=== PATIENT | female | born 1955 | race Caucasian/White ===

== ENCOUNTER 2024-07-12 03:01 | Inpatient (IN) | payer MEDICARE, BC, SELFPAY ==
[2024-07-11 19:59] VITALS: BP 138/97
[2024-07-11 20:18] LABS: % Basophils 0.8 % (0-2); % Eosinophils 0.5 % (0-6); % Immature Granulocytes 0.3 % (0-0.5); % Lymphocytes 18.2 % (20.5-51.1); % Neutrophils 65.2 % (42.2-75.2); Absolute Lymphocytes 0.7 10^3/uL (1.2-3.4); Absolute Monocytes 0.6 10^3/uL (0.1-0.6); Absolute Neutrophils 2.4 10^3/uL (1.4-6.5); Hematocrit 35.2 % (37.0-47.0); Hemoglobin 12.6 g/dL (12.0-16.0); Mean Corp Hgb Conc. 35.8 g/dL (33.0-37.0); Mean Corpuscular Hgb 32.6 pg (27.0-31.0); Nucleated Red Blood Cells % 0 %; Platelet Count 364 10^3/uL (130-400); Red Blood Cell Count 3.87 10^6/uL (4.20-5.40); Red Cell Dist. Width 13.6 % (11.5-14.5); White Blood Cell Count 3.7 10^3/uL (4.8-10.8)
[2024-07-11 20:31] LABS: ALT (SGPT) 44 U/L (0-35); AST (SGOT) 46 U/L (14-36); Albumin 4.1 g/dl (3.5-5.0); Alkaline Phosphatase 89 U/L (38-126); Blood Urea Nitrogen 29 mg/dl (7-17); Calcium 9.5 mg/dl (8.4-10.2); Carbon Dioxide 17 mmol/L (22-30); Chloride 95 mmol/L (98-107); Glucose 62 mg/dl (70-99); Lipase 1041 U/L (23-300); Potassium 4.5 mmol/L (3.5-5.1); Sodium 132 mmol/L (135-145); Total Bilirubin 0.5 mg/dl (0.2-1.3); eGFR 32.46
[2024-07-11 22:15] VITALS: BMI 18.3
--- NOTE | 2024-07-11 22:23 | ED.GENMED ---
History of Present Illness
General
Chief Complaint: Abdominal Pain
Source: patient and family
Exam Limitations: none
Time Seen by Provider: 07/11/24 21:58
Nursing documentation reviewed up to this point in time: agreed with
History of Present Illness
History of Present Illness:
This is a 69-year-old female who presents to the emergency department with continued nausea and vomiting. Patient was diagnosed with small bowel obstruction while in [facility] on July 03. Patient was there visiting to support her daughters
competition. 3 days into her trip, she started to develop nausea or vomiting. She went to their version of the emergency department and was admitted for 8 days. They diagnosed her with a small bowel obstruction. She was stable enough to be
discharged to fly home under the premise that she would come directly to the emergency department here when she landed. She came home today and came directly to the ER. She states that she has ongoing abdominal discomfort. She states that her
abdomen is distended. She has not been eating solid foods only liquids.
The patient has a past medical history significant for previous bowel obstructions. Her last one was in 2010. She does have metastatic ovarian cancer. She had a hysterectomy in 2004. She had a bowel resection in 2008 in 2009.
Past History
Past History
ED Past Medical History: Cancer (Ovarian cancer), HTN and Other (Small bowel obstruction November 2010 and again in December 2010); Negative Asthma or CAD
ED Past Surgical History: Bowel resection (November 2009, lysis of adhesions and small bowel resection December 2010), Gynecological (Total hysterectomy 2004) and Other (Subcutaneous Mediport); Negative Cardiac or Cholecystectomy
Social History
Tobacco: Non-smoker
Alcohol: None
Drug: None
Personal:
Living: with family
Employment: Employed
Family History
Family History: Hypertension
Review of Systems
Review of Systems
Allergies reviewed?: Yes
All Other Systems: ROS reviewed and negative except as documented in HPI and ROS
Constitutional: Reports fatigue and sleep disturbance
EENT: Reports no symptoms
Respiratory: Reports no symptoms
Cardiac: Reports no symptoms
ABD/GI: Reports abdominal pain, nausea, vomiting and constipated; Denies diarrhea
: Reports no symptoms
Musculoskeletal: Reports no symptoms
Skin: Reports no symptoms
Neurological: Reports no symptoms
Endocrine: Reports no symptoms
Hematologic/Lymphatic: Reports no symptoms
Psychiatric: Reports anxiety
Phy Exam
General Physical Exam
General Presentation: well appearing and mild distress
General Skin: warm and dry
General Habitus: cachetic and frail
General Mental: alert
General Hydration: appears well hydrated
ENT Exam
ENT Exam: EOMI, pharynx normal, neck supple and normocephalic
Eye Exam
Eye Exam: PERRL, cornea clear and conjunctiva normal
Cardiovascular Exam
Cardiovascular Exam: regular rate/rhythm, no edema, no murmur and normal peripheral pulses
Pulmonary Exam
Pulmonary Exam: lungs clear, no respiratory distress, no rales, no crackles, no rhonchi, no stridor, no wheezing and no cough
Gastrointestinal Exam
Gastrointestinal Exam: normal bowel sounds, non tender, soft, no organomegaly and no pulsatile mass
Palpation: generalized: Minimal tenderness
Neurological Exam
Neurological Exam: alert, oriented x3, no motor deficits and speech normal
Musculoskeletal Exam
Musculoskeletal Exam: full ROM and no edema
Skin Exam
Skin Exam: normal color, warm/dry, no rash and no petechia
Psychiatric Exam
Psychiatric Exam: normal mood/affect
Course
Orders/Labs/Results
Orders:
Orders
07/11/24 20:09
Complete Blood Count/With Diff Urgent
Comprehensive Metabolic Panel Urgent
Lipase Urgent
07/12/24 00:00
CT Abd/pelvis W Iv Cont Urgent
Reason For Exam: abdominal pain with elev lipase
07/12/24 01:16
NG Tube [GI tube insertion- Treatment] ONCE
Abnormal Lab Results
07/11/24
20:09
WBC 3.7 L 10^3/uL
(4.8-10.8)
RBC 3.87 L 10^6/uL
(4.20-5.40)
Hct 35.2 L %
(37.0-47.0)
MCH 32.6 H pg
(27.0-31.0)
Absolute Lymphs (auto) 0.7 L 10^3/uL
(1.2-3.4)
Lymphocytes % 18.2 L %
(20.5-51.1)
Monocytes % 15.0 H %
(1.7-9.3)
Sodium 132 L mmol/L
(135-145)
Chloride 95 L mmol/L
(98-107)
Carbon Dioxide 17 L mmol/L
(22-30)
BUN 29 H mg/dl
(7-17)
Creatinine 1.7 H mg/dL
(0.6-1.0)
Glucose 62 L mg/dl
(70-99)
AST 46 H U/L
(14-36)
ALT 44 H U/L
(0-35)
Lipase 1041 H* U/L
(23-300)
07/11/24 20:09
07/11/24 20:09
Vital Signs
Initial and Last Documented VS:
Initial Vital Signs
Temp Pulse Resp BP Pulse Ox
97.7 F 104 16 138/97 97
07/11/24 19:59 07/11/24 19:59 07/11/24 19:59 07/11/24 19:59 07/11/24 19:59
Last Documented Vital Signs
Temp Pulse Resp BP Pulse Ox
97.7 F 104 16 138/97 98
07/11/24 19:59 07/11/24 19:59 07/11/24 19:59 07/11/24 19:59 07/11/24 22:45
*Radiology
Radiology exam reviewed: radiology read reviewed
*Pulse Oximetry
Patient hypoxic: no
*Critical Care Note
Total Time (30-74mins, 75-104mins- exclusive of procedures): 32
comment:
Critical care statement: A total of 32 minutes of critical care time was provided for this patient. This time is separate from time utilized to perform the aforementioned documented procedures. Aggregate critical care time includes only time
during which I was engaged in work directly related to the patient's care, as described above, whether at the bedside or elsewhere in the Emergency Department.
Update Note
Update Note:
NAME: DARRYN VILLAVICENCIO
DATE OF EXAM: 07/12/2024
Patient No: [id number]
Physician: RICARDO
Date of : 1955
Past Medical History (entered by Technologist):
Reason For Exam (entered by Technologist):
Other Notes (entered by Technologist): pt reports she was diagnosed w/ a SBO in [facility] on July 03. pt was in the hospital in [place] for 8 days. since then, pt has had ongoing abdominal discomfort, distension, poor PO intake,
nausea/vomiting.
Prior sent
Additional Information (per [facility]iologist):
CT ABDOMEN/PELVIS WITH CONTRAST
IMPRESSION:
1. Dilated loops of small bowel measuring up to 5.2 cm, with multiple transition point at the level of the mid abdomen (series 201 image 50, 202, 17), compatible with high-grade closed-loop bowel obstruction, likely related to internal hernia.
Mild mesenteric edema, can be correlated with lactate. No evidence of free air. Recommend surgical consultation.
2. Normal gallbladder and appendix
Incidentals:
- No obstructive uropathy.
- No hepatic or pancreatic mass.
- No abdominal aortic aneurysm.
- No acute osseous abnormality.
- No acute abnormality within the visualized lungs.
- Mild anasarca
Case discussed with Dr. Marin of the ED at 1232 AM ET
NG tube orderd at Dr Conte's request.
ED Attending Note
-
Portions of this chart may have been created with voice recognition software.� Occasional wrong word or��sound alike� substitutions may have occurred due to the inherent limitations of voice recognition software.
Discharge Plan
Departure
Patient Disposition: Admit
Date of Disposition: 07/12/24
Time of Disposition: 01:20
Presentation/result/management discussed w/ accepting MD/DO: Hospitalist
Condition: Fair
Discharge Problem:
Closed-loop small bowel obstruction
Prescriptions:
No Action
Multiple Vitamins
1 tab PO DAILY
carvedilol 6.25 MG tablet
6.25 mg PO BID
nifedipine 30 MG tablet extended release
30 mg PO DAILY
prochlorperazine maleate 10 MG tablet
10 mg PO Q6HPRN PRN (Reason: nausea)
cholecalciferol (vitamin D3) [Vitamin D3] 400 UNIT capsule
400 unit PO DAILY
Calcium
600 mg PO BID
Carboplatin And Taxol
1 dose IV .EVERY 3 WEEKS
Investigational Drug Ipafricept
1 dose IV .EVERY 3 WEEKS
nifedipine 30 MG tablet extended release 24hr
30 mg PO DAILY Qty: 60 0RF
Rx Instructions:
take one tablet in the morning each day
lactulose [Enulose] 10 GM/15 ML solution
10 gm PO BID Qty: 300 0RF
Referrals:
Larissa Reynoso DO [Family Provider] -
Interventions
Interventions:
*Risk Screen - Suicide Last Done: 07/11/24 20:02
*General Assessment Last Done: 07/11/24 22:15
*Neglect/Abuse Screening Last Done: 07/11/24 22:15
*ED- Fall Risk Assessment Last Done: 07/11/24 22:15
*ED COVID-19 Vaccine History Last Done: 07/11/24 20:02
ZM-Juodee-Jgxgemopfh Assessment Last Done: 07/11/24 22:56
Discharge Date and Time
Print Language: TURKMEN
[2024-07-11 22:58] VITALS: BP 147/80
[2024-07-11 23:00] VITALS: BP 149/77
[2024-07-12] VITALS (19 sets, daily range): BP systolic 125–166; BP diastolic 76–103; BMI 17.5
--- NOTE | 2024-07-12 01:58 | HPS.HSE ---
Family Physician
-
Family Physician: Larissa Reynoso DO
Chief Complaint
-
Abdominal pain
History of Present Illness
Patient is 67-year-old female with just arrived from [facility] and had abdominal pain. While she was seen in [place] on vacation she was admitted and diagnosed with a small bowel obstruction. She was treated conservatively and left AMA to
[place] where [place] wants to continue her treatment.
Patient has significant past medical history of hypertension, hypothyroid and hyperlipidemia. She also has a past medical history significant for cancer status post bowel resection. She had bowel resection for bowel adhesions and obstruction in
the past. 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
She was hospitalized in [facility] for 8 days. She had an NG tube over that a day.. She continued to have high amounts of output. She deferred any surgical attempt until she called to come to the [facility]. She had mild BRADEN and some
hyponatremia to sodium of 128 which was treated with IV fluids. No other complications noted on that hospitalization.
In the emergency department here patient was afebrile, blood pressure was 130/97 with a pulse of 104 and she was satting 97% on room air.
CBC was unremarkable stop electrolytes BUN/creatinine were notable for a bicarb of 17 creatinine of 1.7 and a BUN of 29. Glucose was 62. She had a markedly elevated lipase level of 1041. LFTs otherwise abnormal.
CT scan of the abdomen pelvis showed dilated loops of small bowel measuring up to 5.2 cm with multiple transition point at the level of the mid abdomen compatible with high-grade closed-loop bowel obstruction, likely related to internal hernia.
Mild mesenteric edema. No gallbladder and no appendix. There were no hepatic or pancreatic mass.
Medical History
Past Medical History
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
Past Surgical History: Reports Bowel Resection (2009, 2010), Gynocological (Hysterectomy with oophorectomy) and Other (Splenectomy)
Social History
Tobacco: Non-smoker
Alcohol: None
Drug: None
Personal:
Living: With Family
Family History
Family History: Not pertinent
Allergies / Home Medications
Allergies reflects when Allergies were last updated in [employer].
Home Medications with original date entered in [employer]
Allergy/Medication List:
Allergies
Allergy/AdvReac Type Severity Reaction Status Date / Time
amoxicillin Allergy Rash Verified 11/01/18 12:44
Home Medications
Multiple Vitamins 1 tab PO DAILY 02/18/11
Calcium 600 mg PO BID 09/29/15
Carboplatin And Taxol 1 dose IV .EVERY 3 WEEKS last dose this past 09/2609/29/15
Investigational Drug Ipafricept 1 dose IV .EVERY 3 WEEKS 09/29/15
carvedilol 6.25 mg tablet 6.25 mg PO BID 09/29/15
cholecalciferol (vitamin D3) 10 mcg (400 unit) capsule (Vitamin D3) 400 unit PO DAILY 09/29/15
nifedipine 30 mg tablet,extended release 30 mg PO DAILY 09/29/15
prochlorperazine maleate 10 mg tablet 10 mg PO Q6HPRN PRN nausea 09/29/15
nifedipine 30 mg tablet,extended release 24 hr 30 mg PO DAILY ##60 11/23/17
lactulose 10 gram/15 mL oral solution (Enulose) 10 gm PO BID #300 mL 06/28/18
Review of Systems
-
History Source: Patient
Constitutional: Reports No Symptoms
EENT: Reports No Symptoms
Respiratory: Reports No Symptoms
Cardiac: Reports No Symptoms
Abdomen/GI: Reports Abdominal Pain
: Reports No Symptoms
Musculoskeletal: Reports No Symptoms
Skin: Reports No Symptoms
Neurological: Reports No Symptoms
Endocrine: Reports No Symptoms
Hematologic/Lymphatic: Reports No Symptoms
Psych: Reports No Symptoms
Physical Exam
Vital Signs
Vital Signs
Temp Pulse Resp BP Pulse Ox
97.7 F 104 16 138/97 98
07/11/24 19:59 07/11/24 19:59 07/11/24 19:59 07/11/24 19:59 07/11/24 22:45
Physical Exam
General: Poor Appetite
HEENT: NormoCephalic, Anicteric, Moist mucous membranes and Atraumatic
Respiratory: Clear
Cardiac: S1/S2 and Regular Rhythm
Breast: Deferred by me
GI: Soft, Non Tender, Non Distended and Other (NG tube with bilious output)
Rectal: Deferred by Provider
Genito-urinary: Deferred by me
Skin: Warm
Neuro: AO x 3 and Nonfocal/grossly intact
Hematologic/Lymphatic: No Lymphadenopathy
Psych: Calm
Laboratory Results
-
07/11/24 20:09
07/11/24 20:09
Laboratory Results
Total Bilirubin 0.5 mg/dl (0.2-1.3) 07/11/24 20:09
AST 46 U/L (14-36) H 07/11/24 20:09
ALT 44 U/L (0-35) H 07/11/24 20:09
Alkaline Phosphatase 89 U/L (38-126) 07/11/24 20:09
Lipase 1041 U/L (23-300) H* 07/11/24 20:09
Data Reviewed
-
CT Scan: Report Reviewed by me
Lab Data: Labs Reviewed by me
Old Records: Reviewed
Impression/Plan
-
IMPRESSION:
69-year-old with multiple intra-abdominal surgery presenting to the emergency department after being diagnosed with small bowel obstruction secondary to of the lesions in [place] with 8-day stay requiring NG tube decompression. She avoided surgery
to come [place] the [place].
She is currently has an NG tube placed in the ED with copious amount of bilious output. She is pain-free.
PLAN:
Small bowel obstruction�on the basis of adhesions, numerous prior abdominal surgery, history of previous SBO with adhesions status post surgical resection. 8 days of NG decompression in [place]. She is pending graduation on July 22.
-Admit to MedSurg
-Continue NG to low intermittent suction
-N.p.o.
-Pain control and antiemetics
-IV fluids with D5 LR for now
-Monitor serum sodium and creatinine.
-Surgery aware and will be seeing patient in the morning likely will require intervention
Hypertension
� IV metoprolol 5 every 6 with hold parameters, patient hypertensive and on carvedilol
� IV enalapril for lisinopril if needed
Hypothyroid - no levothyroxine in 8 days, replacement appropriate at around 70%. Will start with ~50% of her regular dose and titrate if stable
-Continue levothyroxine, giving IV formulation. She is on 112 MCG daily. Starting 50 mcg IV daily
DVT prophylaxis�heparin subcu for now
CODE STATUS�full code
[2024-07-12 02:45] LABS: Lactic Acid 0.8 mmol/L (0.7-2.0)
[2024-07-12] MEDS: D5/0.9% SODIUM CHLORIDE 1000 IV ×2 (05:05→22:00)
[2024-07-12] MEDS: LOPRESSOR 52.5 MG IV ×3 (05:26→23:09)
--- NOTE | 2024-07-12 05:46 | TRANSFER ---
Pt arrived from ED at 0430 w dx SBO. NGT to right nare set to LIWS, no flushes. NGT put out green/brown bilious drainage. VS WNL. Pt AAOx4, able to make all needs known. Discussed plan of care. Bed in lowest position, call noguera within reach.
[2024-07-12] MEDS: HEPARIN 5000 UNITS SC ×3 (07:34→23:12)
[2024-07-12 07:57] LABS: Venous Blood Gas B.E. -5.6 mmol/L (-4 to +4); Venous Blood Gas HCO3 20.7 mmol/L (22-27); Venous Blood Gas O2 Sat % 74.4 %; Venous Blood Gas pCO2 43 mmHg (35-48); Venous Blood Gas pH 7.29 (7.32-7.43); Venous Blood Gas pO2 45 mmHg (30-50)
[2024-07-12 08:00] LABS: Venous Blood Gas O2 Therapy ra
[2024-07-12 08:03] LABS: Hemoglobin 10.8 g/dL (12.0-16.0); Mean Corpuscular Hgb 32.7 pg (27.0-31.0); Mean Corpuscular Volume 90.9 fL (81.0-99.0); Mean Platelet Volume 10.1 fL (7.4-10.4); Platelet Count 368 10^3/uL (130-400); Red Cell Dist. Width 13.6 % (11.5-14.5); White Blood Cell Count 4.5 10^3/uL (4.8-10.8)
[2024-07-12 08:11] LABS: Lactic Acid 0.7 mmol/L (0.7-2.0)
[2024-07-12] MEDS: NSS (PRESERVATIVE FREE) 10 ML IV (08:45)
[2024-07-12] MEDS: PROTONIX IV 40 MG IV (08:46)
[2024-07-12 09:06] LABS: Blood Urea Nitrogen 30 mg/dl (7-17); Calcium 8.7 mg/dl (8.4-10.2); Carbon Dioxide 16 mmol/L (22-30); Chloride 97 mmol/L (98-107); Estimated Creatinine Clearance 28 ml/min; Glucose 98 mg/dl (70-99); Magnesium 1.9 mg/dl (1.6-2.3); Phosphorus 4.4 mg/dl (2.5-4.5); Potassium 4.3 mmol/L (3.5-5.1); Sodium 133 mmol/L (135-145); Triglycerides 133 mg/dl (10-149); eGFR 34.91
--- NOTE | 2024-07-12 09:28 | W.SUR.PREOP ---
Pre-Operative Surgical Note
-
I have examined this patient prior to the performance of the scheduled procedure.
The patient's condition is unchanged from the time of the current History and
Physical and the patient is able to undergo the scheduled procedure.
--- NOTE | 2024-07-12 09:30 | CON.GS ---
Addendum entered and electronically signed by Jayson Nettles MD 07/12/24 10:13:
I saw and examined the patient independently.
The resident's documentation was reviewed and I agree with the note, assessment and plan except where noted below.
Comment: This is a 69-year-old female with a history of ovarian cancer, status post hysterectomy and nephrectomy, splenectomy for metastatic disease, small bowel resection and lysis of adhesions for small bowel obstruction who presents with 10-day
history of abdominal pain, nausea vomiting that began while she was on a trip in [place]. She was admitted at a hospital there and managed nonoperatively. She left AMA to return to the night states and is here for further evaluation and management.
Given no significant improvement in her small bowel obstruction both clinically and radiographically will plan for operative exploration today. Also given how long she has been without food we will plan to place a PICC and start TPN later today.
Will plan for diagnostic laparoscopy, lysis of adhesions possible open.
Risks/Benefits/Alternatives, expected postoperative course and possible complications (bleeding, infection, injury to surrounding structures, acute/chronic pain) discussed at length. Patient wishes to proceed with surgery. All questions answered.
Consent obtained.
I spent 70 minutes in total for the care of this patient today including direct patient care and counseling, reviewing labs, imaging, coordination of care, as well as documentation.
Original Note:
Consultation
-
Date/Time Consultation Requested: 07/12 04:31
Date/Time Consultation Performed: 07/12 07:45
Performing Provider: Dr. Jayson Nettles
Reason for Consultation: SBO
Medical History
-
Chief Complaint: SBO
History of Present Illness:
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 She was in [place] when she started to have abdominal pain on 07/01. She was admitted to the hospital in [facility] with a small bowel obstruction. She was there for 8 days with NG tube placement and then left AMA for further treatment in the [place].
In the ED, patient is afebrile, heart rate 104, satting well on room air. Creatinine 1.7, bun 29, glucose 62, lipase 1041. LFTs otherwise unremarkable. CT scan of the abdomen pelvis showed dilated loops of small bowel measuring up to 5.2 cm with
multiple transition point at the level of the mid abdomen compatible with high-grade closed-loop bowel obstruction, likely related to internal hernia. Mild mesenteric edema. No gallbladder and no appendix. There were no hepatic or pancreatic mass.
Past Medical History
Past Medical History: Other (Ovarian cancer diagnosed 2004, hypertension, hypercholesterolemia, hypothyroidism, oral squamous cell cancer s/p resection)
Past Surgical History: Other (Bowel resection (2009 due to metastatic ovarian cancer, 2010 SBO due to adhesions), hysterectomy and oophorectomy, splenectomy (2020 due to metastatic ovarian cancer) )
Social History
Tobacco: Non-Smoker
Alcohol: None
Drug: None
Personal:
Living: With Family
Allergies / Home Medications
Allergy/AdvReac Type Severity Reaction Status Date / Time
amoxicillin Allergy Rash Verified 11/01/18 12:44
�Medication �Instructions �Recorded �Confirmed �Type
Multiple Vitamins 1 tab PO DAILY 02/18/11 07/12/24 History
Calcium 600 mg PO BID 09/29/15 07/12/24 History
Carboplatin And Taxol 1 dose IV .EVERY 3 WEEKS last dose 09/29/15 07/12/24 History
this past 09/26
Investigational Drug Ipafricept 1 dose IV .EVERY 3 WEEKS 09/29/15 07/12/24 History
carvedilol 6.25 mg tablet 3.125 mg PO BID 09/29/15 07/12/24 History
cholecalciferol (vitamin D3) 10 400 unit PO DAILY 09/29/15 07/12/24 History
mcg (400 unit) capsule (Vitamin D3)
nifedipine 30 mg tablet,extended 10 mg PO DAILY 09/29/15 09/29/15 History
release
prochlorperazine maleate 10 mg 10 mg PO Q6HPRN PRN nausea 09/29/15 07/12/24 History
tablet
nifedipine 30 mg tablet,extended 30 mg PO DAILY ##60 11/23/17 07/12/24 Rx
release 24 hr
lactulose 10 gram/15 mL oral 10 gm PO BID #300 mL 06/28/18 07/12/24 Rx
solution (Enulose)
atorvastatin 10 mg tablet 10 mg PO HS 07/12/24 07/12/24 History
levothyroxine 112 mcg tablet 112 mcg PO DAILY 07/12/24 07/12/24 History
lisinopril 10 mg tablet 10 mg PO DAILY 07/12/24 07/12/24 History
magnesium oxide 400 mg PO DAILY 07/12/24 07/12/24 History
Review of Systems
-
History Source: Patient
Constitutional: No Symptoms
EENT: No Symptoms
Respiratory: No Symptoms
Cardiac: No Symptoms
Abdomen/GI: No Symptoms and Other (No bowel movements, not passing gas)
: No Symptoms
Neurological: No Symptoms
A 10 point review of systems was completed, and was negative except as per HPI.
Physical Exam
Vital Signs
Temp Pulse Resp BP Pulse Ox
97.6 F 72 16 158/84 98
07/12/24 08:08 07/12/24 08:08 07/12/24 08:08 07/12/24 08:08 07/12/24 08:08
07/11/24 07/12/24 07/13/24
06:59 06:59 06:59
Actual Weight 52.163 kg
Body Mass Index (BMI) 17.5
Lab Results
07/12/24 07:41
07/12/24 07:41
WBC 4.5 10^3/uL (4.8-10.8) L 07/12/24 07:41
Hgb 10.8 g/dL (12.0-16.0) L 07/12/24 07:41
Hct 30.0 % (37.0-47.0) L 07/12/24 07:41
Plt Count 368 10^3/uL (130-400) 07/12/24 07:41
Abs Immat Gran (auto) 0.0 10^3/uL (0-0.05) 07/11/24 20:09
Neutrophils % 65.2 % (42.2-75.2) 07/11/24 20:09
Physical Exam
General: No Apparent Distress and Comfortable
Respiratory: Non Labored Respirations
Cardiac: Regular Rhythm
GI: Soft, Distended (tympanic ) and Incisions
Skin: Warm and Dry
Neuro: AO x 3
Psych: Calm
Assessment / Plan
-
61-year-old female presenting with small bowel obstruction
AFVSS
Cr downtrending, WBC low
No complaints of ab pain, N/V, but has not been passing gas or BM since hospitalization in [place]
Is not currently on any chemo therapy for Ovarian cancer, but was planning on discussing re-starting with heme/onc this friday.
Plan:
--To OR today for exploratory laparotomy - expected twisting of small bowel causing SBO with potential loss of blood flow to the area given CT findings
--NPO
--NG tube with sips of clears for comfort
--PPI
--Pre-op 2g cefazolin
--TPN as no PO intake for last several days
--Pain management
--IVF
--Sq heparin for DVT
[2024-07-12 12:07] LABS: Prealbumin (Transthyretin) 16.9 mg/dl (17.6-36.0)
--- NOTE | 2024-07-12 12:38 | W.IMMPOSTOP ---
Addendum entered and electronically signed by Jayson Nettles MD 07/15/24 14:41:
for CDI purposes: the bowel was noted to be ACUTELY ischemic
Original Note:
Surgical Immed Post Op Note
-
Primary Surgeon: Jayson Nettles MD
Assisting Surgeon: BETTINA Patton
Pre-op Diagnosis: Small bowel obstruction, history of metastatic ovarian disease
Post-op Diagnosis: Same
Procedure Performed:
1. Laparoscopic converted to open lysis of adhesions
2. Small bowel resection
3. Peritoneal nodule biopsy.
Anesthesia Type: General
Specimen / Cultures:
1. Small bowel
2. Peritoneal nodule
Estimated Blood Loss: 11 cc
Complications: None
Operative Findings: 2 adhesions to the anterior abdominal wall, questionable metastatic implants. More definitive looking metastatic implants noted in the left upper quadrant abdominal wall taken the specimen #2. Significantly strictured and
ischemic bowel noted around one of the adhesions, likely the transition point. Conversion to open for small bowel resection (specimen #1) and further lysis of adhesions. A [id number], functional end-to-end stapled anastomosis was created using 2
firings of an 80 BRUNO purple. The common enterotomy staple line was oversewn with 3-0 silk pops and the mesentery defect was closed. About 1.5 L of enteric contents was milked back retrograde to the stomach and evacuated through her NG.
POST OP PLAN:
Imaging: None
Labs: Routine AM
Diet: N.p.o., IV fluids. Plan to start TPN as soon as PICC line access obtained.
Analgesia: IV Tylenol, okay for Toradol, Dilaudid 0.5mg q2h PRN
Neuro/vascular checks: q4h
AC/AP: Hold Therapeutic AC, Ok for DVT PPx
Activity: Ad Cristy
Wound/Incisions/Drains: Routine
Abx: None
Dispo: RNF, anticipate return of bowel function. Anticipate a 4 to 5-day stay in the hospital.
[2024-07-12 13:15] LABS: Glucose - Point of Care 83 mg/dl (70-99)
[2024-07-12] MEDS: LOPRESSOR IV (13:55)
[2024-07-12] MEDS: NOVOLOG FLEXPEN-LOW RESISTANCE SC ×2 (13:55→17:56)
--- NOTE | 2024-07-12 14:17 | W.PN.HOSP.TC ---
Today's Communication/Plan
-
Continue current care
Assessment / Plan
Assessment / Plan
Gen-AAOx3, NAD
HEENT-NC, AT, anicteric, clear oral mm
Neck-supple
CV-reg, no M, +S1/S2
Lungs-clear B/L
Abd-soft, NT, ND
Ext-no edema
Musculoskeletal-no cyanosis, clubbing
Skin-warm and dry
Neuro-grossly non-focal
Psych-calm, cooperative
Recurrent small bowel obstruction -stable after laparoscopic/open lysis of adhesions, 07/12. This is her second bout of SBO.
N.p.o. per general surgery. Anticipate TPN given need for bowel recovery. She has been n.p.o. for at least 8 days as she was not fed during her hospitalization in [place] prior to hospitalization in our facility. Prealbumin 16.9.
Leukopenia -unclear etiology. Perhaps due to investigational drug treatment. Monitor for now.
Hyponatremia -likely chronic. Monitor for now.
Lipase elevation -no evidence of pancreatitis clinically. Pancreas on CT scan is atrophic without focal lesions.
CKD 3A -suspect renal function at baseline.
History of metastatic ovarian cancer -2004. [facility]. Due for follow-up in the future. Has chemotherapy port in place.
Oral cancer -2022
Essential hypertension -stable.
Hyperlipidemia -on atorvastatin.
Hypothyroidism -levothyroxine.
Full code
Anticipated Discharge: > 48 hours
Subjective/Interval History
-
Date of Service: July 12, 2024
Patient seen and examined in recovery room. No complaints.
Objective Data
-
Labs:
Laboratory Results
07/12/24
07:41
WBC 4.5 L
Hgb 10.8 L
Hct 30.0 L
Plt Count 368
Sodium 133 L
Potassium 4.3
Chloride 97 L
Carbon Dioxide 16 L
BUN 30 H
Creatinine 1.6 H
Glucose 98
Calcium 8.7
Vital Signs:
Vital Signs
Temp Pulse Resp BP Pulse Ox
97.2 F 75 14 125/79 100
07/12/24 13:55 07/12/24 13:45 07/12/24 13:45 07/12/24 13:45 07/12/24 13:55
I&O
07/11/24 07/12/24 07/13/24
06:59 06:59 06:59
Intake Total 52.5 / 52.5 100 / 100
Output Total 200 / 200 250 / 250
Balance -147.5 / -147.5 -150 / -150
Review of Systems
-
History Source: Patient
All other systems: Reviewed and negative
--- NOTE | 2024-07-12 14:32 | CM ---
CM following re: discharge planning.
Reviewed pt's chart, met with pt and pt's at bedside.
Pt is a 69 year old female, admitted with primary dx of Small bowel obstruction, history of metastatic ovarian disease. pt returned from OR and information obtained from pt's .
Per he and the [pt live in a 2SH, 2 steps to enter, have 2 supportive children. pt's described the [pt as independent in all areas [employer]. No DMF, VN or SNF history. Pt's stated that pt has been receiving treatment at [facility] for the past 20 years.
PCP: Larissa Reynoso
Pharmacy: [facility].
D/C plan: home with anticipated no needs. to transport at discharge.
CM will follow with discharge plan updates as hospitalization progresses
--- NOTE | 2024-07-12 14:46 | PTCARENOTE ---
pt returned from PACU drowsy but responds to verbal stimuli. VS WNL, on RA. 3 small lap sites across abd and 1 midline primiseal with drainage present and marked. Ice applied. Right NG @60 hooked up to LIS. IVF. SCDs, CB in reach,
[2024-07-12] MEDS: OFIRMEV 100 IV (17:00)
[2024-07-12] MEDS: LEVOTHROID 50 MCG IV (17:01)
[2024-07-12 17:55] LABS: Glucose - Point of Care 116 mg/dl (70-99)
[2024-07-12] MEDS: Parenteral Nutrition, Central 770 IV (21:03)
[2024-07-12] MEDS: DILAUDID 0.25 MG IV (23:11)
[2024-07-12 23:55] LABS: Glucose - Point of Care 295 mg/dl (70-99)
[2024-07-13] MEDS: NOVOLOG FLEXPEN-LOW RESISTANCE 3 UNITS SC ×2 (01:08→06:30)
[2024-07-13] MEDS: D5/0.9% SODIUM CHLORIDE IV (01:47)
[2024-07-13] MEDS: NSS 1000 IV (01:47)
[2024-07-13 03:00] VITALS: BP 140/87
[2024-07-13 04:45] VITALS: BMI 17.6
[2024-07-13] MEDS: LOPRESSOR 52.5 MG IV ×4 (05:37→21:57)
[2024-07-13 06:26] LABS: Glucose - Point of Care 280 mg/dl (70-99)
[2024-07-13 07:01] LABS: Blood Urea Nitrogen 27 mg/dl (7-17); Carbon Dioxide 23 mmol/L (22-30); Chloride 104 mmol/L (98-107); Estimated Creatinine Clearance 34 ml/min; Glucose 304 mg/dl (70-99); Lipase 308 U/L (23-300); Magnesium 2.1 mg/dl (1.6-2.3); Phosphorus 2.6 mg/dl (2.5-4.5); Potassium 4.1 mmol/L (3.5-5.1); Sodium 134 mmol/L (135-145); eGFR 44.79
[2024-07-13 07:19] VITALS: BP 162/96
[2024-07-13] MEDS: PROTONIX IV 40 MG IV (09:28)
[2024-07-13] MEDS: HEPARIN 5000 UNITS SC ×2 (09:28→17:23)
[2024-07-13] MEDS: NSS (PRESERVATIVE FREE) 10 ML IV (09:28)
--- NOTE | 2024-07-13 10:04 | W.PN.GS2 ---
Today's Communication / Plan
-
-- NPO, NGT (OK for sips given dry mouth)
-- TPN re-ordered, no need for additional IVF
Assessment / Plan
-
Patient is a 69 yo F p/w adhesive complete SBO
POD# s/p laparoscopic to open HUGO, SBR, and biopsy of peritoneal nodules
AVSS
Repeat CBC for tomorrow, CMP notable for hyponatremia, improved BRADEN, elevated glucose
Overall recovering well. Awaiting return of bowel function. Discussed that given the chronicity of her SBO this may take some time and would likely treat more conservatively. No significant changes from a general surgery perspective.
-- NPO, NGT (OK for sips given dry mouth)
-- TPN re-ordered, no need for additional IVF
-- Pain control: Tylenol, IV Dilaudid PRN
-- OOB/ambulate
-- DVT: SQH
-- GI: PPI
Subjective Data
-
Date of Service: July 13, 2024
No significant complaints. Pain overall well-controlled, she does report some soreness in her abdomen particularly with movement. No nausea or vomiting. No flatus or BM. Minimal ambulation. Valdes removed. Afebrile.
Objective Data
-
Intake and Output
07/12/24 07/13/24 07/14/24
06:59 06:59 06:59
Intake Total 52.5 / 52.5 100 / 100
Output Total 200 / 200 700 / 700
Balance -147.5 / -147.5 -600 / -600
Intake:
IV fluids (Total) 100 / 100
Normosol 100 / 100
IV piggybacks 52.5 / 52.5
Output:
Gastrointestinal tube output ( 200 / 200 100 / 100
Total)
[place] Sump 200 / 200 100 / 100
Urine, Valdes 600 / 600
Vital Signs
Temp Pulse Resp BP Pulse Ox
98.0 F 88 16 162/96 98
07/13/24 07:19 07/13/24 07:19 07/13/24 07:19 07/13/24 07:19 07/13/24 07:19
Lab Results
07/12/24 07:41
07/13/24 05:46
Calcium 8.0 mg/dl (8.4-10.2) L 07/13/24 05:46
Phosphorus 2.6 mg/dl (2.5-4.5) 07/13/24 05:46
Magnesium 2.1 mg/dl (1.6-2.3) 07/13/24 05:46
Total Bilirubin 0.5 mg/dl (0.2-1.3) 07/11/24 20:09
AST 46 U/L (14-36) H 07/11/24 20:09
ALT 44 U/L (0-35) H 07/11/24 20:09
Alkaline Phosphatase 89 U/L (38-126) 07/11/24 20:09
Total Protein 7.0 g/dl (6.3-8.2) 07/11/24 20:09
Albumin 4.1 g/dl (3.5-5.0) 07/11/24 20:09
Physical Exam
-
Gen: NAD
HEENT: minimal dark bilious
Abd: soft, tender to palpation diffusely, mild distension, non-peritoneal, mild strike through of midline dressing
Patient has a valdes catheter: No
Patient has a central line: No
--- NOTE | 2024-07-13 11:02 | PN.CDI ---
CDI
- -
CDI:
Physician Documentation Request
Admit Date: 07/12/24 03:01
Dear Doctor Charlene,
Please review the following and provide your response in the progress notes.
Clinical Indicators:
Height: 5'8
Weight: 115 lbs
BMI: 17.6
If possible, please provide an associated diagnosis related to the abnormal BMI, such as:
Underweight
Cachectic
Other (please specify)
Use of terms such as suspected, likely, concern for, or probable (associated with a specific diagnosis that is being evaluated, monitored, or treated as if it exists) are acceptable and can be coded in the inpatient setting, when documented at the
time of discharge.
Thank you,
Lina Kennedy RN
CDI Specialist
Please use your independent medical judgment in providing your response.
--- NOTE | 2024-07-13 11:04 | W.PN.HOSP.TC ---
Addendum entered and electronically signed by Tashi Chang DO 07/13/24 12:16:
Underweight - BMI 17.6.
Original Note:
Today's Communication/Plan
-
Lantus/NovoLog
Monitor glucoses
Hemoglobin A1c
Incentive spirometry
Assessment / Plan
Assessment / Plan
Gen-AAOx3, NAD
HEENT-NC, AT, anicteric, clear oral mm
Neck-supple
CV-reg, no M, +S1/S2
Lungs-clear B/L
Abd-soft, NT, ND
Ext-no edema
Musculoskeletal-no cyanosis, clubbing
Skin-warm and dry
Neuro-grossly non-focal
Psych-calm, cooperative
Recurrent small bowel obstruction -stable after laparoscopic/open lysis of adhesions, 07/12. This is her second bout of SBO.
N.p.o. per general surgery, await return of bowel function. Continue TPN per surgical service. She has been n.p.o. for at least 8 days as she was not fed during her hospitalization in [place] prior to hospitalization in our facility. Prealbumin
16.9.
Mcmillan catheter removed 07/13 morning. Patient able to void.
Leukopenia -unclear etiology. Perhaps due to investigational drug treatment. Monitor for now.
TPN induced hyperglycemia -start basal/bolus insulin [id number]. Monitor closely. Carbohydrate content of TPN reduced by surgical service.
Hyponatremia -likely chronic. Monitor for now. Sodium improving.
Lipase elevation -no evidence of pancreatitis clinically. Pancreas on CT scan is atrophic without focal lesions.
BRADEN on CKD 3A -suspect BRADEN related to volume depletion, now improving. Creatinine 1.7 admission, 1.3 today. Patient states her creatinine was 2.5 in [place] last week.
History of metastatic ovarian cancer -2004. [facility]. Due for follow-up in the future. Has chemotherapy port in place.
Oral cancer -2022
Essential hypertension -stable.
Hyperlipidemia -on atorvastatin.
Hypothyroidism -levothyroxine.
Full code
Anticipated Discharge: > 48 hours
Subjective/Interval History
-
Date of Service: July 13, 2024
Patient seen and examined. Pain under reasonable control. No complaints.
Objective Data
-
Labs:
Laboratory Results
07/13/24
05:46
Sodium 134 L
Potassium 4.1
Chloride 104
Carbon Dioxide 23
BUN 27 H
Creatinine 1.3 H
Glucose 304 H
Calcium 8.0 L
Vital Signs:
Vital Signs
Temp Pulse Resp BP Pulse Ox
98.0 F 88 16 162/96 98
07/13/24 07:19 07/13/24 07:19 07/13/24 07:19 07/13/24 07:19 07/13/24 07:19
I&O
07/12/24 07/13/24 07/14/24
06:59 06:59 06:59
Intake Total 52.5 / 52.5 100 / 100
Output Total 200 / 200 700 / 700
Balance -147.5 / -147.5 -600 / -600
Review of Systems
-
History Source: Patient
All other systems: Reviewed and negative
[2024-07-13 11:06] VITALS: BP 165/93
[2024-07-13] MEDS: LANTUS 0.1 UNITS SC (11:23)
[2024-07-13 11:24] LABS: Glucose - Point of Care 221 mg/dl (70-99)
[2024-07-13] MEDS: NOVOLOG FLEXPEN 5 UNITS SC ×2 (12:35→17:31)
[2024-07-13] MEDS: NOVOLOG FLEXPEN-LOW RESISTANCE 2 UNITS SC (12:35)
--- NOTE | 2024-07-13 14:03 | CM ---
Reviewed the chart notes and spoke with the patient at the bedside. NGT in place. TPN infusing. CM Consult for home TPN. Clinicals faxed to [facility]. CM continues to be available to patient/family and is monitoring medical plan for needs at
discharge.
Plan: Discharge plans will depend on the patient's progress.
[2024-07-13 15:03] LABS: Glycohemoglobin (HgbA1c) 4.8 % (4.0-5.6)
[2024-07-13 15:12] VITALS: BP 169/96
[2024-07-13] MEDS: LEVOTHROID 50 MCG IV (17:19)
[2024-07-13] MEDS: NOVOLOG FLEXPEN-LOW RESISTANCE SC (17:30)
[2024-07-13 17:31] LABS: Glucose - Point of Care 145 mg/dl (70-99)
[2024-07-13] MEDS: OFIRMEV 100 IV (17:48)
[2024-07-13] MEDS: Parenteral Nutrition, Central 780 IV (21:18)
[2024-07-13 23:12] VITALS: BP 159/93
[2024-07-13 23:56] LABS: Glucose - Point of Care 143 mg/dl (70-99)
[2024-07-14] MEDS: NOVOLOG FLEXPEN-LOW RESISTANCE SC ×5 (00:24→23:54)
[2024-07-14] MEDS: NOVOLOG FLEXPEN SC (00:34)
[2024-07-14] MEDS: HEPARIN 5000 UNITS SC ×4 (00:50→23:44)
[2024-07-14 03:00] LABS: Glucose - Point of Care 136 mg/dl (70-99)
--- NOTE | 2024-07-14 03:05 | W.PN.UPDATE ---
Update Note
Progress Note Update
Midnight accucheck 143,�Novolog 5 unit SC Q6H dose held. Rechecked� 3 AM�glucose result 136.� Standing Q6H Novolog 5 unit SC coverage on hold, restart as per Attending.
[2024-07-14] MEDS: LOPRESSOR 52.5 MG IV ×4 (04:11→23:42)
[2024-07-14] MEDS: OFIRMEV 100 IV (04:52)
[2024-07-14 05:36] VITALS: BMI 17.5
[2024-07-14 05:47] LABS: Glucose - Point of Care 127 mg/dl (70-99)
[2024-07-14 07:39] LABS: Hematocrit 25.9 % (37.0-47.0); Hemoglobin 9.3 g/dL (12.0-16.0); Mean Corp Hgb Conc. 35.9 g/dL (33.0-37.0); Mean Corpuscular Hgb 33.1 pg (27.0-31.0); Mean Corpuscular Volume 92.2 fL (81.0-99.0); Mean Platelet Volume 12.4 fL (7.4-10.4); Platelet Count 340 10^3/uL (130-400); Red Blood Cell Count 2.81 10^6/uL (4.20-5.40); Red Cell Dist. Width 14.2 % (11.5-14.5); White Blood Cell Count 7.5 10^3/uL (4.8-10.8)
[2024-07-14 07:40] VITALS: BP 168/95
[2024-07-14 07:53] LABS: Blood Urea Nitrogen 28 mg/dl (7-17); Calcium 8.6 mg/dl (8.4-10.2); Carbon Dioxide 24 mmol/L (22-30); Chloride 108 mmol/L (98-107); Estimated Creatinine Clearance 44 ml/min; Glucose 119 mg/dl (70-99); Magnesium 2.1 mg/dl (1.6-2.3); Phosphorus 2.3 mg/dl (2.5-4.5); Potassium 4.3 mmol/L (3.5-5.1); Sodium 140 mmol/L (135-145); eGFR > 60.00
[2024-07-14] MEDS: NSS (PRESERVATIVE FREE) 10 ML IV (08:11)
[2024-07-14] MEDS: PROTONIX IV 40 MG IV (08:11)
[2024-07-14] MEDS: LANTUS 0.1 UNITS SC (08:12)
[2024-07-14 09:13] LABS: % Basophils 0.1 % (0-2); % Eosinophils 0.1 % (0-6); % Immature Granulocytes 0.8 % (0-0.5); % Monocytes 6.9 % (1.7-9.3); % Neutrophils 84.1 % (42.2-75.2); Absolute Immature Granulocytes 0.1 10^3/uL (0-0.05); Absolute Lymphocytes 0.6 10^3/uL (1.2-3.4); Absolute Monocytes 0.5 10^3/uL (0.1-0.6); Absolute Neutrophils 6.3 10^3/uL (1.4-6.5); Nucleated Red Blood Cells % 0 %
--- NOTE | 2024-07-14 11:13 | W.PN.GS2 ---
Addendum entered and electronically signed by Lalo Barillas MD 07/14/24 11:35:
I saw and examined the patient.
The resident's note was reviewed and I agree with the note.
Comment: Stable. No complaints. No flatus yet. Aquacel OK, ab exam soft, mild distention, approp ttp, NGT with scant bilious drainage. Cont current mgmt. TPN renewed, phos increased.
Original Note:
Today's Communication / Plan
-
Cont TPN
Encourage OOB
Assessment / Plan
-
Patient is a 69 yo F p/w adhesive complete SBO
POD#2 s/p laparoscopic to open HUGO, SBR, and biopsy of peritoneal nodules
AVSS
WBC wnl, however prior to surgery leukopenic. BRADEN resolved.
Pathology pending
Overall recovering well. Awaiting return of bowel function. Discussed that given the chronicity of her SBO this may take some time and would likely treat more conservatively. No significant changes from a general surgery perspective. Pt appears
motivated to recover quickly.
-- NPO, NGT (OK for sips given dry mouth) - await for return of bowel function before advancing diet.
-- TPN re-ordered, no need for additional IVF
-- Pain control: Tylenol, IV Dilaudid PRN
-- OOB/ambulate
-- DVT: SQH
-- GI: PPI
Subjective Data
-
Date of Service: July 14, 2024
Pt is feeling tired, but has evident motivation to get better and plans to walk around today with nursing staff. No gas or BM yet, denies N/V. Wants to get better quickly.
Objective Data
-
Intake and Output
07/13/24 07/14/24 07/15/24
06:59 06:59 06:59
Intake Total 100 / 100 2069
Output Total 700 / 700 260 / 260
Balance -600 / -600 1809
Intake:
Oral fluids 0 / 0
IV fluids (Total) 100 / 100 300 / 300
Normosol 100 / 100
IV piggybacks 450 / 450
TPN/PPN 780 / 780
Amount instilled into GI Tube ( 540 / 540
Total)
[place] Sump 540 / 540
Output:
Gastrointestinal tube output ( 100 / 100 260 / 260
Total)
[place] Sump 100 / 100 260 / 260
Urine, [place] 600 / 600
Other:
Number of approximated MODERATE 1 1
amounts of urine
Vital Signs
Temp Pulse Resp BP Pulse Ox
98.6 F 90 16 176/105 97
07/14/24 07:40 07/14/24 10:52 07/14/24 07:40 07/14/24 10:52 07/14/24 07:40
Lab Results
07/14/24 06:09
07/14/24 06:09
Calcium 8.6 mg/dl (8.4-10.2) 07/14/24 06:09
Phosphorus 2.3 mg/dl (2.5-4.5) L 07/14/24 06:09
Magnesium 2.1 mg/dl (1.6-2.3) 07/14/24 06:09
Total Bilirubin 0.5 mg/dl (0.2-1.3) 07/11/24 20:09
AST 46 U/L (14-36) H 07/11/24 20:09
ALT 44 U/L (0-35) H 07/11/24 20:09
Alkaline Phosphatase 89 U/L (38-126) 07/11/24 20:09
Total Protein 7.0 g/dl (6.3-8.2) 07/11/24 20:09
Albumin 4.1 g/dl (3.5-5.0) 07/11/24 20:09
Physical Exam
-
NAD
NG tube placed draining dark bilious fluid.
Ab soft, distended, tender around incisions.
[2024-07-14 11:47] LABS: Glucose - Point of Care 121 mg/dl (70-99)
--- NOTE | 2024-07-14 12:28 | W.PN.HOSP.TC ---
Today's Communication/Plan
-
Discontinue standing dose NovoLog
Reduce dose of Lantus
Assessment / Plan
Assessment / Plan
Gen-AAOx3, NAD
HEENT-NC, AT, anicteric, clear oral mm
Neck-supple
CV-reg, no M, +S1/S2
Lungs-clear B/L
Abd-soft, NT, ND
Ext-no edema
Musculoskeletal-no cyanosis, clubbing
Skin-warm and dry
Neuro-grossly non-focal
Psych-calm, cooperative
Recurrent small bowel obstruction -stable after laparoscopic/open lysis of adhesions, 07/12. This is her second bout of SBO.
N.p.o. per general surgery, await return of bowel function. Continue TPN per surgical service. She has been n.p.o. for at least 8 days as she was not fed during her hospitalization in [place] prior to hospitalization in our facility. Prealbumin
16.9. She is underweight. BMI 17.5.
Mcmillan catheter removed 07/13 morning. Patient able to void.
Leukopenia -unclear etiology. Perhaps due to investigational drug treatment. WBC count recovered.
Normocytic anemia -likely chronic. Monitor for now.
TPN induced hyperglycemia -glucoses significantly better, 119 this morning. Discontinue standing dose NovoLog, reduce Lantus to 5 units daily.
Hyponatremia -resolved.
Hypophosphatemia -2.3 today. Should replete with TPN.
Lipase elevation -no evidence of pancreatitis clinically. Pancreas on CT scan is atrophic without focal lesions.
BRADEN on CKD 3A -suspect BRADEN related to volume depletion, now improving. BRADEN resolved. Creatinine improved, 1.0 today.
History of metastatic ovarian cancer -2004. [facility]. Due for follow-up in the future. Has chemotherapy port in place.
Oral cancer -2022
Essential hypertension -blood pressure uncontrolled due to n.p.o. status. She usually takes carvedilol 3.125 mg twice daily, lisinopril 10 mg daily, nifedipine 30 mg daily. Currently on IV metoprolol every 6 hours. Unclear how much pain is
contributing to her blood pressure elevation.
Hyperlipidemia -on atorvastatin.
Hypothyroidism -levothyroxine.
Full code
Anticipated Discharge: > 48 hours
Subjective/Interval History
-
Date of Service: July 14, 2024
Patient seen and examined. Currently no complaints.
Objective Data
-
Labs:
Laboratory Results
07/14/24
06:09
WBC 7.5
Hgb 9.3 L
Hct 25.9 L
Plt Count 340
Sodium 140
Potassium 4.3
Chloride 108 H
Carbon Dioxide 24
BUN 28 H
Creatinine 1.0
Glucose 119 H
Calcium 8.6
Vital Signs:
Vital Signs
Temp Pulse Resp BP Pulse Ox
98.6 F 90 16 176/105 97
07/14/24 07:40 07/14/24 10:52 07/14/24 07:40 07/14/24 10:52 07/14/24 07:40
I&O
07/13/24 07/14/24 07/15/24
06:59 06:59 06:59
Intake Total 100 / 100 2069
Output Total 700 / 700 260 / 260
Balance -600 / -600 1809 / 1809
Review of Systems
-
History Source: Patient
All other systems: Reviewed and negative
--- NOTE | 2024-07-14 13:05 | CM ---
Addendum entered by Elias Mei 07/14/24 14:10:
Per Surgeon, a plan is for pt not to have TPN at home and pt will be able to eat before she will be discharged.
CM cancelled request for home TPN infusion therapy, spoke to [facility] liaison.
Arun MAGDALENO is aware of cancellation.
D/C plan: home with anticipated no needs
CM will follow with discharge plan updates as hospitalization progresses
Original Note:
CM following re: discharge planning.
Reviewed pt's chart, met with pt.
Per MD, pt will need TPN infusion at home.
A referral to [facility] infusion therapy noted.
CM spoke to [facility] liaison and she confirmed she received a referral, TPN order form faxed to this CM for MD to complete and MD not for TPN infusion therapy for more than 90 days required for insurance purposes. CM TTed Surgeon regarding
completing TPN form and required documentation. [facility] liaison stated they will work on approval from Medicare when all necessary documentation is available. Arun MAGDALENO will manage TPN infusion at home. A referral to Ar[facility] MAGDALENO made.
D/C plan: home with [facility] TPN infusion therapy, Arun MAGDALENO and family support.
CM will follow with discharge plan updates as hospitalization progresses
[2024-07-14] MEDS: CALCIUM GLUCONATE 100 IV (15:18)
[2024-07-14 15:25] VITALS: BP 159/60
[2024-07-14] MEDS: LEVOTHROID 50 MCG IV (17:01)
[2024-07-14 18:05] LABS: Glucose - Point of Care 117 mg/dl (70-99)
[2024-07-14] MEDS: Parenteral Nutrition, Central 780 IV (21:29)
[2024-07-14 23:00] VITALS: BP 168/99
[2024-07-14] MEDS: LOPRESSOR IV (23:39)
[2024-07-14 23:50] LABS: Glucose - Point of Care 119 mg/dl (70-99)
[2024-07-15] MEDS: OFIRMEV 100 IV (02:57)
[2024-07-15 03:47] VITALS: BMI 17.2
[2024-07-15] MEDS: LOPRESSOR 52.5 MG IV ×4 (05:41→23:27)
[2024-07-15 05:42] LABS: Glucose - Point of Care 121 mg/dl (70-99)
[2024-07-15] MEDS: NOVOLOG FLEXPEN-LOW RESISTANCE SC ×4 (05:42→23:30)
[2024-07-15 07:20] LABS: % Basophils 0.2 % (0-2); % Eosinophils 1.8 % (0-6); % Immature Granulocytes 0.5 % (0-0.5); % Lymphocytes 9.8 % (20.5-51.1); % Monocytes 5.3 % (1.7-9.3); % Neutrophils 82.4 % (42.2-75.2); Absolute Eosinophils 0.2 10^3/uL (0-0.7); Absolute Immature Granulocytes 0.1 10^3/uL (0-0.05); Absolute Lymphocytes 0.9 10^3/uL (1.2-3.4); Absolute Monocytes 0.5 10^3/uL (0.1-0.6); Absolute Neutrophils 7.8 10^3/uL (1.4-6.5); Hematocrit 24.1 % (37.0-47.0); Hemoglobin 8.8 g/dL (12.0-16.0); Mean Corp Hgb Conc. 36.5 g/dL (33.0-37.0); Mean Corpuscular Hgb 33.3 pg (27.0-31.0); Mean Corpuscular Volume 91.3 fL (81.0-99.0); Mean Platelet Volume 12.4 fL (7.4-10.4); Nucleated Red Blood Cells % 0 %; Platelet Count 319 10^3/uL (130-400); Red Blood Cell Count 2.64 10^6/uL (4.20-5.40); Red Cell Dist. Width 14.3 % (11.5-14.5); White Blood Cell Count 9.5 10^3/uL (4.8-10.8)
[2024-07-15 07:30] VITALS: BP 164/96
--- NOTE | 2024-07-15 07:40 | W.PN.GS2 ---
Addendum entered and electronically signed by Moises Torres MD 07/15/24 08:57:
Patient seen and examined.
No likely also patient becoming tired out of hospital setting. No nausea or vomiting. No worsening abdominal pain. No flatus or BM. Ambulating. Voiding. Afebrile.
Gen: NAD
NGT: currently clamped for BR
Abd: soft, mild tenderness, ND, non-peritoneal, midline dressing with shadowing
Patient is a 69 yo F p/w adhesive complete SBO
POD#3 s/p laparoscopic to open HUGO, SBR, and biopsy of peritoneal nodules
AVSS
WBC wnl, however prior to surgery leukopenic. BRADEN resolved.
Pathology (-) for ovarian cancer
Overall recovering well. Awaiting return of bowel function. Discussed that given the chronicity of her SBO this may take some time and would likely treat more conservatively. No significant changes from a general surgery perspective.
-- NPO, NGT (OK for sips given dry mouth) - await for return of bowel function before advancing diet.
-- TPN re-ordered, no need for additional IVF
-- Pain control: Tylenol, IV Dilaudid PRN
-- OOB/ambulate
-- DVT: SQH
-- GI: PPI
Original Note:
Today's Communication / Plan
-
Re-order TPN, await diet until bowel function returned
Assessment / Plan
-
Patient is a 69 yo F p/w adhesive complete SBO
POD#3 s/p laparoscopic to open HUGO, SBR, and biopsy of peritoneal nodules
AVSS
WBC wnl, however prior to surgery leukopenic. BRADEN resolved.
Pathology (-) for ovarian cancer
Overall recovering well. Awaiting return of bowel function. Discussed that given the chronicity of her SBO this may take some time and would likely treat more conservatively. No significant changes from a general surgery perspective. Pt appears
motivated to recover quickly.
-- NPO, NGT (OK for sips given dry mouth) - await for return of bowel function before advancing diet.
-- TPN re-ordered, no need for additional IVF
-- Pain control: Tylenol, IV Dilaudid PRN
-- OOB/ambulate
-- DVT: SQH
-- GI: PPI
Subjective Data
-
Date of Service: July 15, 2024
No N/V, not passing gas or BM yet. Frustrated that it is taking so long and wants to recover quickly. Actively participating with PT.
Objective Data
-
Intake and Output
07/14/24 07/15/24 07/16/24
06:59 06:59 06:59
Intake Total 2069 / 2069 690 / 690
Output Total 260 / 260 100 / 100
Balance 1810 / 1810 590 / 590
Intake:
Oral fluids 0 / 0
IV fluids (Total) 300 / 300
IV piggybacks 450 / 450 204 / 204
TPN/PPN 780 / 780 396 / 396
Amount instilled into GI Tube ( 540 / 540 90 / 90
Total)
[place] Sump 540 / 540 90 / 90
Output:
Gastrointestinal tube output ( 260 / 260 100 / 100
Total)
[place] Sump 260 / 260 100 / 100
Other:
Number of approximated SMALL 3
amounts of urine
Number of approximated MODERATE 1 1
amounts of urine
Vital Signs
Temp Pulse Resp BP Pulse Ox
97.7 F 77 16 158/95 98
07/14/24 23:00 07/15/24 05:41 07/14/24 23:00 07/15/24 05:41 07/14/24 23:00
Lab Results
07/15/24 06:11
Calcium 8.6 mg/dl (8.4-10.2) 07/14/24 06:09
Phosphorus 2.3 mg/dl (2.5-4.5) L 07/14/24 06:09
Magnesium 2.1 mg/dl (1.6-2.3) 07/14/24 06:09
Total Bilirubin 0.5 mg/dl (0.2-1.3) 07/11/24 20:09
AST 46 U/L (14-36) H 07/11/24 20:09
ALT 44 U/L (0-35) H 07/11/24 20:09
Alkaline Phosphatase 89 U/L (38-126) 07/11/24 20:09
Total Protein 7.0 g/dl (6.3-8.2) 07/11/24 20:09
Albumin 4.1 g/dl (3.5-5.0) 07/11/24 20:09
Physical Exam
-
NAD
Ab slight distended, tympanic, but no significant tenderness
Incision sights healing well
Patient has a valdes catheter: No
Patient has a central line: Yes
[2024-07-15 07:41] LABS: Blood Urea Nitrogen 22 mg/dl (7-17); Calcium 8.4 mg/dl (8.4-10.2); Carbon Dioxide 27 mmol/L (22-30); Chloride 102 mmol/L (98-107); Estimated Creatinine Clearance 55 ml/min; Glucose 105 mg/dl (70-99); Magnesium 1.7 mg/dl (1.6-2.3); Phosphorus 3.6 mg/dl (2.5-4.5); Sodium 138 mmol/L (135-145); eGFR > 60.00
[2024-07-15] MEDS: NSS (PRESERVATIVE FREE) 10 ML IV (10:07)
[2024-07-15] MEDS: PROTONIX IV 40 MG IV (10:08)
[2024-07-15] MEDS: HEPARIN 5000 UNITS SC ×3 (10:09→23:27)
[2024-07-15] MEDS: LANTUS 0.05 UNITS SC (10:15)
[2024-07-15 12:35] LABS: Glucose - Point of Care 127 mg/dl (70-99)
--- NOTE | 2024-07-15 14:07 | W.PN.HOSP.TC ---
Today's Communication/Plan
-
Continue current care
Assessment / Plan
Assessment / Plan
Gen-AAOx3, NAD
HEENT-NC, AT, anicteric, clear oral mm, NG tube
Neck-supple
CV-reg, no M, +S1/S2
Lungs-clear B/L
Abd-soft, NT, ND
Ext-no edema
Musculoskeletal-no cyanosis, clubbing
Skin-warm and dry
Neuro-grossly non-focal
Psych-calm, cooperative
Recurrent small bowel obstruction -stable after laparoscopic/open lysis of adhesions, 07/12. This is her second bout of SBO.
N.p.o. per general surgery, await return of bowel function. No bowel movements so far, is not passing gas yet.
Continue TPN per surgical service. She has been n.p.o. for at least 8 days as she was not fed during her hospitalization in [place] prior to hospitalization in our facility. Prealbumin 16.9. She is underweight. BMI 17.5.
Mcmillan catheter removed 07/13 morning. Patient able to void.
NG tube remains in place, 100 cc output overnight.
Leukopenia -unclear etiology. Perhaps due to investigational drug treatment. WBC count recovered.
Normocytic anemia -likely chronic. Monitor for now. Hemoglobin is trending down slowly, possibly hemodilution from TPN administration. Doubt bleeding clinically.
TPN induced hyperglycemia -glucoses significantly better, 105 this morning. Continue Lantus 5 units daily.
Hyponatremia -resolved.
Hypophosphatemia - improved.
Lipase elevation -no evidence of pancreatitis clinically. Pancreas on CT scan is atrophic without focal lesions.
BRADEN on CKD 3A -suspect BRADEN related to volume depletion, now improving. BRADEN resolved.
History of metastatic ovarian cancer -2004. [facility]. Due for follow-up in the future. Has chemotherapy port in place.
Oral cancer -2022
Essential hypertension -blood pressure uncontrolled due to n.p.o. status. She usually takes carvedilol 3.125 mg twice daily, lisinopril 10 mg daily, nifedipine 30 mg daily. Currently on IV metoprolol every 6 hours. Unclear how much pain is
contributing to her blood pressure elevation.
Hyperlipidemia -on atorvastatin.
Hypothyroidism -levothyroxine.
Full code
Anticipated Discharge: > 48 hours
Subjective/Interval History
-
Date of Service: July 15, 2024
Patient seen and examined. Overall doing fine, no complaints.
Objective Data
-
Labs:
Laboratory Results
07/15/24
06:11
WBC 9.5
Hgb 8.8 L
Hct 24.1 L
Plt Count 319
Sodium 138
Potassium 4.0
Chloride 102
Carbon Dioxide 27
BUN 22 H
Creatinine 0.8
Glucose 105 H
Calcium 8.4
Vital Signs:
Vital Signs
Temp Pulse Resp BP Pulse Ox
98.1 F 79 16 164/96 96
07/15/24 07:30 07/15/24 10:21 07/15/24 07:30 07/15/24 10:21 07/15/24 07:30
I&O
07/14/24 07/15/24 07/16/24
06:59 06:59 06:59
Intake Total 2069 690 / 690 117 / 117
Output Total 260 / 260 100 / 100
Balance 1810 / 1810 590 / 590 117 / 117
Review of Systems
-
History Source: Patient
All other systems: Reviewed and negative
--- NOTE | 2024-07-15 14:28 | PN.CDI ---
CDI
- -
CDI:
Physician Documentation Request
Admit Date: 07/12/24 03:01
Dear Doctor Tho,
Please review the following and provide your response in the progress notes.
Clinical Indicators:
- 07/12 Post Op Report operative findings 'Significantly strictured and ischemic bowel noted around one of the adhesions'
- 07/12 H&P patient hospitalized in [facility] for past 8 days for SBO
- 'No other complications noted on that hospitalization'
Please clarify which of the following accurately represents the acuity of the ischemic bowel
Acute ischemic bowel
Chronic ischemic bowel
Other (please specify)
Use of terms such as suspected, likely, concern for, or probable (associated with a specific diagnosis that is being evaluated, monitored, or treated as if it exists) are acceptable and can be coded in the inpatient setting, when documented at the
time of discharge.
Thank you,
Lina Kennedy RN
CDI Specialist
Please use your independent medical judgment in providing your response.
[2024-07-15 15:49] VITALS: BP 153/98
[2024-07-15] MEDS: LEVOTHROID 50 MCG IV (17:10)
[2024-07-15 17:48] LABS: Glucose - Point of Care 110 mg/dl (70-99)
[2024-07-15] MEDS: Parenteral Nutrition, Central 760 IV (21:11)
[2024-07-15 23:12] VITALS: BP 140/85
[2024-07-15 23:31] LABS: Glucose - Point of Care 102 mg/dl (70-99)
[2024-07-16 05:41] LABS: Glucose - Point of Care 105 mg/dl (70-99)
[2024-07-16] MEDS: NOVOLOG FLEXPEN-LOW RESISTANCE SC ×3 (05:42→17:46)
[2024-07-16] MEDS: LOPRESSOR 52.5 MG IV (05:59)
[2024-07-16 06:00] VITALS: BMI 17.0
[2024-07-16 07:25] VITALS: BP 170/94
--- NOTE | 2024-07-16 07:45 | W.PN.GS2 ---
Addendum entered and electronically signed by Lalo Barillas MD 07/16/24 10:22:
I saw and examined the patient.
The resident's note was reviewed and I agree with the note.
Comment: About the same, ambulating, denies n/v with ngt to suction, no ROBF reported. Pain controlled. Belly soft, mild distention (improved) aquacel OK. Cont current mgmt, await ROBF. TPN renewed.
Original Note:
Today's Communication / Plan
-
Cont current management
Re-order TPN
Assessment / Plan
-
Patient is a 69 yo F p/w adhesive complete SBO
POD#4 s/p laparoscopic to open HUGO, SBR, and biopsy of peritoneal nodules
AVSS
Labs pending
Overall recovering well. Awaiting return of bowel function. Discussed that it still may take a few days for her bowel to recover considering how many days she was without bowel movement prior to this. No significant change in plan until able to
pass gas.
-- NPO, NGT (OK for sips given dry mouth) - await for return of bowel function before advancing diet.
-- TPN re-ordered, no need for additional IVF
-- Pain control: Tylenol, IV Dilaudid PRN
-- OOB/ambulate
-- DVT: SQH
-- GI: PPI
Subjective Data
-
Date of Service: July 16, 2024
No BM nor passing gas. No N/V. Pt had a dream that she was able to pass gas and was very happy about it, but when she woke up she realized she didn't. Very hopeful that today she will be able to. Stated that her back hurts more than her stomach on
the bed she is on.
Objective Data
-
Intake and Output
07/15/24 07/16/24 07/17/24
06:59 06:59 06:59
Intake Total 690 / 690 1178 / 1178
Output Total 100 / 100 130 / 130
Balance 590 / 590 1048 / 1048
Intake:
IV fluids (Total) 100 /
IV piggybacks / /
TPN/PPN 396 / 396 780 / 780
Amount instilled into GI Tube (
Total)
[place] Sump
Output:
Gastrointestinal tube output ( 100 / 100 130 / 130
Total)
[place] Sump 100 / 100 130 / 130
Other:
Number of approximated SMALL 3
amounts of urine
Number of approximated MODERATE 1 1
amounts of urine
Number of approximated LARGE 3
amounts of urine
Vital Signs
Temp Pulse Resp BP Pulse Ox
98.4 F 101 16 164/108 95
07/15/24 23:12 07/16/24 05:59 07/15/24 23:12 07/16/24 05:59 07/15/24 23:12
Calcium 8.4 mg/dl (8.4-10.2) 07/15/24 06:11
Phosphorus 3.6 mg/dl (2.5-4.5) 07/15/24 06:11
Magnesium 1.7 mg/dl (1.6-2.3) 07/15/24 06:11
Total Bilirubin 0.5 mg/dl (0.2-1.3) 07/11/24 20:09
AST 46 U/L (14-36) H 07/11/24 20:09
ALT 44 U/L (0-35) H 07/11/24 20:09
Alkaline Phosphatase 89 U/L (38-126) 07/11/24 20:09
Total Protein 7.0 g/dl (6.3-8.2) 07/11/24 20:09
Albumin 4.1 g/dl (3.5-5.0) 07/11/24 20:09
Physical Exam
-
NAD
Soft, slight distension, slight tenderness in RLQ and around incision sites.
Patient has a valdes catheter: No
Patient has a central line: Yes
[2024-07-16 08:37] LABS: Hemoglobin 9.4 g/dL (12.0-16.0); Mean Corp Hgb Conc. 36.2 g/dL (33.0-37.0); Mean Corpuscular Hgb 33.2 pg (27.0-31.0); Mean Corpuscular Volume 91.9 fL (81.0-99.0); Mean Platelet Volume 11.8 fL (7.4-10.4); Platelet Count 358 10^3/uL (130-400); Red Blood Cell Count 2.83 10^6/uL (4.20-5.40)
[2024-07-16] MEDS: PROTONIX IV 40 MG IV (09:51)
[2024-07-16] MEDS: LANTUS 0.05 UNITS SC (09:52)
[2024-07-16] MEDS: HEPARIN 5000 UNITS SC ×2 (09:52→18:11)
[2024-07-16] MEDS: NSS (PRESERVATIVE FREE) 10 ML IV (09:52)
[2024-07-16 10:46] LABS: Blood Urea Nitrogen 20 mg/dl (7-17); Calcium 8.2 mg/dl (8.4-10.2); Carbon Dioxide 25 mmol/L (22-30); Chloride 103 mmol/L (98-107); Estimated Creatinine Clearance 54 ml/min; Glucose 94 mg/dl (70-99); Potassium 4.1 mmol/L (3.5-5.1); Sodium 138 mmol/L (135-145); eGFR > 60.00
[2024-07-16 10:59] LABS: Glucose - Point of Care 105 mg/dl (70-99)
--- NOTE | 2024-07-16 10:59 | CM ---
Reviewed the chart notes. TPN continues. CM continues to be available to patient/family and is monitoring medical plan for needs at discharge.
Plan: Discharge plans will depend on the patient's progress.
[2024-07-16] MEDS: LOPRESSOR IV (12:23)
--- NOTE | 2024-07-16 12:30 | W.PN.HOSP.TC ---
Today's Communication/Plan
-
Resume carvedilol, lisinopril
Stop IV metoprolol
Stop Lantus
Assessment / Plan
Assessment / Plan
Gen-AAOx3, NAD
HEENT-NC, AT, anicteric, clear oral mm, NG tube
Neck-supple
CV-reg, no M, +S1/S2
Lungs-clear B/L
Abd-soft, NT, ND
Ext-no edema
Musculoskeletal-no cyanosis, clubbing
Skin-warm and dry
Neuro-grossly non-focal
Psych-calm, cooperative
Recurrent small bowel obstruction -stable after laparoscopic/open lysis of adhesions, 07/12. This is her second bout of SBO.
N.p.o. per general surgery, await return of bowel function. No bowel movements so far, is not passing gas yet.
Continue TPN per surgical service. She has been n.p.o. for at least 8 days as she was not fed during her hospitalization in [place] prior to hospitalization in our facility. Prealbumin 16.9. She is underweight. BMI 17.5.
Mcmillan catheter removed 07/13 morning. Patient able to void.
NG tube remains in place, 130 cc output overnight.
Leukopenia -resolved.
Normocytic anemia -likely chronic. Monitor for now. Hemoglobin stable, 9.4 today.
TPN induced hyperglycemia -glucoses significantly better. Can discontinue Lantus and monitor off insulin.
Hyponatremia -resolved.
Hypophosphatemia - improved.
Lipase elevation -no evidence of pancreatitis clinically. Pancreas on CT scan is atrophic without focal lesions.
BRADEN on CKD 3A -suspect BRADEN related to volume depletion, now improving. BRADEN resolved.
History of metastatic ovarian cancer -2004. [facility]. Due for follow-up in the future. Has chemotherapy port in place.
Oral cancer -2022
Essential hypertension - At home takes carvedilol 3.125 mg twice daily, lisinopril 10 mg daily. Briefly tried nifedipine at home but was discontinued due to hypotension.
Okay to resume carvedilol and lisinopril and clamping NG tube for meds according to surgery. Discussed with nursing. Stop IV metoprolol.
Hyperlipidemia -on atorvastatin.
Hypothyroidism -levothyroxine.
Full code
Anticipated Discharge: > 48 hours
Subjective/Interval History
-
Date of Service: July 16, 2024
Patient seen and examined. No new complaints.
Objective Data
-
Labs:
Laboratory Results
07/16/24
07:44
WBC 9.0
Hgb 9.4 L
Hct 26.0 L
Plt Count 358
Sodium 138
Potassium 4.1
Chloride 103
Carbon Dioxide 25
BUN 20 H
Creatinine 0.8
Glucose 94
Calcium 8.2 L
Vital Signs:
Vital Signs
Temp Pulse Resp BP Pulse Ox
98.2 F 82 15 170/94 95
07/16/24 07:25 07/16/24 07:25 07/16/24 07:25 07/16/24 07:25 07/16/24 07:25
I&O
07/15/24 07/16/24 07/17/24
06:59 06:59 06:59
Intake Total 690 / 690 1178 / 1178 120 / 120
Output Total 100 / 100 130 / 130
Balance 590 / 590 1048 / 1048 120 / 120
Review of Systems
-
History Source: Patient
All other systems: Reviewed and negative
[2024-07-16] MEDS: ZESTRIL 10 MG PO (12:46)
[2024-07-16 15:20] VITALS: BP 163/101
[2024-07-16 16:37] VITALS: BP 164/98
[2024-07-16 17:44] LABS: Glucose - Point of Care 109 mg/dl (70-99)
[2024-07-16] MEDS: LEVOTHROID 50 MCG IV (18:09)
[2024-07-16] MEDS: COREG 3.125 MG PO (20:31)
[2024-07-16] MEDS: Parenteral Nutrition, Central 1030 IV (20:35)
[2024-07-16 20:42] VITALS: BP 163/107
[2024-07-16 23:06] VITALS: BP 136/85
[2024-07-17 00:04] LABS: Glucose - Point of Care 168 mg/dl (70-99)
[2024-07-17] MEDS: NOVOLOG FLEXPEN-LOW RESISTANCE 1 UNITS SC (00:05)
[2024-07-17] MEDS: HEPARIN 5000 UNITS SC ×3 (00:05→18:01)
[2024-07-17 05:43] LABS: Glucose - Point of Care 131 mg/dl (70-99)
[2024-07-17 06:00] VITALS: BMI 16.9
[2024-07-17] MEDS: NOVOLOG FLEXPEN-LOW RESISTANCE SC ×3 (06:26→17:54)
[2024-07-17 07:00] VITALS: BP 142/83
[2024-07-17 08:21] LABS: % Basophils 0.3 % (0-2); % Eosinophils 3.1 % (0-6); % Immature Granulocytes 0.7 % (0-0.5); % Monocytes 13.5 % (1.7-9.3); % Neutrophils 71.4 % (42.2-75.2); Absolute Eosinophils 0.2 10^3/uL (0-0.7); Absolute Immature Granulocytes 0.1 10^3/uL (0-0.05); Absolute Lymphocytes 0.8 10^3/uL (1.2-3.4); Absolute Neutrophils 5.3 10^3/uL (1.4-6.5); Hematocrit 25.2 % (37.0-47.0); Hemoglobin 9.1 g/dL (12.0-16.0); Mean Corp Hgb Conc. 36.1 g/dL (33.0-37.0); Mean Corpuscular Hgb 33.1 pg (27.0-31.0); Mean Corpuscular Volume 91.6 fL (81.0-99.0); Mean Platelet Volume 12.3 fL (7.4-10.4); Nucleated Red Blood Cells % 0 %; Platelet Count 363 10^3/uL (130-400); Red Blood Cell Count 2.75 10^6/uL (4.20-5.40); Red Cell Dist. Width 14.2 % (11.5-14.5); White Blood Cell Count 7.5 10^3/uL (4.8-10.8)
[2024-07-17 08:55] LABS: Blood Urea Nitrogen 23 mg/dl (7-17); Calcium 8.4 mg/dl (8.4-10.2); Carbon Dioxide 25 mmol/L (22-30); Chloride 105 mmol/L (98-107); Estimated Creatinine Clearance 48 ml/min; Glucose 127 mg/dl (70-99); Magnesium 2.1 mg/dl (1.6-2.3); Potassium 4.3 mmol/L (3.5-5.1); Sodium 140 mmol/L (135-145); eGFR > 60.00
--- NOTE | 2024-07-17 09:56 | W.PN.HOSP.TC ---
Today's Communication/Plan
-
Continue current care
Assessment / Plan
Assessment / Plan
Gen-AAOx3, NAD
HEENT-NC, AT, anicteric, clear oral mm, NG tube
Neck-supple
CV-reg, no M, +S1/S2
Lungs-clear B/L
Abd-soft, NT, ND
Ext-no edema
Musculoskeletal-no cyanosis, clubbing
Skin-warm and dry
Neuro-grossly non-focal
Psych-calm, cooperative
Recurrent small bowel obstruction -stable after laparoscopic/open lysis of adhesions, 07/12. This is her second bout of SBO.
N.p.o. per general surgery, await return of bowel function. No bowel movements so far, is not passing gas yet.
Continue TPN per surgical service. She has been n.p.o. for at least 8 days as she was not fed during her hospitalization in [place] prior to hospitalization in our facility. Prealbumin 16.9. She is underweight. BMI 17.5.
Mcmillan catheter removed 07/13 morning. Patient able to void.
NG tube remains in place, 250 cc output overnight.
Leukopenia -resolved.
Normocytic anemia -likely chronic. Monitor for now. Hemoglobin stable.
TPN induced hyperglycemia -glucoses significantly better. Insulin discontinued. Glucose 127 this morning.
Hyponatremia -resolved.
Hypophosphatemia - improved.
Lipase elevation -no evidence of pancreatitis clinically. Pancreas on CT scan is atrophic without focal lesions.
BRADEN on CKD 3A -suspect BRADEN related to volume depletion, now improving. BRADEN resolved.
History of metastatic ovarian cancer -2004. [facility]. Due for follow-up in the future. Has chemotherapy port in place.
Oral cancer -2022
Essential hypertension - At home takes carvedilol 3.125 mg twice daily, lisinopril 10 mg daily. Briefly tried nifedipine at home but was discontinued due to hypotension.
Blood pressure improving on carvedilol and lisinopril.
Hyperlipidemia -on atorvastatin.
Hypothyroidism -levothyroxine.
Full code
Anticipated Discharge: > 48 hours
Subjective/Interval History
-
Date of Service: July 17, 2024
Patient seen and examined. No new complaints.
Objective Data
-
Labs:
Laboratory Results
07/17/24
06:49
WBC 7.5
Hgb 9.1 L
Hct 25.2 L
Plt Count 363
Sodium 140
Potassium 4.3
Chloride 105
Carbon Dioxide 25
BUN 23 H
Creatinine 0.9
Glucose 127 H
Calcium 8.4
Vital Signs:
Vital Signs
Temp Pulse Resp BP Pulse Ox
98.5 F 80 12 142/83 97
07/17/24 07:00 07/17/24 07:00 07/17/24 07:00 07/17/24 07:00 07/17/24 07:00
I&O
07/16/24 07/17/24 07/18/24
06:59 06:59 06:59
Intake Total 1178 / 1178 786 / 786
Output Total 130 / 130 250 / 250
Balance 1048 / 1048 536 / 536
Review of Systems
-
History Source: Patient
All other systems: Reviewed and negative
[2024-07-17] MEDS: ZESTRIL 10 MG PO (10:08)
[2024-07-17] MEDS: COREG 3.125 MG PO ×2 (10:09→21:03)
[2024-07-17] MEDS: NSS (PRESERVATIVE FREE) 10 ML IV (10:20)
[2024-07-17] MEDS: PROTONIX IV 40 MG IV (10:21)
[2024-07-17 11:51] LABS: Glucose - Point of Care 115 mg/dl (70-99)
--- NOTE | 2024-07-17 12:43 | W.PN.GS2 ---
Addendum entered and electronically signed by Lalo Barillas MD 07/17/24 14:24:
I saw and examined the patient.
The Cafeteria Supervisor's note was reviewed and I agree with the note.
Comment: No ROBF yet, otherwise no coplaints. mild ttp and mild distention to lower abd. Ambulating. TPN to cont
Original Note:
Today's Communication / Plan
-
TPN/NPO
Assessment / Plan
-
Patient is a 69 yo F p/w adhesive complete SBO
POD#5 s/p laparoscopic to open HUGO, SBR, and biopsy of peritoneal nodules
AVSS
Labs stable
Overall recovering well. Awaiting return of bowel function. Discussed that it still may take a few days for her bowel to recover considering how many days she was without bowel movement prior to this. No significant change in plan until able to
pass gas.
-- NPO, NGT (OK for sips given dry mouth) - await for return of bowel function before advancing diet.
-- TPN re-ordered, nutrition following
-- Pain control: Tylenol, IV Dilaudid PRN
-- OOB/ambulate
-- DVT ppx: SQH
-- GI ppx: PPI
Subjective Data
-
Date of Service: July 17, 2024
Patient seen and examined at bedside with Dr. Barillas. No passage of flatus yet. Denies n/v. Denies pain.
Objective Data
-
Intake and Output
07/16/24 07/17/24 07/18/24
06:59 06:59 06:59
Intake Total 1178 / 1178 786 / 786
Output Total 130 / 130 250 / 250
Balance 1048 / 1048 536 / 536
Intake:
Oral fluids 120 / 120
IV fluids (Total) 100 / 100
IV piggybacks /
TPN/PPN 780 / 780 516 / 516
Amount instilled into GI Tube ( 90 / 90 150 / 150
Total)
[place] Sump 90 / 90 150 / 150
Output:
Gastrointestinal tube output ( 130 / 130 250 / 250
Total)
[place] Sump 130 / 130 250 / 250
Other:
Number of approximated MODERATE 1 2
amounts of urine
Number of approximated LARGE 3
amounts of urine
Vital Signs
Temp Pulse Resp BP Pulse Ox
98.5 F 80 12 136/85 97
07/17/24 07:00 07/17/24 07:00 07/17/24 07:00 07/17/24 10:09 07/17/24 07:00
Lab Results
07/17/24 06:49
07/17/24 06:49
Calcium 8.4 mg/dl (8.4-10.2) 07/17/24 06:49
Phosphorus 3.6 mg/dl (2.5-4.5) 07/15/24 06:11
Magnesium 2.1 mg/dl (1.6-2.3) 07/17/24 06:49
Total Bilirubin 0.5 mg/dl (0.2-1.3) 07/11/24 20:09
AST 46 U/L (14-36) H 07/11/24 20:09
ALT 44 U/L (0-35) H 07/11/24 20:09
Alkaline Phosphatase 89 U/L (38-126) 07/11/24 20:09
Total Protein 7.0 g/dl (6.3-8.2) 07/11/24 20:09
Albumin 4.1 g/dl (3.5-5.0) 07/11/24 20:09
Physical Exam
-
NAD
Soft, ND, mild lower abd tenderness
Incisions well approximated without erythema
Patient has a valdes catheter: No
Patient has a central line: Yes (right chest wall port)
[2024-07-17 15:00] VITALS: BP 154/96
[2024-07-17 17:38] LABS: Glucose - Point of Care 137 mg/dl (70-99)
--- NOTE | 2024-07-17 17:49 | PTCARENOTE ---
1612: pt notified nurse she passed gas. a lgarger amount of air x1. notified SURVEY PROJECT MANAGER
[2024-07-17] MEDS: LEVOTHROID 50 MCG IV (18:02)
[2024-07-17] MEDS: Parenteral Nutrition, Central 1030 IV (20:50)
[2024-07-17 23:43] LABS: Glucose - Point of Care 175 mg/dl (70-99)
[2024-07-17 23:44] VITALS: BP 124/75
[2024-07-18] MEDS: NOVOLOG FLEXPEN-LOW RESISTANCE 1 UNITS SC (00:45)
[2024-07-18] MEDS: HEPARIN 5000 UNITS SC ×3 (00:46→16:50)
[2024-07-18 06:00] VITALS: BMI 17.1
[2024-07-18 06:13] LABS: Glucose - Point of Care 146 mg/dl (70-99)
[2024-07-18 06:13] LABS: Hematocrit 24.1 % (37.0-47.0); Hemoglobin 8.6 g/dL (12.0-16.0); Mean Corp Hgb Conc. 35.7 g/dL (33.0-37.0); Mean Corpuscular Hgb 33.2 pg (27.0-31.0); Mean Corpuscular Volume 93.1 fL (81.0-99.0); Platelet Count 378 10^3/uL (130-400); Red Blood Cell Count 2.59 10^6/uL (4.20-5.40); Red Cell Dist. Width 14.4 % (11.5-14.5); White Blood Cell Count 6.3 10^3/uL (4.8-10.8)
[2024-07-18] MEDS: NOVOLOG FLEXPEN-LOW RESISTANCE SC ×3 (06:18→17:36)
[2024-07-18 06:40] LABS: Blood Urea Nitrogen 24 mg/dl (7-17); Calcium 8.3 mg/dl (8.4-10.2); Carbon Dioxide 25 mmol/L (22-30); Chloride 106 mmol/L (98-107); Estimated Creatinine Clearance 48 ml/min; Glucose 136 mg/dl (70-99); Potassium 4.7 mmol/L (3.5-5.1); Sodium 139 mmol/L (135-145); eGFR > 60.00
[2024-07-18 07:30] VITALS: BP 139/83
[2024-07-18] MEDS: COREG 3.125 MG PO ×2 (09:50→20:16)
[2024-07-18] MEDS: NSS (PRESERVATIVE FREE) 10 ML IV (09:53)
[2024-07-18] MEDS: PROTONIX IV 40 MG IV (09:53)
[2024-07-18] MEDS: ZESTRIL 10 MG PO (09:55)
--- NOTE | 2024-07-18 10:19 | W.PN.GS2 ---
Addendum entered and electronically signed by Lalo Barillas MD 07/18/24 10:42:
I saw and examined the patient.
The Safety Analyst's note was reviewed and I agree with the note.
Comment: Passing flatus. Minimal ngt output. Exam approp. DC NGT and trial cld. Cont TPN for now
Original Note:
Today's Communication / Plan
-
ngt removed
clears with ensure
Assessment / Plan
-
Patient is a 69 yo F p/w adhesive complete SBO
POD#6 s/p laparoscopic to open HUGO, SBR, and biopsy of peritoneal nodules
AVSS
Labs stable
-- NGT removed at [facility] by Dr. Barillas given flatus
-- Clear liquid diet - advised to go slow. Ensure added.
-- TPN re-ordered, nutrition following. Anticipate continuing TPN until tolerating solid foods.
-- Pain control: Tylenol, IV Dilaudid PRN
-- OOB/ambulate
-- DVT ppx: SQH
-- GI ppx: PPI
Subjective Data
-
Date of Service: July 18, 2024
Patient states she had a flatus a few times since yesterday. Denies nausea or vomiting. Pain is controlled.
Objective Data
-
Intake and Output
07/17/24 07/18/24 07/19/24
06:59 06:59 06:59
Intake Total 786 / 786 606 / 606
Output Total 250 / 250 300 / 300
Balance 536 / 536 306 / 306
Intake:
Oral fluids 120 / 120
TPN/PPN 516 / 516 516 / 516
Amount instilled into GI Tube ( 150 / 150 90 / 90
Total)
[place] Sump 150 / 150 90 / 90
Output:
Gastrointestinal tube output ( 250 / 250 300 / 300
Total)
[place] Sump 250 / 250 300 / 300
Other:
Number of approximated MODERATE 2 1
amounts of urine
Vital Signs
Temp Pulse Resp BP Pulse Ox
98.0 F 84 16 139/83 98
07/18/24 07:30 07/18/24 07:30 07/18/24 07:30 07/18/24 07:30 07/18/24 07:30
Lab Results
07/18/24 04:36
07/18/24 04:36
Calcium 8.3 mg/dl (8.4-10.2) L 07/18/24 04:36
Phosphorus 3.6 mg/dl (2.5-4.5) 07/15/24 06:11
Magnesium 2.1 mg/dl (1.6-2.3) 07/17/24 06:49
Total Bilirubin 0.5 mg/dl (0.2-1.3) 07/11/24 20:09
AST 46 U/L (14-36) H 07/11/24 20:09
ALT 44 U/L (0-35) H 07/11/24 20:09
Alkaline Phosphatase 89 U/L (38-126) 07/11/24 20:09
Total Protein 7.0 g/dl (6.3-8.2) 07/11/24 20:09
Albumin 4.1 g/dl (3.5-5.0) 07/11/24 20:09
Physical Exam
-
NAD
Soft, ND, mild lower abd tenderness
Incisions well approximated without erythema
Patient has a valdes catheter: No
Patient has a central line: Yes
--- NOTE | 2024-07-18 10:30 | W.PN.HOSP.TC ---
Today's Communication/Plan
-
Continue current care
Assessment / Plan
Assessment / Plan
Gen-AAOx3, NAD
HEENT-NC, AT, anicteric, clear oral mm, NG tube
Neck-supple
CV-reg, no M, +S1/S2
Lungs-clear B/L
Abd-soft, NT, ND
Ext-no edema
Musculoskeletal-no cyanosis, clubbing
Skin-warm and dry
Neuro-grossly non-focal
Psych-calm, cooperative
Recurrent small bowel obstruction -stable after laparoscopic/open lysis of adhesions, 07/12. This is her second bout of SBO.
NG tube removed, clear liquid diet started.
Leukopenia -resolved.
Normocytic anemia -likely chronic. Monitor for now. Hemoglobin stable.
TPN induced hyperglycemia -glucoses significantly better. Insulin discontinued. Glucose 136 this morning.
Hyponatremia -resolved.
Hypophosphatemia - improved.
Lipase elevation -no evidence of pancreatitis clinically. Pancreas on CT scan is atrophic without focal lesions.
BRADEN on CKD 3A -suspect BRADEN related to volume depletion, now improving. BRADEN resolved.
History of metastatic ovarian cancer -2004. [facility]. Due for follow-up in the future. Has chemotherapy port in place.
Oral cancer -2022
Essential hypertension - At home takes carvedilol 3.125 mg twice daily, lisinopril 10 mg daily. Briefly tried nifedipine at home but was discontinued due to hypotension.
Blood pressure improving on carvedilol and lisinopril.
Hyperlipidemia -on atorvastatin.
Hypothyroidism -levothyroxine.
Full code
Anticipated Discharge: 24 - 48 hours
Subjective/Interval History
-
Date of Service: July 18, 2024
Patient seen and examined. Did pass gas, no bowel movements. No other complaints.
Objective Data
-
Labs:
Laboratory Results
07/18/24
04:36
WBC 6.3
Hgb 8.6 L
Hct 24.1 L
Plt Count 378
Sodium 139
Potassium 4.7
Chloride 106
Carbon Dioxide 25
BUN 24 H
Creatinine 0.9
Glucose 136 H
Calcium 8.3 L
Vital Signs:
Vital Signs
Temp Pulse Resp BP Pulse Ox
98.0 F 84 16 139/83 98
07/18/24 07:30 07/18/24 07:30 07/18/24 07:30 07/18/24 07:30 07/18/24 07:30
I&O
07/17/24 07/18/24 07/19/24
06:59 06:59 06:59
Intake Total 786 / 786 606 / 606
Output Total 250 / 250 300 / 300
Balance 536 / 536 306 / 306
Review of Systems
-
History Source: Patient
All other systems: Reviewed and negative
[2024-07-18 11:46] LABS: Glucose - Point of Care 125 mg/dl (70-99)
[2024-07-18 15:32] VITALS: BP 162/89
[2024-07-18 17:36] LABS: Glucose - Point of Care 98 mg/dl (70-99)
[2024-07-18] MEDS: LEVOTHROID 50 MCG IV (18:44)
[2024-07-18] MEDS: Parenteral Nutrition, Central 1030 IV (20:55)
[2024-07-18 23:16] VITALS: BP 137/82
[2024-07-18 23:37] LABS: Glucose - Point of Care 133 mg/dl (70-99)
[2024-07-19] MEDS: NOVOLOG FLEXPEN-LOW RESISTANCE SC ×4 (00:33→17:55)
[2024-07-19] MEDS: HEPARIN 5000 UNITS SC ×3 (00:33→15:47)
[2024-07-19 05:03] VITALS: BMI 17.3
[2024-07-19 05:43] LABS: Glucose - Point of Care 125 mg/dl (70-99)
[2024-07-19 07:13] VITALS: BP 118/66
--- NOTE | 2024-07-19 08:06 | W.PN.HOSP.TC ---
Today's Communication/Plan
-
see bold
Assessment / Plan
Assessment / Plan
Gen: NAD, AAOx3.
Eyes: EOMI, PERRLA, no scleral icterus.
Neck: supple.
CV: remains RRR, +S1/S2, no m/r/g.
Resp: remains CTAB, no rales, wheezes, or rhonchi.
Abd: +BS, soft, very minimal TTP, ND
Skin: No rashes.
Neuro: CN 2-12 intact, non-focal.
Psych: Normal mood and affect.
CT A/P 07/12/24:
1. Small bowel obstruction with transition near the midline superior pelvis as above. Small amount of associated free fluid within the pelvis. No signs of abscess formation. No pneumoperitoneum. No pneumatosis identified.
2. Post splenectomy and hysterectomy. Post small bowel resection. Post rectosigmoid resection.
Recurrent SBO:
-s/p laparoscopic to open lysis of adhesions on 07/12/24
-surgery managing
-NGT removed 07/18/24
-stop TPN
-advance to full liquids
Other problems:
Chronic anemia: Hb stable
TPN induced hyperglycemia: SSI/accuchecks, improved
Leukopenia, resolved
Hyponatremia, resolved
Hypophosphatemia, resolved
Lipase elevation, improved, no evidence of pancreatitis clinically. Pancreas on CT scan is atrophic without focal lesions.
BRADEN, resolved. Note, pt does not have CKD
h/o metastatic ovarian cancer in 2004
h/o oral cancer in 2022
Essential hypertension: cont Coreg/lisinopril
Hyperlipidemia: cont statin
Hypothyroidism: cont Levoxyl
FULL/Heparin
Anticipated Discharge: 24 - 48 hours
Subjective/Interval History
-
Date of Service: July 19, 2024
Denies abd pain. + BMs.
Objective Data
-
Labs:
Laboratory Results
07/19/24
06:00
Sodium Pending
Potassium Pending
Chloride Pending
Carbon Dioxide Pending
BUN Pending
Creatinine Pending
Glucose Pending
Calcium Pending
Total Bilirubin Pending
AST Pending
ALT Pending
Alkaline Phosphatase Pending
Vital Signs:
Vital Signs
Temp Pulse Resp BP Pulse Ox
98.1 F 80 18 137/82 95
07/18/24 23:16 07/18/24 23:16 07/18/24 23:16 07/18/24 23:16 07/18/24 23:16
I&O
07/18/24 07/19/24 07/20/24
06:59 06:59 06:59
Intake Total 606 / 606 2 / 2512
Output Total 300 / 300
Balance 306 / 306 2 / 2511
[2024-07-19] MEDS: COREG 3.125 MG PO ×2 (08:27→19:44)
[2024-07-19] MEDS: PROTONIX IV 40 MG IV (08:28)
[2024-07-19] MEDS: NSS (PRESERVATIVE FREE) 10 ML IV (08:28)
[2024-07-19] MEDS: ZESTRIL 10 MG PO (08:29)
--- NOTE | 2024-07-19 10:44 | W.PN.GS2 ---
Today's Communication / Plan
-
Will advance to fulls, stop TPN.
Assessment / Plan
-
Patient is a 69 yo F p/w adhesive complete SBO in the setting of metastatic ovarain CA.
POD#7 s/p laparoscopic to open HUGO, SBR, and biopsy of peritoneal nodules (no tumor on final path)
AVSS
Labs stable
-- Full liquid diet - advised to go slow. Ensure added.
-- TPN to stop
-- Will continue to monitor her midline wound, may need an I&D tomorrow if growing
-- Pain control: Tylenol, IV Dilaudid PRN
-- OOB/ambulate
-- DVT ppx: SQH
-- GI ppx: PPI
Time Spent
Total Time Spent with Patient (in minutes): 15
Subjective Data
-
Date of Service: July 19, 2024
Interval Events:
No acute events overnight. Slept well. Pain Controlled. Denies Nausea/Vomiting, +bowel function. Tolerating diet.
Objective Data
-
Intake and Output
07/18/24 07/19/24 07/20/24
06:59 06:59 06:59
Intake Total 606 / 606 2512 / 2512 540 / 540
Output Total 300 / 300
Balance 306 / 306 2512 / 2512 540 / 540
Intake:
Oral fluids 1480 / 1480 540 / 540
IV fluids (Total) 0 / 0
IV piggybacks 0 / 0
TPN/PPN 516 / 516 1032 / 1032
Amount instilled into GI Tube ( 90 / 90
Total)
[place] Sump 90 / 90
Output:
Gastrointestinal tube output ( 300 / 300
Total)
[place] Sump 300 / 300
Other:
Number of approximated MODERATE 1 2 1
amounts of urine
Number of approximated LARGE 1
amounts of urine
Vital Signs
Temp Pulse Resp BP Pulse Ox
98.5 F 74 16 118/66 95
07/19/24 07:13 07/19/24 07:13 07/19/24 07:13 07/19/24 07:13 07/19/24 07:13
Lab Results
07/18/24 04:36
Calcium 8.3 mg/dl (8.4-10.2) L 07/18/24 04:36
Phosphorus 3.6 mg/dl (2.5-4.5) 07/15/24 06:11
Magnesium 2.1 mg/dl (1.6-2.3) 07/17/24 06:49
Total Bilirubin 0.5 mg/dl (0.2-1.3) 07/11/24 20:09
AST 46 U/L (14-36) H 07/11/24 20:09
ALT 44 U/L (0-35) H 07/11/24 20:09
Alkaline Phosphatase 89 U/L (38-126) 07/11/24 20:09
Total Protein 7.0 g/dl (6.3-8.2) 07/11/24 20:09
Albumin 4.1 g/dl (3.5-5.0) 07/11/24 20:09
Physical Exam
-
GENERAL/NEURO: Awake, Alert, no distress
CHEST: Unlabored breathing on RA
ABDOMEN: Soft, Non-Tender, Non-Distended, dressing taken down today. Incision is clean dry and intact but there is some mild blanching erythema in the midportion of her incision
Patient has a valdes catheter: No
Patient has a central line: No
[2024-07-19 12:06] LABS: Glucose - Point of Care 121 mg/dl (70-99)
--- NOTE | 2024-07-19 12:20 | CM ---
CM following re: discharge planning.
Reviewed pt's chart, met with pt.
Pt is POD#7 s/p laparoscopic to open HUGO, SBR, and biopsy of peritoneal nodules (no tumor on final path), continue supportive care, TPN to stop.
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 Pt has been receiving treatment at [facility] for the past 20 years.
PT and OT evaluations pending.
D/C plan: home with anticipated no needs. to transport at discharge.
CM will follow with discharge plan updates as hospitalization progresses
[2024-07-19 13:12] LABS: ALT (SGPT) 113 U/L (0-35); AST (SGOT) 79 U/L (14-36); Albumin 2.9 g/dl (3.5-5.0); Alkaline Phosphatase 218 U/L (38-126); Blood Urea Nitrogen 26 mg/dl (7-17); Calcium 8.6 mg/dl (8.4-10.2); Carbon Dioxide 25 mmol/L (22-30); Chloride 103 mmol/L (98-107); Estimated Creatinine Clearance 44 ml/min; Glucose 96 mg/dl (70-99); Phosphorus 5.2 mg/dl (2.5-4.5); Potassium 4.7 mmol/L (3.5-5.1); Sodium 136 mmol/L (135-145); Total Bilirubin 0.4 mg/dl (0.2-1.3); Total Protein 5.7 g/dl (6.3-8.2); Triglycerides 112 mg/dl (10-149); eGFR > 60.00
[2024-07-19 15:10] VITALS: BP 140/81
[2024-07-19] MEDS: LEVOTHROID 50 MCG IV (17:01)
[2024-07-19 17:55] LABS: Glucose - Point of Care 105 mg/dl (70-99)
[2024-07-19 23:20] VITALS: BP 120/67
[2024-07-20] MEDS: HEPARIN 5000 UNITS SC ×3 (00:08→16:17)
[2024-07-20] MEDS: NOVOLOG FLEXPEN-LOW RESISTANCE SC (00:09)
[2024-07-20 00:11] LABS: Glucose - Point of Care 88 mg/dl (70-99)
[2024-07-20 05:36] LABS: % Basophils 0.4 % (0-2); % Eosinophils 1.3 % (0-6); % Immature Granulocytes 0.6 % (0-0.5); % Lymphocytes 6.7 % (20.5-51.1); % Monocytes 11.6 % (1.7-9.3); % Neutrophils 79.4 % (42.2-75.2); Absolute Eosinophils 0.2 10^3/uL (0-0.7); Absolute Immature Granulocytes 0.1 10^3/uL (0-0.05); Absolute Lymphocytes 0.8 10^3/uL (1.2-3.4); Absolute Monocytes 1.3 10^3/uL (0.1-0.6); Hematocrit 24.3 % (37.0-47.0); Hemoglobin 8.5 g/dL (12.0-16.0); Mean Corpuscular Hgb 33.1 pg (27.0-31.0); Mean Corpuscular Volume 94.6 fL (81.0-99.0); Nucleated Red Blood Cells % 0 %; Platelet Count 441 10^3/uL (130-400); Red Blood Cell Count 2.57 10^6/uL (4.20-5.40); Red Cell Dist. Width 14.2 % (11.5-14.5); White Blood Cell Count 11.3 10^3/uL (4.8-10.8)
[2024-07-20 06:00] VITALS: BMI 17.0
[2024-07-20 07:15] VITALS: BP 133/75
--- NOTE | 2024-07-20 07:52 | W.PN.GS2 ---
Today's Communication / Plan
-
-- LRD with Ensure
-- Local wound care of midline: daily packing with Iodoform and cover with dry gauze
-- Abx: Bactrim for 5 days for above
Assessment / Plan
-
Patient is a 69 yo F p/w adhesive complete SBO in the setting of metastatic ovarain CA.
POD#8 s/p laparoscopic to open HUGO, SBR, and biopsy of peritoneal nodules (no tumor on final path)
AVSS
Labs with mild leukocytosis related to gas pains overnight versus small superficial SSI
Recovering well overall. Plan to advance diet to low residue diet. Small superficial SSI drained at bedside. Plan for daily packing with gauze wick covered with dry gauze. Plan for 5 days of antibiotics (will treat with Bactrim for MRSA coverage
given lengthy hospital stay)
-- LRD with Ensure
-- Local wound care of midline: daily packing with Iodoform and cover with dry gauze
-- Abx: Bactrim for 5 days for above
-- Pain control: Tylenol, Toradol, IV Dilaudid PRN
-- OOB/ambulate
-- DVT ppx: SQH
-- GI ppx: PPI
Subjective Data
-
Date of Service: July 20, 2024
Overall feels improved. Reports some crampy gas pains yesterday evening which improved with repositioning. Continues to pass flatus and loose nonbloody stools. No nausea or vomiting. Ambulating. Voiding. No fevers.
Objective Data
-
Intake and Output
07/19/24 07/20/24 07/21/24
06:59 06:59 06:59
Intake Total 2511 / 2512 2101
Balance 2512 / 2512 2101
Intake:
Oral fluids 1480 / 1480 1500 / 1500
IV fluids (Total) 0 / 0
IV piggybacks 0 / 0
TPN/PPN 1032 / 1032 602 / 602
Other:
Number of approximated MODERATE 2 2
amounts of urine
Number of approximated LARGE 1
amounts of urine
Vital Signs
Temp Pulse Resp BP Pulse Ox
98.1 F 84 16 120/67 98
07/19/24 23:20 07/19/24 23:20 07/19/24 23:20 07/19/24 23:20 07/19/24 23:20
Lab Results
07/20/24 05:08
07/19/24 12:23
Calcium 8.6 mg/dl (8.4-10.2) 07/19/24 12:23
Phosphorus 5.2 mg/dl (2.5-4.5) H 07/19/24 12:23
Magnesium 2.0 mg/dl (1.6-2.3) 07/19/24 12:23
Total Bilirubin 0.4 mg/dl (0.2-1.3) 07/19/24 12:23
AST 79 U/L (14-36) H 07/19/24 12:23
ALT 113 U/L (0-35) H 07/19/24 12:23
Alkaline Phosphatase 218 U/L (38-126) H 07/19/24 12:23
Total Protein 5.7 g/dl (6.3-8.2) L 07/19/24 12:23
Albumin 2.9 g/dl (3.5-5.0) L 07/19/24 12:23
Physical Exam
-
Gen: NAD
Abd: soft, mild tenderness of mid-incision, blanching erythema, expression of purulence, ND, non-peritoneal
Evacuation of 25 cc of purulence from incision, probed with Q-tip opening skin for 0.5 cm, fascia intact, cavity evacuated, packed with Iodoform gauze, covered with dry gauze and tape
Patient has a valdes catheter: No
Patient has a central line: No
[2024-07-20] MEDS: ZESTRIL 10 MG PO (08:11)
[2024-07-20] MEDS: COREG 3.125 MG PO ×2 (08:11→21:20)
[2024-07-20] MEDS: NSS (PRESERVATIVE FREE) 10 ML IV (08:12)
[2024-07-20] MEDS: PROTONIX IV 40 MG IV (08:13)
[2024-07-20] MEDS: BACTRIM DS 800 MG/160 MG 1 TABLET PO ×2 (08:14→21:20)
--- NOTE | 2024-07-20 08:59 | W.PN.HOSP.TC ---
Today's Communication/Plan
-
oral Abx
Low residue diet
Assessment / Plan
Assessment / Plan
Gen: NAD, AAOx3.
Eyes: EOMI, PERRLA, no scleral icterus.
Neck: supple.
CV: remains RRR, +S1/S2, no m/r/g.
Resp: remains CTAB, no rales, wheezes, or rhonchi.
Abd: +BS, soft, mid line surgical site with mild discharge
Skin: No rashes.
Neuro: CN 2-12 intact, non-focal.
Psych: Normal mood and affect.
CT A/P 07/12/24:
1. Small bowel obstruction with transition near the midline superior pelvis as above. Small amount of associated free fluid within the pelvis. No signs of abscess formation. No pneumoperitoneum. No pneumatosis identified.
2. Post splenectomy and hysterectomy. Post small bowel resection. Post rectosigmoid resection.
Recurrent SBO:
-s/p laparoscopic to open lysis of adhesions on 07/12/24
-surgery managing
-NGT removed 07/18/24
tolerated full liquid, advance to low residue
# Local wound care of midline: daily packing with Iodoform and cover with dry gauze
d/w surgery, c/w wound care
Culture of wound, oral Bactrim
# hyponatremia, resolved
# Moderate protein calorie malnutrition
# Acute kidney injury, resolved
# Acute blood loss anemia with anemia of chronic disease
Hemoglobin stable around 8
#TPN induced hyperglycemia: SSI/accuchecks, improved
#Leukopenia, resolved
# Hypophosphatemia, resolved
#h/o metastatic ovarian cancer in 2004
h/o oral cancer in 2022
#Essential hypertension: cont Coreg/lisinopril
#Hyperlipidemia: cont statin
# Hypothyroidism: cont Levoxyl
FULL/Heparin
Total time spent to see the patient, examine the patient, review data and lab result, discuss treatment plan with patient, nursing staff around 55 minutes
Anticipated Discharge: 24 - 48 hours
Subjective/Interval History
-
Date of Service: July 20, 2024
Objective Data
-
Labs:
Laboratory Results
07/20/24
05:08
WBC 11.3 H
Hgb 8.5 L
Hct 24.3 L
Plt Count 441 H
Vital Signs:
Vital Signs
Temp Pulse Resp BP Pulse Ox
98.0 F 88 16 133/75 98
07/20/24 07:15 07/20/24 07:15 07/20/24 07:15 07/20/24 07:15 07/20/24 07:15
I&O
07/19/24 07/20/24 07/21/24
06:59 06:59 06:59
Intake Total 2511 / 2511
Balance 2511 / 2511
--- NOTE | 2024-07-20 10:54 | CM ---
Reviewed the chart notes and spoke with the patient at the bedside. IMM reviewed. Patient anticipates being discharged to home tomorrow. Patient's spouse to provide transportation. CM consult for VN received. Previous CM sent referral to
[facility], they accepted. CM continues to be available to patient/family and is monitoring medical plan for needs at discharge.
Plan: Discharge to home with [facility] VN services.
[facility]
[2024-07-20 15:12] VITALS: BP 113/66
[2024-07-20] MEDS: LEVOTHROID 50 MCG IV (16:18)
[2024-07-20 23:15] VITALS: BP 128/70
[2024-07-21] MEDS: HEPARIN 5000 UNITS SC ×2 (00:57→08:21)
[2024-07-21 06:00] VITALS: BMI 17.5
[2024-07-21 07:10] VITALS: BP 121/68
[2024-07-21] MEDS: COREG 3.125 MG PO (08:18)
[2024-07-21] MEDS: BACTRIM DS 800 MG/160 MG 1 TABLET PO (08:18)
[2024-07-21] MEDS: NSS (PRESERVATIVE FREE) 10 ML IV (08:21)
[2024-07-21] MEDS: PROTONIX IV 40 MG IV (08:21)
[2024-07-21] MEDS: ZESTRIL 10 MG PO (08:21)
--- NOTE | 2024-07-21 10:11 | CM ---
CM following re: discharge planning.
reviewed pt's chart, met with pt.
According to pt is medically stable to be discharged today. Pt is aware, expressed her agreement and pt stated her and daughter will transport home. IMM reviewed, placed on chart, pt has a copy.
Pt is aware that [facility] will provide after care VN services.
Please fax discharge instructions to [facility] at [phone]
D/C plan: home with [facility] and family support. and daughter to transport.
--- NOTE | 2024-07-21 10:14 | W.PN.HOSP.TC ---
Today's Communication/Plan
-
d/c
Assessment / Plan
Assessment / Plan
pt is a 69 year old female
Recurrent SBO--s/p laparoscopic to open lysis of adhesions on 07/12/24--apprec surgery--NGT removed--tolerating diet
Local wound care of midline--daily packing with Iodoform and cover with dry gauze--as per surgery--Culture of wound, oral Bactrim
hyponatremia, resolved
Moderate protein calorie malnutrition
Acute kidney injury, resolved
Acute blood loss anemia with anemia of chronic disease--Hemoglobin stable around 8
TPN induced hyperglycemia--SSI/accuchecks, improved
Leukopenia, resolved
Hypophosphatemia, resolved
h/o metastatic ovarian cancer in 2004/h/o oral cancer in 2022
Essential hypertension-- cont Coreg/lisinopril
Hyperlipidemia--cont statin
Hypothyroidism--cont Levoxyl
DVT proph
code status--FULL
Anticipated Discharge: Today
Subjective/Interval History
-
Date of Service: July 21, 2024
pt tells me she is cleared for d/c
Objective Data
-
Vital Signs:
max temp for 24 hours
07/20/24
15:12
Temp 98.1 F
Vital Signs
Temp Pulse Resp BP Pulse Ox
98.0 F 78 17 121/68 94
07/21/24 07:10 07/21/24 08:18 07/21/24 07:10 07/21/24 08:18 07/21/24 07:10
I&O
07/20/24 07/21/24 07/22/24
06:59 06:59 06:59
Intake Total 2101
Balance 2101
Review of Systems
-
All other systems: Reviewed and negative
Physical Exam
-
General: Appears Chronically Ill
HEENT: Normocephalic and Atraumatic
Respiratory: Clear to Auscultation; Negative Wheezes or Rhonchi
Cardiac: Regular Rhythm and S1/S2; Negative Murmur
GI: Soft, Nontender, Nondistended and Normal Bowel Sounds
Musculoskeletal: No Clubbing, No Cyanosis and No Edema
Neuro: Awake and Alert
Psych: Calm
--- NOTE | 2024-07-21 12:57 | W.PN.GS2 ---
Today's Communication / Plan
-
Cleared from a surgery perspective for discharge.
Assessment / Plan
-
Patient is a 69 yo F p/w adhesive complete SBO in the setting of metastatic ovarain CA.
POD#9 s/p laparoscopic to open HUGO, SBR, and biopsy of peritoneal nodules (no tumor on final path)
AVSS
Labs with mild leukocytosis related to gas pains overnight versus small superficial SSI
Recovering well overall. Plan to advance diet to low residue diet. Small superficial SSI drained at bedside. Plan for daily packing with gauze wick covered with dry gauze. Plan for 5 days of antibiotics (will treat with Bactrim for MRSA coverage
given lengthy hospital stay)
Okay to DC home per primary
-- LRD with Ensure
-- Local wound care of midline: daily packing with Iodoform and cover with dry gauze
-- Abx: Bactrim for 5 days for above
-- Pain control: Tylenol, Toradol, IV Dilaudid PRN
-- OOB/ambulate
-- DVT ppx: SQH
-- GI ppx: PPI
Time Spent
Total Time Spent with Patient (in minutes): 20
Subjective Data
-
Date of Service: July 21, 2024
Interval Events:
No acute events overnight. Slept well. Pain Controlled. Denies Nausea/Vomiting, +bowel function. Tolerating diet.
Objective Data
-
Intake and Output
07/20/24 07/21/24 07/22/24
06:59 06:59 06:59
Intake Total 2101 780 / 780
Balance 2101 780 / 780
Intake:
Oral fluids 1500 / 1500 1859 780 / 780
TPN/PPN 602 / 602
Other:
Number of approximated MODERATE 2 3 2
amounts of urine
Vital Signs
Temp Pulse Resp BP Pulse Ox
98.0 F 78 17 121/68 94
07/21/24 07:10 07/21/24 08:18 07/21/24 07:10 07/21/24 08:18 07/21/24 07:10
Lab Results
07/20/24 05:08
07/19/24 12:23
Calcium 8.6 mg/dl (8.4-10.2) 07/19/24 12:23
Phosphorus 5.2 mg/dl (2.5-4.5) H 07/19/24 12:23
Magnesium 2.0 mg/dl (1.6-2.3) 07/19/24 12:23
Total Bilirubin 0.4 mg/dl (0.2-1.3) 07/19/24 12:23
AST 79 U/L (14-36) H 07/19/24 12:23
ALT 113 U/L (0-35) H 07/19/24 12:23
Alkaline Phosphatase 218 U/L (38-126) H 07/19/24 12:23
Total Protein 5.7 g/dl (6.3-8.2) L 07/19/24 12:23
Albumin 2.9 g/dl (3.5-5.0) L 07/19/24 12:23
Physical Exam
-
GENERAL/NEURO: Awake, Alert, no distress
CHEST: Unlabored breathing on RA
ABDOMEN: Soft, Non-Tender, Non-Distended, incision clean dry, open in the midline for a superficial subcutaneous surgical site infection. Wound repacked
Patient has a valdes catheter: No
Patient has a central line: No
--- NOTE | 2024-07-21 13:43 | W.DCSUMMARY ---
Discharge Summary
Discharge Data
Date of Admission: 07/12/24
Date of Discharge: 07/21/24
-
Pending Results: No
Hospital Course
Primary care physician : Larissa Reynoso
Principal Discharge diagnosis : Recurrent small bowel obstruction status post laparoscopic with conversion to open for lysis of adhesions, infection of midline wound, acute blood loss anemia along with anemia of chronic disease, TPN induced
hyperglycemia
Chronic Discharge diagnosis : Moderate protein malnutrition, history of metastatic ovarian cancer along with history of oral cancer, essential hypertension, hyperlipidemia, hypothyroidism
Hospital Course : Patient was a 67-year-old female who arrived from [facility] with abdominal pain. While she was in [place] on vacation, she was admitted and diagnosed with small bowel obstruction. She left AGAINST MEDICAL ADVICE to come home
to the [facility] where she wants to continue treatment. She was hospitalized in [place] for 8 days and had a nasogastric tube at that time. She continued to have high amounts of output. She deferred any surgical attempt at that time. She had
mild acute kidney injury and hyponatremia with a sodium of 128. In the emergency department here the patient had bicarbonate of 17 and creatinine of 1.7. She had markedly elevated lipase to 1041. CAT scan of the abdomen pelvis showed dilated
loops of small bowel with multiple transition points to the level of the mid abdomen compatible with a high-grade closed-loop obstruction. Patient was admitted.
Problem #1: Recurrent small bowel obstruction. Patient was seen in consultation by surgery and taken to the operating room on July 12, 2024. She had a laparoscopic surgery which was converted to an open for lysis of adhesions and small bowel
resection. Bowel was noted to be acutely ischemic at that time. Patient had an NG tube and was placed on TPN for nutrition. Eventually the NG tube was removed and the diet was advanced. TPN was stopped. Patient is tolerating oral intake at this
time and has been cleared by surgery for discharge.
Problem #2: Infection of the midline wound. Patient was found to have a small infection of the surgical midline wound. It is recommended that she have daily packing with iodoform and cover with dry gauze. Oral Bactrim was prescribed for 5 more
days to cover MRSA while in the hospital.
Problem #3: Acute blood loss anemia along with anemia of chronic disease. Patient's hemoglobin on admission was 12.6 which dropped to a low of 8.8. This is in combination from surgery, IV fluids for dilution. She did not require blood
transfusions.
Problem #4: TPN induced hyperglycemia. Sugars were followed and treated appropriately. They improved off of TPN.
Problem #5: All other medical issues. These include Moderate protein malnutrition, history of metastatic ovarian cancer along with history of oral cancer, essential hypertension, hyperlipidemia, hypothyroidism. These medical issues were stable
during her hospitalization. Medications were continued as able.
Patient is stable for discharge home at this time. If there are any questions regarding this dictation or her hospital stay, please do not hesitate to call. Our office number is [phone].
Time for discharge 32 minutes.
Important imaging findings :
ABDOMEN/PELVIS CT SCAN IMPRESSION:
1. Small bowel obstruction with transition near the midline superior pelvis as above. Small amount of associated free fluid within the pelvis. No signs of abscess formation. No pneumoperitoneum. No pneumatosis identified.
2. Post splenectomy and hysterectomy. Post small bowel resection. Post rectosigmoid resection.
Procedure findings:
Primary Surgeon: Jayson Nettles MD
Assisting Surgeon: BETTINA Patton
Pre-op Diagnosis: Small bowel obstruction, history of metastatic ovarian disease
Post-op Diagnosis: Same
Procedure Performed:
1. Laparoscopic converted to open lysis of adhesions
2. Small bowel resection
3. Peritoneal nodule biopsy.
Discharge Plan
-
Patient Disposition: Home (Routine Discharge)
Discharge Diagnosis/Procedures: Small bowel obstruction status post laparoscopic converted to laparotomy for lysis of adhesions and small bowel resection
Condition: Good
Diet: Low Fiber and Low Residue
Activity: No strenuous activity
Additional Activity: Do not lift over 15lbs for the next 4-6 weeks
Driving Restrictions: As prior to admission
Bathing Restrictions: OK to Shower
Other Services: VN
Wound Care: Cover your incision with dry gauze dressing if drainage noted, otherwise ok to leave open to air
Activity Restrictions/Additional Instructions:
Instructions following abdominal surgery
Please call [phone] if you have any questions or concerns after your surgery.
Wound Care:
Your incisions are covered with skin glue which will come off on its own in 5-10 days. Part of your midline incision is
Open and draining. The packing here needs to be removed prior to the shower and then replaced afterwards.
It is ok to shower the day after your surgery. Do not scrub the incisions, let soap and water wash over them and pat dry.
� Bruising around your incisions is normal.
� Using ice packs will help minimize this swelling.
� No swimming or soaking incisions for 1 week.
� Your stitches will dissolve and do not need to be removed.
Urinary retention:
If you are unable to urinate 6-8 hours after your surgery, please call [phone] to discuss further management.
Activity:
No heavy lifting more than 15 pounds for the next 3 weeks, then you may gradually lift heavier objects as tolerated by discomfort. Otherwise activity as tolerated by your comfort level.
Pain Management:
Use Tylenol, ibuprofen and ice packs to treat your pain.
� You may take 650 milligrams of Tylenol (Max 3 grams per day) every 6 hours, and 600 mg of ibuprofen also every 6 hours. (you can alternate them every 3 hours)
� You may use an ice pack to your incision as needed.
� If you still have pain not controlled by these measures, take your prescription pain medication if prescribed.
Medications:
You may resume your home medications.
Bowel Medications:
Prescription pain medication can make you constipated. If you take this medication, also take colace 100 mg twice daily (this is over the counter). If this is not sufficient, you may take Miralax (polyethylene glycol) to help move your bowels.
Diet:
After your procedure, there are no dietary restrictions.
Driving restrictions:
No driving if you are taking prescription pain medication or if you think your normal reaction time and attentiveness has been slowed by your surgery.
Things to Look out for:
Worsening Abdominal pain, redness or drainage from incision
Call Doctor for:
Please call if you notice worsening redness or drainage from incision(s) lasting longer than 5 days after your surgery, any foul-smelling drainage from the incision, pain not controlled by pain medications, persistent nausea and vomiting, or for any
fevers greater than 101.3 F. The number for questions/concerns is [phone]
Follow-up:
A follow-up appointment will be scheduled with your surgeon in 3-4 weeks. Please call prior to your appointment if you have any questions or concerns. [phone]
Referrals:
Larissa Reynoso DO [Family Provider] - in less than 1 week
Jayson Nettles MD [Active] - in one to two weeks
Prescriptions:
New
sulfamethoxazole-trimethoprim 800-160 mg Tablet
1 tab PO BID 5 Days Qty: 10 0RF
Continued
Multiple Vitamins
1 tab PO DAILY
carvedilol 6.25 MG tablet
3.125 mg PO BID
nifedipine 30 MG tablet extended release
10 mg PO DAILY
prochlorperazine maleate 10 MG tablet
10 mg PO Q6HPRN PRN (Reason: nausea)
cholecalciferol (vitamin D3) [Vitamin D3] 400 UNIT capsule
400 unit PO DAILY
Calcium
600 mg PO BID
Carboplatin And Taxol
1 dose IV .EVERY 3 WEEKS
Investigational Drug Ipafricept
1 dose IV .EVERY 3 WEEKS
atorvastatin 10 mg Tablet
10 mg PO HS
lisinopril 10 mg Tablet
10 mg PO DAILY
levothyroxine 112 mcg Tablet
112 mcg PO DAILY
magnesium oxide 400 mg magnesium Tablet
400 mg PO DAILY
lactulose [Enulose] 10 GM/15 ML solution
10 gm PO BID Qty: 300 0RF
Discontinued
nifedipine 30 MG tablet extended release 24hr
30 mg PO DAILY Qty: 60 0RF
Rx Instructions:
take one tablet in the morning each day
Discharge Date and Time
Print Language: ISRAELI
[2024-07-21 15:17] VITALS: BP 121/71
[2024-07-21] MEDS: HEPARIN SC (17:03)
--- NOTE | 2024-07-26 14:23 | OR.RPT ---
Addendum entered and electronically signed by Jayson Nettles MD 07/26/24 14:45:
Date of operation should read 07/12/2024.
Original Note:
Operative Report
Operative Report
Patient Name: Daysi Pham
: 1955
Date of Operation: 07/26/2024
Preoperative Diagnosis: SBO, history of metastatic ovarian disease
Postoperative Diagnosis: Same
Procedure(s):
1. Diagnostic Laparoscopy, converted to open lysis of adhesions
2. Small bowel resection
3. Peritoneal nodule biopsy
Surgeon(s):
Dr. Nettles
Corrosion Prevention Metal Sprayer(s):
BETTINA Patton
Anesthesia: General
Estimated Blood Loss: 11 cc
Urine Output: None
Drains/Lines/Implants: None
Specimens:
1. Small Bowel
2. Peritoneal nodule
HPI/Surgical Indications:
This is a 69 year old female with a history of metastatic ovarian cancer and exploratory laparotomy as well as subsequent minimally invasive surgeries who presents with abdominal pain, found to have a small bowel obstruction while traveling in
[place]. She left there and presented to our hospital with ongoing abdominal pain and bowel obstruction confirmed on CT. Risks/Benefits/Alternatives were discussed at length, and the patient agreed to proceed with surgery.
Operative Findings: 2 adhesions to the anterior abdominal wall, questionable metastatic implants. More definitive looking metastatic implants noted in the left upper quadrant abdominal wall taken the specimen #2. Significantly strictured and
ischemic bowel noted around one of the adhesions, likely the transition point. Conversion to open for small bowel resection (specimen #1) and further lysis of adhesions. A [id number]-ffym, functional end-to-end stapled anastomosis was created using 2
firings of an 80 BRUNO purple. The common enterotomy staple line was oversewn with 3-0 silk pops and the mesentery defect was closed. About 1.5 L of enteric contents was milked back retrograde to the stomach and evacuated through her NG.
Procedure Description:
The patient was brought to the Operating Room and placed in the supine position with the arms out. IV antibiotics were infused and Venodyne stockings placed. Following uneventful induction of general endotracheal anesthesia, an orogastric tube
were placed. The abdomen was prepped and draped in the usual sterile fashion. The abdomen was entered using a Ines technique with a 12 mm trochar just below the umbilicus. Pneumoperitoneum to 15 mmHg pressure was obtained without difficulty and
we confirmed that no injury had occurred during our entry. We then placed two 5 mm trocars in the right upper and right lower quadrants. There was multiple adhesions in the upper midline which were lysed using sharp and blunt dissection with
occasional judicious use of cautery. This took around 30 minutes. We also noted some implants in the abdominal wall in the left upper quadrant specimen was taken for pathology. The bowel was markedly distended particularly in the pelvis and
efforts to mobilize this portion of the bowel were unsuccessful so we elected to convert to an open procedure which he did through a small periumbilical midline incision. A medium Oc wound retractor was placed to protect the subcutaneous
tissues and the bowel was extracorporealized and a further 60 minutes to completely mobilize. The main area of the bowel that had been twisted around one of the abdominal wall adhesions that had been freed laparoscopically was identified and noted
to be acutely ischemic. Given its appearance though viable it appeared as if this would stricture if left in place so we elected to do a small bowel resection which we did and a pnsx-lb-ceop, functional end-to-end stapled anastomosis using 2 fires
of an 80 BRUNO purple stapler using a Mahendra technique. The common staple line was oversewn using Lemberted 3-0 silk suture. The mesenteric defect was closed using silk suture. About 1.5 L of enteric contents was milked retrograde back to the
stomach and evacuated through her NG tube which was confirmed to be in a good position by palpation. The bowel was confirmed to be in the appropriate orientation. The abdomen was rinsed out with warm irrigation and suctioned until clear. The
midline Oc wound retractor was removed and the fascia was then closed using wo-0 PDS sutures tied at either end and run to the middle. The midline incision was closed with interrupted 3-0 Vicryl sutures.
Overall, the patient tolerated the procedure well and was taken to the Recovery Room postoperatively in stable condition.
I was the attending physician and performed the procedure with assistance from the JUKE BOX SERVICER above. I was present for all portions of the case.
Jayson Nettles MD
== END 2024-07-21 17:20 | disposition home health service (06) | DRG 329 ==
LOC: 2 SOUTH 03:01
PROVIDERS: Hospitalist; Registered Nurse; Student in an Organized Health Care Education/Training Program; ADMITTING PHYSICIAN Internal Medicine; ATTENDING PHYSICIAN Internal Medicine; EMERGENCY PHYSICIAN Student in an Organized Health Care Education/Training Program; FAMILY PHYSICIAN Family Medicine; OTHER PHYSICIAN Surgery
PROC: 0DNU0ZZ Release Omentum, Open Approach (ICD-10-PCS; 2024-07-12)
PROC: 0DB80ZZ Excision of Small Intestine, Open Approach (ICD-10-PCS; 2024-07-12)
PROC: 0W9G0ZX Drainage of Peritoneal Cavity, Open Approach, Diagnostic (ICD-10-PCS; 2024-07-12)
DX: K56.50 Intestinal adhesions [bands], unspecified as to partial versus complete obstruction (principal); K55.059 Acute (reversible) ischemia of intestine, part and extent unspecified; D62 Acute posthemorrhagic anemia; N17.9 Acute kidney failure, unspecified; Z68.1 Body mass index [BMI] 19.9 or less, adult; E87.1 Hypo-osmolality and hyponatremia; E44.0 Moderate protein-calorie malnutrition; K55.9 Vascular disorder of intestine, unspecified; D63.1 Anemia in chronic kidney disease; I12.9 Hypertensive chronic kidney disease with stage 1 through stage 4 chronic kidney disease, or unspecified chronic kidney disease; E88.A Wasting disease (syndrome) due to underlying condition; N18.31 Chronic kidney disease, stage 3a; Z85.43 Personal history of malignant neoplasm of ovary; Z85.819 Personal history of malignant neoplasm of unspecified site of lip, oral cavity, and pharynx; E78.00 Pure hypercholesterolemia, unspecified; E03.9 Hypothyroidism, unspecified; Z79.890 Hormone replacement therapy; Z79.899 Other long term (current) drug therapy; Z90.49 Acquired absence of other specified parts of digestive tract; Z90.81 Acquired absence of spleen; Z88.0 Allergy status to penicillin; Z90.5 Acquired absence of kidney; R54 Age-related physical debility; Z90.710 Acquired absence of both cervix and uterus
CPT/HCPCS: 88305; 88307; 74177; 80048; 80053; 82805; 82962; 83036; 83605; 83690; 83735; 84100; 84134; 84478; 85025; 85027; 99291; C1776; Q9967

== ENCOUNTER 2024-08-14 14:39 | Inpatient (IN) | payer MEDICARE, BC, SELFPAY ==
[2024-08-14 09:24] VITALS: BP 100/59
[2024-08-14 10:12] VITALS: BMI 17.5
--- NOTE | 2024-08-14 10:28 | ED.GENMED ---
History of Present Illness
General
Chief Complaint: Abdominal Pain
Time Seen by Provider: 08/14/24 09:35
History of Present Illness
History of Present Illness:
69-year-old female with prior history of head and neck cancer and metastatic ovarian cancer with multiple abdominal surgeries presenting for abdominal discomfort, vomiting, constipation. Patient reports that she has not had a bowel movement for the
past 3 days and since yesterday afternoon, has not been passing any gas. She has been vomiting, vomited prior to arrival. Patient with recent hospital admission from 07/12 to 07/15 for acute bowel obstruction requiring resection of the bowel. Denies
significant pain. Notes that she has had a difficult time eating since her recent surgery. Preceding symptoms, did introduce tomatoes, which she feels may have brought on her symptoms. Denies additional acute medical complaints
Past History
Past History
ED Past Medical History: Cancer (Ovarian cancer), HTN and Other (Small bowel obstruction November 2010 and again in December 2010); Negative Asthma or CAD
ED Past Surgical History: Bowel resection (November 2009, lysis of adhesions and small bowel resection December 2010), Gynecological (Total hysterectomy 2004) and Other (Subcutaneous Mediport); Negative Cardiac or Cholecystectomy
Social History
Tobacco: Non-smoker
Alcohol: None
Drug: None
Personal:
Living: with family
Employment: Employed
Family History
Family History: Hypertension
Phy Exam
Physical Exam
Physical Exam:
General: Well-appearing, no clinical signs of dehydration, nontoxic and in no acute distress
HEENT: protecting airway
Neck: appears supple
CV: Normal heart rate, regular rhythm
Resp: No accessory muscle use, no increased work of breathing, lungs clear to auscultation bilaterally
Abd: Soft and non-distended, minimal tenderness to palpation. Positive bowel sounds. Midline incision is well-healing. Small area of opening which is packed. No erythema or active drainage
Extremities: No deformities, no swelling, no erythema, pulses and sensation intact
Neuro: alert, no focal neurologic deficit
: deferred
Rectal: deferred
Psych: Normal affect
Skin: Intact
Course
Orders/Labs/Results
Orders:
Orders
08/14/24 09:53
Urinalysis Reflex To Culture Urgent
Iohexol [Omnipaque] See Protocol PO NOW STA
08/14/24 09:55
CT Abd/Pel (IV only)-DH only Urgent
Comment: unable to tolerate oral contrast
Reason For Exam: constipation, hx bowel obstructions
08/14/24 10:24
Complete Blood Count/With Diff Urgent
Comprehensive Metabolic Panel Urgent
Lipase Urgent
08/14/24 10:29
0.9% Sodium Chloride 1000 ml [Nss] 1,000 ml IV BOLUS
Abnormal Lab Results
08/14/24
10:24
RBC 2.86 L 10^6/uL
(4.20-5.40)
Hgb 9.2 L g/dL
(12.0-16.0)
Hct 26.8 L %
(37.0-47.0)
MCH 32.2 H pg
(27.0-31.0)
Absolute Lymphs (auto) 0.7 L 10^3/uL
(1.2-3.4)
Absolute Monos (auto) 1.0 H 10^3/uL
(0.1-0.6)
Neutrophils % 77.1 H %
(42.2-75.2)
Lymphocytes % 9.0 L %
(20.5-51.1)
Monocytes % 13.2 H %
(1.7-9.3)
Sodium 132 L mmol/L
(135-145)
Potassium 5.3 H mmol/L
(3.5-5.1)
Chloride 97 L mmol/L
(98-107)
BUN 44 H mg/dl
(7-17)
Creatinine 1.5 H mg/dL
(0.6-1.0)
Glucose 124 H mg/dl
(70-99)
Lipase 1300 H* U/L
(23-300)
08/14/24 10:24
08/14/24 10:24
Vital Signs
Initial and Last Documented VS:
Initial Vital Signs
Temp Pulse Resp BP Pulse Ox
98.2 F 100 16 100/59 99
08/14/24 09:24 08/14/24 09:24 08/14/24 09:24 08/14/24 09:24 08/14/24 09:24
Last Documented Vital Signs
Temp Pulse Resp BP Pulse Ox
98.2 F 100 16 100/59 99
08/14/24 09:24 08/14/24 09:24 08/14/24 09:24 08/14/24 09:24 08/14/24 09:24
MDM/Problems Addressed
MDM/Problems Addressed:
69-year-old female with prior history of multiple abdominal surgeries and recent bowel obstruction requiring bowel resection presenting for constipation, abdominal discomfort, vomiting. Vital signs are normal.
On exam patient resting comfortably, no acute distress. On review of EMR, patient recently with high grade bowel obstruction, requiring surgical resection. In the setting of vomiting and constipation with patient's history, concern for an
additional acute bowel obstruction. Will plan for laboratory analysis, CT imaging. Will try oral contrast, however patient was vomiting prior to arrival, unlikely to tolerate. Will start IV fluids.
14:10 -labs show mild hyperkalemia, suspected from dehydration. IV fluids administered. Lipase is also elevated, however has had this elevation in the past. CT is consistent with moderate small bowel dilatation concerning for obstruction versus
ileus without clearly identified transition point. Surgery made aware. Plan for admission
*Critical Care Note
Total Time (30-74mins, 75-104mins- exclusive of procedures): Not Applicable
ED Attending Note
-
Portions of this chart may have been created with voice recognition software.� Occasional wrong word or��sound alike� substitutions may have occurred due to the inherent limitations of voice recognition software.
Discharge Plan
Departure
Prescriptions:
No Action
carvedilol 6.25 MG tablet
6.25 mg PO BID
atorvastatin 10 mg Tablet
10 mg PO HS
lisinopril 10 mg Tablet
10 mg PO DAILY
Patient Comments:
patient says that she is taking this only occasionally because her BP has been very low.
levothyroxine 112 mcg Tablet
112 mcg PO DAILY
polyethylene glycol 3350 [Miralax] 17 gram Powder In Packet
17 g PO DAILYPRN PRN (Reason: constipation)
Referrals:
Larissa Reynoso DO [Family Provider, Family Practice]
Interventions
Interventions:
*Risk Screen - Suicide Last Done: 08/14/24 09:24
*General Assessment Last Done: 08/14/24 10:12
*Neglect/Abuse Screening Last Done: 08/14/24 09:27
*ED- Fall Risk Assessment Last Done: 08/14/24 10:12
*ED COVID-19 Vaccine History Last Done: 08/14/24 10:12
MK-Ylfqgf-Dgkpbvgfpp Assessment Last Done: 08/14/24 10:12
Discharge Date and Time
Print Language: [place]
[2024-08-14] MEDS: NSS 1000 IV ×2 (10:32→16:49)
[2024-08-14 10:37] LABS: % Basophils 0.3 % (0-2); % Eosinophils 0.3 % (0-6); % Immature Granulocytes 0.1 % (0-0.5); % Monocytes 13.2 % (1.7-9.3); % Neutrophils 77.1 % (42.2-75.2); Absolute Lymphocytes 0.7 10^3/uL (1.2-3.4); Absolute Neutrophils 5.7 10^3/uL (1.4-6.5); Hematocrit 26.8 % (37.0-47.0); Hemoglobin 9.2 g/dL (12.0-16.0); Mean Corp Hgb Conc. 34.3 g/dL (33.0-37.0); Mean Corpuscular Hgb 32.2 pg (27.0-31.0); Mean Corpuscular Volume 93.7 fL (81.0-99.0); Mean Platelet Volume 9.6 fL (7.4-10.4); Nucleated Red Blood Cells % 0 %; Platelet Count 361 10^3/uL (130-400); Red Blood Cell Count 2.86 10^6/uL (4.20-5.40); Red Cell Dist. Width 13.8 % (11.5-14.5); White Blood Cell Count 7.4 10^3/uL (4.8-10.8)
[2024-08-14 11:00] LABS: ALT (SGPT) 15 U/L (0-35); AST (SGOT) 19 U/L (14-36); Alkaline Phosphatase 86 U/L (38-126); Blood Urea Nitrogen 44 mg/dl (7-17); Calcium 9.2 mg/dl (8.4-10.2); Carbon Dioxide 27 mmol/L (22-30); Chloride 97 mmol/L (98-107); Estimated Creatinine Clearance 30 ml/min; Glucose 124 mg/dl (70-99); Lipase 1300 U/L (23-300); Potassium 5.3 mmol/L (3.5-5.1); Sodium 132 mmol/L (135-145); Total Bilirubin 0.8 mg/dl (0.2-1.3); Total Protein 7.2 g/dl (6.3-8.2); eGFR 37.72
[2024-08-14 12:44] VITALS: BP 122/67
[2024-08-14 13:00] VITALS: BP 118/66
--- NOTE | 2024-08-14 14:36 | CON.GS ---
Addendum entered and electronically signed by Jayson Nettles MD 08/15/24 09:24:
I saw and examined the patient independently.
The Medication Care Manager's note was reviewed and I agree with the note, assessment and plan except where noted below.
Comment: This is a 69-year-old female with multiple abdominal surgeries as below was taken recently to the OR for lap converted to open lysis of adhesions with resection of necrotic bowel on 07/12/2024. She was doing well postoperatively and was
seen in clinic recently for follow-up and other than a superficial surgical site infection which was drained in the office was doing well. She states roughly 2 days ago she started having new onset abdominal pain and nausea as well as bilious
emesis. She does report some high-fiber meals recently but the volume of which does not totally explain this new obstruction. CT abdomen pelvis without oral contrast demonstrates mild small bowel dilation concerning for an early SBO versus ileus,
her anastomosis looks patent as there is fluid going through it. Transition point appears to be in the pelvis.
NG tube placed successfully at bedside, by the surgical team. Will get an x-ray to confirm placement present.
N.p.o., IV fluids, replete electrolytes as needed
Pain control, nausea control.
General Surgery will continue to follow
I spent 65 minutes in total for the care of this patient today including direct patient care and counseling, reviewing labs, imaging, coordination of care, as well as documentation.
Original Note:
Consultation
-
Date/Time Consultation Requested: 08/14/24 1408
Date/Time Consultation Performed: 08/14/24 1430
Requesting Provider: Arelis
Performing Provider: José Nettles
Medical History
-
Chief Complaint: abd cramping
History of Present Illness:
Ms Pham is a 69 yo female with a h/o oral squamous cell ca s/p resection (follows at [facility]), ovarian cancer with sandra/bso (2004) with chemo with SBR in 2009 d/t mets and SBR in 2010 and last month d/t adhesions who presents with n/v since yesterday
with abdominal cramping. She was most recently admitted from 07/12- 07/21/2024 for an SBO after a prolonged hospitalization for the same in [place] in June. She was taken to the OR for lap converted to open lysis of adhesions with resection of
necrotic bowel on 07/12/24. Peritoneal implant was sent for biopsy at that time which was benign. She did develop a superficial infection along the middle portion of her incision which was treated with Bactrim and local wound care/packing with
resolution. She had good bowel recovery post operatively and diet was eventually able to be advanced and well tolerated although she notes that d/t her oropharyngeal issues she has only been able to tolerate soft foods. She has had been utilizing
smoothies to increase her protein intake. She was tolerating this well at home and had gained back 1 lb of the 12 she lost during her most recent illness up until yesterday when she developed cramping abdominal pain with nausea and vomiting as well
as abdominal distention. Her last BM was 2 days ago and she has been unable to pass flatus x1 day. She does note that 2 days ago just prior to onset of symptoms, she had a rather high fiber meal with beans and some sliced tomatoes. On exam, there is
noted distention but no significant localized tenderness. Incision is healing well with small pinpoint area near the distal to mid portion of the wound without purulence or tunnelling present. She denies active nausea since vomiting early this
morning.
Past Medical History
Past Medical History: Cancer (oral squamous cell s/p resection and ovarian s/p surgery and chemo), HTN, Hypercholesterolemia, Hypothyroidism and Other (SBO)
Past Surgical History: Bowel Resection (SBR in 2009 due to metastatic ovarian cancer, SBR in 2010 and 07/12/2024 for SBO due to adhesions), Gynecological (SANDRA/BSO 2004) and Other (Splenectomy)
Social History
Tobacco: Non-Smoker
Alcohol: None
Family History
Family History: Reviewed & Not Pertinent
Allergies / Home Medications
Allergy/AdvReac Type Severity Reaction Status Date / Time
amoxicillin Allergy Rash Verified 11/01/18 12:44
�Medication �Instructions �Recorded �Confirmed �Type
carvedilol 6.25 mg tablet 6.25 mg PO BID Blood Pressure 09/29/15 08/14/24 History
atorvastatin 10 mg tablet 10 mg PO HS High Cholesterol 07/12/24 08/14/24 History
levothyroxine 112 mcg tablet 112 mcg PO DAILY Thyroid 07/12/24 08/14/24 History
lisinopril 10 mg tablet 10 mg PO DAILY Blood Pressure 07/12/24 08/14/24 History
polyethylene glycol 3350 17 gram 17 g PO DAILYPRN PRN constipation 08/14/24 08/14/24 History
oral powder packet (Miralax)
Review of Systems
-
History Source: Patient and Family
All other systems: Negative unless noted
A 10 point review of systems was completed, and was negative except as per HPI.
Physical Exam
Vital Signs
Temp Pulse Resp BP Pulse Ox
98.2 F 100 16 100/59 99
08/14/24 09:24 08/14/24 09:24 08/14/24 09:24 08/14/24 09:24 08/14/24 09:24
08/13/24 08/14/24 08/15/24
06:59 06:59 06:59
Actual Weight 52.1 kg
Body Mass Index (BMI) 17.5
Lab Results
08/14/24 10:24
08/14/24 10:24
WBC 7.4 10^3/uL (4.8-10.8) 08/14/24 10:24
Hgb 9.2 g/dL (12.0-16.0) L 08/14/24 10:24
Hct 26.8 % (37.0-47.0) L 08/14/24 10:24
Plt Count 361 10^3/uL (130-400) 08/14/24 10:24
Abs Immat Gran (auto) 0.0 10^3/uL (0-0.05) 08/14/24 10:24
Neutrophils % 77.1 % (42.2-75.2) H 08/14/24 10:24
Physical Exam
General: Well Developed and No Apparent Distress; Negative Well Nourished
HEENT: Moist Mucous Membranes
Respiratory: Non Labored Respirations
GI: Soft, Non Tender and Distended (+tympany)
Skin: Other (Midline incision healing well, small pinpoint open area to mid portion of wound; packing removed without purulence noted.)
Neuro: Awake, Alert and AO x 3
Psych: Calm
Data Reviewed
-
CT Scan: Image Personally Visualized and interpreted, Report Reviewed by me, Discussed with Physician, Discussed with Nurse, Discussed with Patient and Discussed with Family
Labs: Labs Reviewed by me, Discussed with Physician, Discussed with Nurse, Discussed with Patient and Discussed with Family
Old Records: Reviewed
Assessment / Plan
-
69 yo female with a h/o oral squamous cell ca s/p resection (follows at [facility]), ovarian cancer with sandra/bso (2004) with chemo with SBR in 2009 d/t mets and SBR in 2010 and last month d/t adhesions who presents with n/v since yesterday with abdominal
cramping. She was most recently admitted from 07/12- 07/21/2024 for an SBO after a prolonged hospitalization for the same in [place] in June. She was taken to the OR for lap converted to open lysis of adhesions with resection of necrotic bowel on
07/12/24 (Dr Nettles). Peritoneal implant was sent for biopsy at that time which was benign. Incision healing well. Was tolerating PO intake without GI symptoms until 1-2 days ago when she developed n/v/cramping with distention after a high fiber
meal.
CT imaging reviewed with ?ileus vs SBO. Suspect related to dietary indiscretion vs adhesive. Prior anastomosis are noted to be patent. Afebrile, mild tachycardia, VSS. Mild BRADEN likely d/t dehydration/hypovolemia with elevated BUN Cr ratio, and
hyperkalemia with hyponatremia. Not passing flatus. Nausea currently resolved after episode of vomiting this am. +distention/tympany.
--Keep NPO with ice chips/meds
--Hold off on NGT for now unless vomiting recurs
--IVF as per primary team
--Analgesics/antiemetics prn
--OK for VTE ppx from surgical standpoint
No plans for emergent surgery at this time, however if surgery is required she would like anesthesia records obtained from her procedure at [facility] in November as intubation was much more comfortable with the particular agents she was given then vs
her last surgery here in June.
--- NOTE | 2024-08-14 14:39 | HPS.HSE ---
Family Physician
-
Family Physician: Larissa Reynoso DO
Chief Complaint
-
vomiting
History of Present Illness
69-year-old female past medical history of recurrent small bowel obstruction, protein calorie malnutrition, chronic anemia, metastatic ovarian cancer, oral cancer, hypertension, hyperlipidemia, hypothyroidism, presenting with abdominal discomfort,
vomiting constipation. She noticed bloating 2 days ago. She has not had a bowel movement for 2 days or passing gas. She has been vomiting. Denies significant pain. Denies fevers or chills.
She was recently admitted from 07/12 to 08/03 for acute bowel obstruction requiring bowel resection. This was complicated by midline wound infection treated with antibiotics. She has been eating regularly since her surgery and having regular bowel
movements prior to the past 3 days.
Drinks alcohol occasionally. Denies smoking.
Medical History
Past Medical History
Past Medical History: Reports Other (recurrent small bowel obstruction, protein calorie malnutrition, chronic anemia, metastatic ovarian cancer, oral cancer, hypertension, hyperlipidemia, hypothyroidism)
Past Surgical History: Reports Other (Bowel resection (November 2009, lysis of adhesions and small bowel resection December 2010), Gynecological (Total hysterectomy 2004) and Other (Subcutaneous Mediport))
Social History
Tobacco: Non-smoker
Alcohol: Occasional
Drug: None
Family History
Family History: Not pertinent
Allergies / Home Medications
Allergies reflects when Allergies were last updated in [employer].
Home Medications with original date entered in [facility]
Allergy/Medication List:
Allergies
Allergy/AdvReac Type Severity Reaction Status Date / Time
amoxicillin Allergy Rash Verified 11/01/18 12:44
Home Medications
carvedilol 6.25 mg tablet 6.25 mg PO BID Blood Pressure 09/29/15
atorvastatin 10 mg tablet 10 mg PO HS High Cholesterol 07/12/24
levothyroxine 112 mcg tablet 112 mcg PO DAILY Thyroid 07/12/24
lisinopril 10 mg tablet 10 mg PO DAILY Blood Pressure 07/12/24
polyethylene glycol 3350 17 gram oral powder packet (Miralax) 17 g PO DAILYPRN PRN constipation 08/14/24
Review of Systems
-
History Source: Patient
A 12 point ROS was completed and negative except as noted: Yes
Constitutional: Reports No Symptoms
EENT: Reports No Symptoms
Respiratory: Reports No Symptoms
Cardiac: Reports No Symptoms
Abdomen/GI: Reports See HPI
: Reports No Symptoms
Musculoskeletal: Reports No Symptoms
Skin: Reports No Symptoms
Neurological: Reports No Symptoms
Endocrine: Reports No Symptoms
Hematologic/Lymphatic: Reports No Symptoms
Psych: Reports No Symptoms
Physical Exam
Vital Signs
Vital Signs
Temp Pulse Resp BP Pulse Ox
98.2 F 100 16 100/59 99
08/14/24 09:24 08/14/24 09:24 08/14/24 09:24 08/14/24 09:24 08/14/24 09:24
Physical Exam
General: Well Developed, Well Nourished and No Apparent Distress
HEENT: NormoCephalic, Moist mucous membranes and Atraumatic
Respiratory: Clear
Cardiac: S1/S2 and Regular Rhythm; No Murmur or Rub
GI: Soft, Non Distended, Normal Bowel Sounds and Tender; No Organomegaly
Rectal: Deferred by Provider
Musculoskeletal: No Clubbing, No Cyanosis and No Edema
Skin: No Rash
Neuro: Nonfocal/grossly intact
Laboratory Results
-
08/14/24 10:24
08/14/24 10:24
Laboratory Results
Total Bilirubin 0.8 mg/dl (0.2-1.3) 08/14/24 10:24
AST 19 U/L (14-36) 08/14/24 10:24
ALT 15 U/L (0-35) 08/14/24 10:24
Alkaline Phosphatase 86 U/L (38-126) 08/14/24 10:24
Lipase 1300 U/L (23-300) H* 08/14/24 10:24
Data Reviewed
-
Lab Data: Labs Reviewed by me
Old Records: Reviewed
Impression/Plan
-
IMPRESSION:
PLAN:
# Recurrent small bowel obstruction versus ileus
# History of small bowel obstruction status post bowel resection in June
-Lipase 1300
- CT abdomen pelvis shows moderate small bowel dilatation concerning for developing obstruction versus ileus
- N.p.o.
- IV fluid
- Zofran, Dilaudid as needed
- General Surgery consulted
# Recent midline wound infection from prior small bowel resection
- Treated with antibiotics, local wound care and improving
# Acute kidney injury
# Hypokalemia
-Creatinine 1.5
- Monitor with IV fluids
- Hold lisinopril
Chronic anemia
- Hemoglobin stable 9.2
Metastatic ovarian cancer
History of oral cancer
Essential hypertension
- Hold lisinopril
- Hold Coreg
Hyperlipidemia
- Hold statin
Hypothyroidism
- Hold levothyroxine
Constipation
- Hold MiraLAX
Full code
DVT prophylaxis�heparin
N.p.o.
[2024-08-14 15:23] VITALS: BP 124/81
[2024-08-14 15:47] VITALS: BP 144/75; BMI 17.2
--- NOTE | 2024-08-14 16:18 | CM ---
CM met with pt and spouse bedside
They reside in a 2SH with 2STE, full flight to 2nd floor
Pt is indep with her ADLs with use of a WW PRN
Pt is [facility] with [facility] for [facility] for incisional care
Pt admitted to [facility] from 07/12-07/21 for small bowel resection
Denies financial insecurities
PCP- Larissa Reynoso
Rx- EVON Coker
Discharge Disposition- anticipate home with [facility]
[2024-08-14] MEDS: HEPARIN 5000 UNITS SC (19:53)
[2024-08-14 23:00] VITALS: BP 128/73
[2024-08-15] MEDS: NSS 1000 IV ×3 (02:28→20:38)
[2024-08-15 05:42] LABS: Urine Albumin 2+ (Neg - Trace); Urine Bilirubin Negative (Negative); Urine Character Clear (Clear); Urine Color Yellow; Urine Glucose Negative (Negative); Urine Ketone Negative (Negative); Urine Leukocyte Negative (Negative); Urine Nitrite Negative (Negative); Urine Occult Blood Negative (Negative); Urine Specific Gravity 1.015 (<1.030); Urine Urobilinogen Negative (Neg - 1+)
[2024-08-15] MEDS: ZOFRAN 4 MG IV (06:30)
[2024-08-15 06:43] LABS: Urine Amorphous Seen; Urine Squamous Cell >30 /LPF (Few)
[2024-08-15 06:44] LABS: Urine Bacteria Many (Negative)
[2024-08-15 07:00] VITALS: BP 144/80
[2024-08-15 07:56] LABS: % Basophils 0.4 % (0-2); % Eosinophils 0.2 % (0-6); % Immature Granulocytes 0.4 % (0-0.5); % Lymphocytes 10.7 % (20.5-51.1); % Monocytes 14.7 % (1.7-9.3); % Neutrophils 73.6 % (42.2-75.2); Absolute Lymphocytes 0.6 10^3/uL (1.2-3.4); Absolute Monocytes 0.8 10^3/uL (0.1-0.6); Absolute Neutrophils 3.8 10^3/uL (1.4-6.5); Hematocrit 24.1 % (37.0-47.0); Hemoglobin 8.4 g/dL (12.0-16.0); Mean Corp Hgb Conc. 34.9 g/dL (33.0-37.0); Mean Corpuscular Hgb 32.8 pg (27.0-31.0); Mean Corpuscular Volume 94.1 fL (81.0-99.0); Mean Platelet Volume 10.1 fL (7.4-10.4); Nucleated Red Blood Cells % 0 %; Platelet Count 352 10^3/uL (130-400); Red Blood Cell Count 2.56 10^6/uL (4.20-5.40); Red Cell Dist. Width 14.1 % (11.5-14.5); White Blood Cell Count 5.2 10^3/uL (4.8-10.8)
[2024-08-15] MEDS: HEPARIN 5000 UNITS SC ×2 (08:02→19:47)
[2024-08-15 08:27] LABS: ALT (SGPT) 11 U/L (0-35); AST (SGOT) 16 U/L (14-36); Albumin 3.2 g/dl (3.5-5.0); Alkaline Phosphatase 78 U/L (38-126); Blood Urea Nitrogen 38 mg/dl (7-17); Calcium 8.4 mg/dl (8.4-10.2); Carbon Dioxide 22 mmol/L (22-30); Chloride 103 mmol/L (98-107); Estimated Creatinine Clearance 36 ml/min; Glucose 97 mg/dl (70-99); Potassium 4.5 mmol/L (3.5-5.1); Sodium 135 mmol/L (135-145); Total Bilirubin 0.6 mg/dl (0.2-1.3); Total Protein 5.9 g/dl (6.3-8.2); eGFR 49.31
[2024-08-15 09:34] LABS: Lipase 683 U/L (23-300)
[2024-08-15] MEDS: NSS (PRESERVATIVE FREE) 10 ML IV (12:30)
[2024-08-15] MEDS: PROTONIX IV 40 MG IV (12:30)
--- NOTE | 2024-08-15 14:17 | W.PN.HOSP.TC ---
Addendum entered and electronically signed by Justin Bloom MD 08/15/24 15:44:
Seen and examined by me independently in collaboration with the medical physics professor.
Lab data and imaging data reviewed.
Addendum as below :
Patient's presents with small bowel obstruction and with ongoing GI symptoms she had NG tube placed yesterday and feeling improved.
Abdomen soft and hypoactive bowel sounds.
Continue with conservative management for small bowel obstruction. General surgery following.
Elevated lipase may be secondary to a bowel obstruction rather than pancreatitis. No evidence of pancreatitis on CT chest either.
Original Note:
Today's Communication/Plan
-
Continue n.p.o.
Optimal pain and nausea management.
NG tube with suction.
Start levothyroxine.
Assessment / Plan
Assessment / Plan
[id number]-[id number]-old female with PMHx significant for oral squamous cell carcinoma s/p resection, recurrent small bowel resections (2004, 2009, 2010), with most recent hospital admission at from 07/12 to 07/21/2024-for necrotic small bowel
resection secondary to adhesions presents to the hospital for constipation cramping abdominal pain nausea and vomiting with no flatus for 2 days-diagnosed to have recurrent small bowel obstruction.
Plan-
Cramping abdominal pain, nausea and emesis-
Recurrent small bowel obstruction versus ileus with a confluence of acute pancreatitis.
NG tube placement in the a.m. today, mild symptomatic relief with NG tube placement.
Patient made n.p.o. with ice chips.
Optimal symptom management for nausea, abdominal pain.
IV hydration at rate of 100 cc.
General surgery on board, following the patient-appreciate inputs.
Acute pancreatitis-
2/3 criteria met-cramping left upper quadrant abdominal pain, elevated lipase.
CT of the abdomen shows no active inflammation.
Continue n.p.o., IV fluids, optimal pain management.
Recent mid line wound infection-
S/p antibiotic course, local wound care following up.
Improving-granulation tissue noted.
BRADEN-
Serum creatinine improving with IV hydration
1.6 >>> 1.2 on 08/15.
Trend serum creatinine.
Hold lisinopril, avoid nephrotoxic agents
Hyperkalemia-
Serum potassium at 5.3 on admission, 4.5 today.
Resolved with hydration.
Normocytic anemia-
Likely secondary to chronic disease, hemoglobin at 8.4
Dropped from 9.2-8.4 likely dilutional.
Continue to trend hemoglobin.
Essential hypertension-
Lisinopril on hold given BRADEN.
Resume Coreg.
Hyperlipidemia-
Hold statin for now.
Hypothyroidism-
IV levothyroxine at 61 mcg.
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
Oral carcinoma
History of ovarian cancer s/p MARK
Recurrent SBO
DVT prophylaxis-
Heparin. (Platelet count-352)
CODE STATUS-
Full code.
Anticipated Discharge: > 48 hours
Subjective/Interval History
-
Date of Service: August 15, 2024
Overnight patient had episodes of nausea cramping left upper quadrant abdominal pain, multiple episodes of emesis-3 episodes of emesis so far. She reports to be evaluated by surgery around 8 AM, and a [place] pump was placed around 8.30am.
Objective Data
-
Labs:
Laboratory Results
08/15/24
07:21
WBC 5.2
Hgb 8.4 L
Hct 24.1 L
Plt Count 352
Sodium 135
Potassium 4.5
Chloride 103
Carbon Dioxide 22
BUN 38 H
Creatinine 1.2 H
Glucose 97
Calcium 8.4
Total Bilirubin 0.6
AST 16
ALT 11
Alkaline Phosphatase 78
Vital Signs:
Vital Signs
Temp Pulse Resp BP Pulse Ox
97.8 F 85 18 144/80 97
08/15/24 07:00 08/15/24 07:00 08/15/24 07:00 08/15/24 07:00 08/15/24 07:00
I&O
08/14/24 08/15/24 08/16/24
06:59 06:59 06:59
Intake Total 1200 / 1200
Balance 1200 / 1200
Review of Systems
-
History Source: Patient
Constitutional: Reports No Appetite, Fatigue and Weakness
Respiratory: Reports No Symptoms
Cardiac: Reports No Symptoms
Abdomen/GI: Reports Abdominal Pain (improving, crampy , LUQ, and LLQ), Nausea and Vomiting (resolved with NG tube placement)
Genitourinary: Reports No Symptoms
Musculoskeletal: Reports No Symptoms
Skin: Reports No Symptoms
Neuro: Reports No Symptoms
Endocrine: Reports No Symptoms
Hematologic / Lymphatic: Reports No Symptoms
Allergy / Immunology: Reports No Symptoms
Physical Exam
-
General: No Apparent Distress and Comfortable (on room air)
HEENT: Moist Mucous Membranes, Anicteric and [place] Conjunctivae
Respiratory: Clear to Auscultation; Negative Wheezes, Rales, Rhonchi or Crackles
Cardiac: Regular Rhythm, S1/S2 and Other (NG tube output - 350mls by 9.30am, dark brown in color); Negative Murmur, Rub or Gallop
GI: Soft, Tender (tenderness in the LUQ,) and Distended (mildly distended in the RLQ & LLQ); Negative Normal Bowel Sounds
Musculoskeletal: No Clubbing, No Cyanosis and No Edema
Neuro: AO x 3, No Motor Deficits and DTR's Intact & Symmetrica
Psych: Calm
Data Reviewed
-
Diagnostic Radiology: Image personally visualized and interpreted, Report Reviewed by me and Discussed with Physician
CT Scan: Image personally visualized and interpreted, Report Reviewed by me and Discussed with Physician
Labs: Labs Reviewed by me, Discussed with Physician and Discussed with Nurse
[2024-08-15 15:00] VITALS: BP 151/80
[2024-08-15 23:55] VITALS: BP 151/84
[2024-08-16] MEDS: NSS 1000 IV ×2 (06:05→16:47)
[2024-08-16 07:00] VITALS: BP 143/90
[2024-08-16] MEDS: PROTONIX IV 40 MG IV (07:40)
[2024-08-16] MEDS: NSS (PRESERVATIVE FREE) 10 ML IV (07:40)
[2024-08-16] MEDS: HEPARIN 5000 UNITS SC ×2 (07:41→19:47)
[2024-08-16 08:10] LABS: Hematocrit 23.6 % (37.0-47.0); Hemoglobin 7.9 g/dL (12.0-16.0); Mean Corp Hgb Conc. 33.5 g/dL (33.0-37.0); Mean Corpuscular Hgb 32.5 pg (27.0-31.0); Mean Corpuscular Volume 97.1 fL (81.0-99.0); Mean Platelet Volume 10.7 fL (7.4-10.4); Platelet Count 346 10^3/uL (130-400); Red Blood Cell Count 2.43 10^6/uL (4.20-5.40); Red Cell Dist. Width 14.2 % (11.5-14.5); White Blood Cell Count 5.3 10^3/uL (4.8-10.8)
--- NOTE | 2024-08-16 08:18 | W.PN.GS2 ---
Today's Communication / Plan
-
SBFT
Assessment / Plan
-
69-year-old female with multiple abdominal surgeries as below was taken recently to the OR for lap converted to open lysis of adhesions with resection of necrotic bowel on 07/12/2024 presenting with obstructive symptoms.
CT abdomen pelvis without oral contrast on admission demonstrates mild small bowel dilation concerning for an early SBO versus ileus, her anastomosis looks patent as there is fluid going through it. Transition point appears to be in the pelvis.
AFVSS
No leukocytosis
Chronic anemia persists
BMP pending
Symptomatic relief with NGT placement, still with distention and not yet passing flatus
--Plan SBFT today
--NPO/NGT
--Analgesics/antiemetics prn
--Continue IVF
--Follow labs/exams
--PPI for GI ppx
--Hep SQ for VTE ppx
Subjective Data
-
Date of Service: August 16, 2024
Patient seen and examined at bedside with Dr. Nettles. Not yet passing flatus. No BM's. Denies n/v. Hearing some gurgling in her abdomen. Pain better today.
Objective Data
-
Intake and Output
08/15/24 08/16/24 08/17/24
06:59 06:59 06:59
Intake Total 1200 / 1200 2420 / 2420
Output Total 900 / 900
Balance 1200 / 1200 1520 / 1520
Intake:
IV fluids (Total) 1200 / 1200 2300 / 2300
Amount instilled into GI Tube ( 120 / 120
Total)
[place] Sump 120 / 120
Output:
Gastrointestinal tube output ( 900 / 900
Total)
[place] Sump 900 / 900
Other:
Number of approximated MODERATE 1 1
amounts of urine
Number of immeasurable emeses? 1
Vital Signs
Temp Pulse Resp BP Pulse Ox
97.8 F 83 18 143/90 96
08/16/24 07:00 08/16/24 07:00 08/16/24 07:00 08/16/24 07:00 08/16/24 07:00
Lab Results
08/16/24 07:37
Calcium 8.4 mg/dl (8.4-10.2) 08/15/24 07:21
Total Bilirubin 0.6 mg/dl (0.2-1.3) 08/15/24 07:21
AST 16 U/L (14-36) 08/15/24 07:21
ALT 11 U/L (0-35) 08/15/24 07:21
Alkaline Phosphatase 78 U/L (38-126) 08/15/24 07:21
Total Protein 5.9 g/dl (6.3-8.2) L 08/15/24 07:21
Albumin 3.2 g/dl (3.5-5.0) L 08/15/24 07:21
Physical Exam
-
NAD
ABD soft, distended, NT
NGT with biliary outputs
Patient has a valdes catheter: No
Patient has a central line: Yes (right chest wall port)
[2024-08-16 09:01] LABS: Blood Urea Nitrogen 25 mg/dl (7-17); Calcium 8.6 mg/dl (8.4-10.2); Carbon Dioxide 20 mmol/L (22-30); Chloride 107 mmol/L (98-107); Estimated Creatinine Clearance 44 ml/min; Glucose 71 mg/dl (70-99); Magnesium 1.7 mg/dl (1.6-2.3); Phosphorus 3.2 mg/dl (2.5-4.5); Potassium 4.2 mmol/L (3.5-5.1); Sodium 137 mmol/L (135-145); eGFR > 60.00
--- NOTE | 2024-08-16 11:55 | CM ---
Patient out of room for testing. CM will continue to follow for discharge planning needs.
Plan; home with no needs vs home with VN; was current with VN prior to admission
--- NOTE | 2024-08-16 12:41 | W.PN.HOSP.TC ---
Addendum entered and electronically signed by Nilesh Butts MD 08/16/24 20:33:
Attending Addendum-
I saw and evaluated the patient. I reviewed the resident�s note and agree with findings and plan as documented in the resident�s note. Sub: seen post SBFT. Patient feels naseaous and has abd pain. Had bilios vomiting episode. No BM no flatus. Full
12 point ROS reviewed and negative except as documented Exam: Vitals reviewed in chart GEN-mild distress heent NG tube in place abd high pitch BS TTP distended LE no edema
Plan:
# Recurrent small bowel obstruction versus ileus with acute pancreatitis
s/p recent bowel obs and resection on 07/12
cont NG tube
cont n.p.o. with ice chips.
IV hydration at rate of 100 cc.
General surgery on board-appreciate input
SBFT-08/16- Dilated proximal to mid small bowel, suspicious for mid to distal small bowel obstruction
#Acute pancreatitis-
CT of the abdomen shows no active inflammation.
Continue n.p.o., IV fluids, optimal pain management.
lipase trending down
#Recent mid line wound infection-
S/p antibiotic course, local wound care following up.
Improving-granulation tissue noted.
# BRADEN-
resolved
avoid nephrotoxic agents
cont iVF
# Severe PCM
- nutrition consult
#Hyperkalemia-
Resolved with hydration.
#Normocytic anemia-
trending down
tx for HB < 7
likely dilutional.
Continue to trend hemoglobin.
#Essential hypertension-
Lisinopril on hold given BRADEN.
cont Coreg
#Hyperlipidemia-
Hold statin for now.
#Hypothyroidism-
IV levothyroxine as NPO
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
oral SCC carcinoma
met ovarian cancer s/p MARK
Recurrent SBO
DVT prophylaxis-
Heparin
CODE STATUS-
Full code.
ACP
Patient consented to discuss, was alone, time spent explanation of advance directives, changes in health status, patient�s health care wishes if the patient becomes unable to make health decisions, goals of care, code status, and prognosis, 'if i
have a chance then go for it. do it all'- 16 minutes
Time spent coordinating care, review of plan of care with resident, personally reviewed previous records in EMR, med rec, labs, radiology, d/w nursing, family total time documented is exclusive of any additional time listed that was spent in advance
care planning discussion -� 52 minutes
Original Note:
Today's Communication/Plan
-
Small bowel follow-through
Continue n.p.o.
Continue NG tube suction
Assessment / Plan
Assessment / Plan
Enjozwlwpp-40-cuhk-old female with PMHx significant for oral squamous cell carcinoma s/p resection, recurrent small bowel resections (2004, 2009, 2010), with most recent hospital admission at from 07/12 to 07/21/2024-for necrotic small bowel
resection secondary to adhesions presents to the hospital for constipation cramping abdominal pain nausea and vomiting with no flatus for 2 days-diagnosed to have recurrent small bowel obstruction.
Plan
#Small bowel obstruction
NG tube placement
Patient made n.p.o. with ice chips.
Adequate pain control
Antiemetics as needed
IVF at rate of 100 cc.
General surgery on board
Small bowel follow-through today�Dilated proximal to mid small bowel, suspicious for mid to distal small bowel obstruction, delayed imaging to be obtained.
#Acute pancreatitis
2/3 criteria met-cramping left upper quadrant abdominal pain, elevated lipase.
CT of the abdomen shows no active inflammation.
Lipase 1300 >>>683
Continue n.p.o., IV fluids, optimal pain management.
#BRADEN
Serum creatinine improving with IV hydration
1.6 >>> 1.1
Trend serum creatinine.
Hold lisinopril, avoid nephrotoxic agents
#Hyperkalemia
Resolved with hydration.
Monitor BMP
#Normocytic anemia
Likely secondary to chronic disease, hemoglobin at 8.4 >>7.9
Continue to trend hemoglobin.
#Essential hypertension
Lisinopril on hold given BRADEN.
Resume Coreg.
#Hyperlipidemia-
Hold statin for now.
Hypothyroidism-
IV levothyroxine at 61 mcg.
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
Oral carcinoma
History of ovarian cancer s/p MARK
Recurrent SBO
DVT prophylaxis-
Heparin.
CODE STATUS-
Full code.
Anticipated Discharge: 24 - 48 hours
Subjective/Interval History
-
Date of Service: August 16, 2024
Patient reports having nausea, abdominal pain.
Objective Data
-
Labs:
Laboratory Results
08/16/24
07:37
WBC 5.3
Hgb 7.9 L
Hct 23.6 L
Plt Count 346
Sodium 137
Potassium 4.2
Chloride 107
Carbon Dioxide 20 L
BUN 25 H
Creatinine 1.0
Glucose 71
Calcium 8.6
Vital Signs:
Vital Signs
Temp Pulse Resp BP Pulse Ox
97.8 F 83 18 143/90 96
08/16/24 07:00 08/16/24 07:00 08/16/24 07:00 08/16/24 07:00 08/16/24 07:00
I&O
08/15/24 08/16/24 08/17/24
06:59 06:59 06:59
Intake Total 1200 / 1200 2420 / 2420
Output Total 900 / 900
Balance 1200 / 1200 1520 / 1520
Review of Systems
-
All other systems: Reviewed and negative (Except as mentioned above)
Physical Exam
-
General: No Apparent Distress
HEENT: Normocephalic and Atraumatic
Respiratory: Clear to Auscultation
Cardiac: Regular Rhythm and S1/S2
GI: Soft, Distended and Other (NG tube in place to wall suction)
Skin: Warm and Dry
Neuro: Awake, Alert, Oriented, AO x 3 and Nonfocal/Grossly Intact
Psych: Calm
[2024-08-16] MEDS: ZOFRAN 4 MG IV (13:18)
[2024-08-16 14:48] VITALS: BMI 17.2
[2024-08-16 15:00] VITALS: BP 161/90
--- NOTE | 2024-08-16 20:53 | PTCARENOTE ---
Updated CXR performed, confirmed with covering provider Chrissie MAYERS is in stomach, ok to use per covering provider.
[2024-08-16] MEDS: COREG TUBE (20:54)
[2024-08-16 23:12] VITALS: BP 146/92
[2024-08-17] MEDS: NSS 1000 IV ×3 (03:13→23:23)
[2024-08-17 07:57] VITALS: BP 161/89
[2024-08-17 08:04] LABS: % Basophils 0.5 % (0-2); % Eosinophils 0.7 % (0-6); % Immature Granulocytes 0.3 % (0-0.5); % Lymphocytes 18.7 % (20.5-51.1); % Monocytes 15.1 % (1.7-9.3); % Neutrophils 64.7 % (42.2-75.2); Absolute Lymphocytes 1.1 10^3/uL (1.2-3.4); Absolute Monocytes 0.9 10^3/uL (0.1-0.6); Absolute Neutrophils 3.7 10^3/uL (1.4-6.5); Hematocrit 22.5 % (37.0-47.0); Hemoglobin 7.7 g/dL (12.0-16.0); Mean Corp Hgb Conc. 34.2 g/dL (33.0-37.0); Mean Corpuscular Hgb 32.4 pg (27.0-31.0); Mean Corpuscular Volume 94.5 fL (81.0-99.0); Mean Platelet Volume 11.3 fL (7.4-10.4); Nucleated Red Blood Cells % 0 %; Platelet Count 331 10^3/uL (130-400); Red Blood Cell Count 2.38 10^6/uL (4.20-5.40); White Blood Cell Count 5.8 10^3/uL (4.8-10.8)
[2024-08-17 08:34] LABS: CA 125 79.1 U/mL (0-35)
[2024-08-17] MEDS: NSS (PRESERVATIVE FREE) 10 ML IV (08:55)
[2024-08-17] MEDS: PROTONIX IV 40 MG IV (08:55)
[2024-08-17] MEDS: COREG 6.25 MG TUBE ×2 (08:55→19:37)
[2024-08-17] MEDS: ZESTRIL TUBE (08:55)
[2024-08-17] MEDS: HEPARIN 5000 UNITS SC ×2 (08:55→19:37)
[2024-08-17 09:18] LABS: ALT (SGPT) < 10 U/L (0-35); AST (SGOT) 16 U/L (14-36); Albumin 3.3 g/dl (3.5-5.0); Alkaline Phosphatase 74 U/L (38-126); Blood Urea Nitrogen 22 mg/dl (7-17); Calcium 8.8 mg/dl (8.4-10.2); Carbon Dioxide 19 mmol/L (22-30); Chloride 110 mmol/L (98-107); Estimated Creatinine Clearance 40 ml/min; Glucose 78 mg/dl (70-99); Potassium 3.9 mmol/L (3.5-5.1); Sodium 142 mmol/L (135-145); Total Bilirubin 0.5 mg/dl (0.2-1.3); Total Protein 5.9 g/dl (6.3-8.2); eGFR 54.73
--- NOTE | 2024-08-17 10:51 | W.PN.GS2 ---
Today's Communication / Plan
-
--NPO/NGT
--Repeat X-ray in AM
Assessment / Plan
-
Patient is a 69 yo F with multiple abdominal surgeries as below was taken recently to the OR for lap converted to open lysis of adhesions with resection of necrotic bowel on 07/12/2024 p/w obstructive symptoms.
CT abdomen pelvis without oral contrast (08/14): mild small bowel dilation concerning for an early SBO versus ileus, her anastomosis looks patent as there is fluid going through it. Transition point appears to be in the pelvis.
SBFT (08/16): continued SB dilation, no air fluid levels, no contrast into colon
X-ray Abd (08/17): continued SB dilation, no air fluid levels, no contrast into colon, no air into descending colon or rectum
AFVSS
No leukocytosis
Chronic anemia persists
BMP with slight bump in Cr
Elevated Ca125
Issues with SBO a little over 1 month out following laparoscopic converted to open HUGO. SBFT x-ray confirmed persistent obstruction. No passage of flatus or BM. Discussed options of continued medical management versus surgical management. Pros
and cons were reviewed. Continue with conservative measures for now - will review case with Dr. Nettles.
--NPO/NGT
--Analgesics/antiemetics prn
--Continue IVF
--Follow labs/exams
--PPI for GI ppx
--Hep SQ for VTE ppx
Subjective Data
-
Date of Service: August 17, 2024
Issues with nausea and vomiting yesterday following SBFT prompting NGT back to suction. Denies any flatus or BM. Abdominal discomfort/distention stable. Reports possibly being dehydrated as well as chest pending to reintroduce solid foods
including some fiber prior to the onset of her symptoms.
Objective Data
-
Intake and Output
08/16/24 08/17/24 08/18/24
06:59 06:59 06:59
Intake Total 2420 / 2420 630 / 630
Output Total 900 / 900 950 / 1950 1000 / 1000
Balance 1520 / 1520 -320 / -1320 -1000 / -1000
Intake:
Oral fluids 0 / 0
Amount of oral supplement(s) 0 / 0
consumed
IV fluids (Total) 2300 / 2300 600 / 600
IV piggybacks 0 / 0
Amount instilled into GI Tube ( 120 / 120 30 / 30
Total)
[place] Sump 120 / 120 30 / 30
Output:
Gastrointestinal tube output ( 900 / 900 950 / 1950 1000 / 1000
Total)
[place] Sump 900 / 900 950 / 1950 1000 / 1000
Other:
Number of approximated MODERATE 1 4
amounts of urine
Vital Signs
Temp Pulse Resp BP Pulse Ox
97.6 F 71 18 161/89 98
08/17/24 07:57 08/17/24 07:57 08/17/24 07:57 08/17/24 07:57 08/17/24 07:57
Lab Results
08/17/24 06:46
08/17/24 06:46
Calcium 8.8 mg/dl (8.4-10.2) 08/17/24 06:46
Phosphorus 3.2 mg/dl (2.5-4.5) 08/16/24 07:37
Magnesium 1.7 mg/dl (1.6-2.3) 08/16/24 07:37
Total Bilirubin 0.5 mg/dl (0.2-1.3) 08/17/24 06:46
AST 16 U/L (14-36) 08/17/24 06:46
ALT < 10 U/L (0-35) 08/17/24 06:46
Alkaline Phosphatase 74 U/L (38-126) 08/17/24 06:46
Total Protein 5.9 g/dl (6.3-8.2) L 08/17/24 06:46
Albumin 3.3 g/dl (3.5-5.0) L 08/17/24 06:46
Physical Exam
-
Gen: NAD
HEENT: NGT with bilious outputs
Abd: soft, mild tenderness, distended, tymapnitic, non-peritoneal, prior incision well healed
Patient has a valdes catheter: No
Patient has a central line: No
[2024-08-17 14:58] VITALS: BP 164/84
[2024-08-17] MEDS: APRESOLINE 5 MG IV (15:16)
[2024-08-17 17:15] VITALS: BP 165/89
[2024-08-17] MEDS: LEVOTHROID 84 MCG IV (17:18)
--- NOTE | 2024-08-17 18:49 | W.PN.HOSP.TC ---
Addendum entered and electronically signed by Nilesh Butts MD 08/17/24 20:41:
Attending Addendum-
I saw and evaluated the patient. I reviewed the resident�s note and agree with findings and plan as documented in the resident�s note. Sub: Patient feels improved with NG tube. No BM no flatus. Wants to try clears. 'why cant i drink and just have it
sucked out by the NG' No fevers chills NV. Still with abd discomfort. Full 12 point ROS reviewed and negative except as documented Exam: Vitals reviewed in chart GEN-NAD heent NG tube in place draining bile non bloody, abd TTP distended high pitch
BS LE no edema
Plan:
# Recurrent small bowel obstruction with acute pancreatitis
-s/p recent bowel obs and resection on 07/12
-cont NG tube
-cont n.p.o. with ice chips.
-IV hydration-
-General surgery on board-appreciate input
-SBFT-08/16- Dilated proximal to mid small bowel, suspicious for mid to distal small bowel obstruction
-repeat x ray 08/17 personally reviewed-multiple distended loops of bowel with a/f levels - consistent with SBO
-conservative management for now if fails will require surgery
#Acute pancreatitis
-CT of the abdomen shows no active inflammation.
-Continue n.p.o., IV fluids, optimal pain management.
-lipase trending down
#Recent mid line wound infection-
-S/p antibiotic course, local wound care
-Improving-granulation tissue noted
# BRADEN-
resolved
avoid nephrotoxic agents
cont iVF
# Severe PCM
- nutrition consult
#Hyperkalemia-
Resolved with hydration.
#Normocytic anemia-
trending down
tx for HB < 7
likely dilutional.
Continue to trend hemoglobin.
#Essential hypertension-
-Lisinopril on hold- ok to restart
-cont Coreg via tube
#Hyperlipidemia-
-Hold statin for now.
#Hypothyroidism-
-IV levothyroxine as NPO
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
oral SCC carcinoma
met ovarian cancer s/p MARK- elevated ca 125 - will need f/u as OP d/w patient
Recurrent SBO
DVT prophylaxis-
Heparin
CODE STATUS-
Full code.
Time spent coordinating care, review of plan of care with resident, personally reviewed records in EMR, med rec, consults, notes, labs, radiology, d/w nursing � 52 mins
Original Note:
Today's Communication/Plan
-
Continue NGT/NPO.
Assessment / Plan
Assessment / Plan
Yhhxcindvj-44-mlal-old female with PMHx significant for oral squamous cell carcinoma s/p resection, recurrent small bowel resections (2004, 2009, 2010), with most recent hospital admission at from 07/12 to 07/21/2024-for necrotic small bowel
resection secondary to adhesions presents to the hospital for constipation cramping abdominal pain nausea and vomiting with no flatus for 2 days-diagnosed to have recurrent small bowel obstruction.
Plan
#Small bowel obstruction
NG tube placement
Adequate pain control
Antiemetics as needed
Small bowel follow-through �Dilated proximal to mid small bowel, suspicious for mid to distal small bowel obstruction, no contrast into colon
X-ray Abd - continued SB dilation, no air fluid levels, no contrast into colon, no air into descending colon or rectum
General surgery on board
Continue with conservative measures for now
NPO/NGT
Analgesics/antiemetics prn
Continue IVF
PPI for GI ppx
#Acute pancreatitis
2/3 criteria met-cramping left upper quadrant abdominal pain, elevated lipase.
CT of the abdomen shows no active inflammation.
Lipase 1300 >>>683
Continue n.p.o., IV fluids, optimal pain management.
#Protein calorie malnutrition
Nutrition consult
#BRADEN
Serum creatinine improving with IV hydration
1.6 >>> 1.1
Trend serum creatinine.
Hold lisinopril, avoid nephrotoxic agents
#Hyperkalemia
Resolved with hydration.
Monitor BMP
#Normocytic anemia
Likely secondary to chronic disease, hemoglobin at 8.4 >>7.9 >>7.7
Continue to trend hemoglobin.
#Essential hypertension
Lisinopril on hold given BRADEN.
Resume Coreg.
#Hyperlipidemia-
Hold statin for now.
Hypothyroidism-
IV levothyroxine at 61 mcg.
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
Oral carcinoma
History of ovarian cancer s/p MARK
Recurrent SBO
DVT prophylaxis-
Heparin.
CODE STATUS-
Full code.
Anticipated Discharge: 24 - 48 hours
Subjective/Interval History
-
Date of Service: August 17, 2024
Patient had episodes of vomiting yesterday. No flatus/bowel movement.
Objective Data
-
Labs:
Laboratory Results
08/17/24
06:46
WBC 5.8
Hgb 7.7 L
Hct 22.5 L
Plt Count 331
Sodium 142
Potassium 3.9
Chloride 110 H
Carbon Dioxide 19 L
BUN 22 H
Creatinine 1.1 H
Glucose 78
Calcium 8.8
Total Bilirubin 0.5
AST 16
ALT < 10
Alkaline Phosphatase 74
Vital Signs:
Vital Signs
Temp Pulse Resp BP Pulse Ox
97.2 F 68 18 165/89 100
08/17/24 14:58 08/17/24 14:58 08/17/24 14:58 08/17/24 17:15 08/17/24 14:58
I&O
08/16/24 08/17/24 08/18/24
06:59 06:59 06:59
Intake Total 2420 / 2420 630 / 630 1430 / 1430
Output Total 900 / 900 950 / 1950 1600 / 1600
Balance 1520 / 1520 -320 / -1320 -170 / -170
Physical Exam
-
HEENT: Normocephalic and Atraumatic
Respiratory: Clear to Auscultation
Cardiac: Regular Rhythm and S1/S2
GI: Tender, Distended and Other (NG tube with bilious output)
Skin: Warm and Dry
Neuro: Awake, Alert, Oriented and AO x 3
Psych: Calm
[2024-08-17 23:26] VITALS: BP 155/85
[2024-08-18 07:21] LABS: % Basophils 0.6 % (0-2); % Eosinophils 1.4 % (0-6); % Immature Granulocytes 0.2 % (0-0.5); % Lymphocytes 21.4 % (20.5-51.1); % Monocytes 11.6 % (1.7-9.3); % Neutrophils 64.8 % (42.2-75.2); Absolute Eosinophils 0.1 10^3/uL (0-0.7); Absolute Lymphocytes 1.1 10^3/uL (1.2-3.4); Absolute Monocytes 0.6 10^3/uL (0.1-0.6); Absolute Neutrophils 3.2 10^3/uL (1.4-6.5); Hemoglobin 8.1 g/dL (12.0-16.0); Mean Corp Hgb Conc. 33.8 g/dL (33.0-37.0); Mean Corpuscular Hgb 31.9 pg (27.0-31.0); Mean Corpuscular Volume 94.5 fL (81.0-99.0); Mean Platelet Volume 10.9 fL (7.4-10.4); Nucleated Red Blood Cells % 0 %; Platelet Count 363 10^3/uL (130-400); Red Blood Cell Count 2.54 10^6/uL (4.20-5.40)
[2024-08-18 07:30] VITALS: BP 172/93
--- NOTE | 2024-08-18 07:40 | W.PN.HOSP.TC ---
Addendum entered and electronically signed by Nilesh Butts MD 08/18/24 19:59:
Attending Addendum-
I saw and evaluated the patient. I reviewed the resident�s note and agree with findings and plan as documented in the resident�s note. Sub: Patient feels weak. No BM no flatus. No fevers chills NV. Still with abd discomfort. Full 12 point ROS
reviewed and negative except as documented Exam: Vitals reviewed in chart GEN-NAD heent NG tube in place draining bile non bloody, abd TTP distended high pitch BS LE no edema
Plan:
# Recurrent small bowel obstruction with acute pancreatitis
-s/p recent bowel obs and resection on 07/12
-cont NG tube
-cont n.p.o. with ice chips.
-IV hydration-
-General surgery on board-appreciate input
-SBFT-08/16- Dilated proximal to mid small bowel, suspicious for mid to distal small bowel obstruction
-repeat x ray 08/17 personally reviewed-multiple distended loops of bowel with a/f levels - consistent with SBO
- repeat abd xr 08/18- appears improved but still obstipated
- start TPN
- cont conservative management for now, high risk for surgery
#Acute pancreatitis
-resolved
-Continue n.p.o., IV fluids, optimal pain management
-lipase trended down
# ? Colonic Mass
- c/s colorectal surgery for eval
#Recent mid line wound infection-
-S/p antibiotic course, local wound care
-Improving-granulation tissue noted
# BRADEN-
resolved
avoid nephrotoxic agents
cont iVF
# Severe PCM
- nutrition consult
- start TPN
#Normocytic anemia-
stable
tx for HB < 7
Continue to trend
#Essential hypertension-
- cont Lisinopril and Coreg via tube
#Hyperlipidemia-
-Hold statin for now.
#Hypothyroidism-
-IV levothyroxine as NPO
-TSH WNL
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
oral SCC carcinoma
met ovarian cancer s/p MARK- elevated ca 125 - will need f/u as OP d/w patient
Recurrent SBO
DVT prophylaxis-
Heparin
CODE STATUS-
Full code.
Time spent coordinating care, review of plan of care with resident, personally reviewed records in EMR, med rec, consults, notes, labs, radiology, d/w nursing and surgery � 51 mins
Original Note:
Today's Communication/Plan
-
Start TPN
Assessment / Plan
Assessment / Plan
Urujhswrgy-21-qowm-old female with PMHx significant for oral squamous cell carcinoma s/p resection, recurrent small bowel resections (2004, 2009, 2010), with most recent hospital admission at from 07/12 to 07/21/2024-for necrotic small bowel
resection secondary to adhesions presents to the hospital for constipation cramping abdominal pain nausea and vomiting with no flatus for 2 days-diagnosed to have recurrent small bowel obstruction.
Plan
#Small bowel obstruction
NG tube placement
Adequate pain control
Antiemetics as needed
Small bowel follow-through �Dilated proximal to mid small bowel, suspicious for mid to distal small bowel obstruction, no contrast into colon
X-ray Abd - continued SB dilation, no air fluid levels, no contrast into colon, no air into descending colon or rectum
General surgery on board
Will start TPN
NPO/NGT
Analgesics/antiemetics prn
Continue IVF
PPI for GI ppx
#Acute pancreatitis
2/3 criteria met-cramping left upper quadrant abdominal pain, elevated lipase.
CT of the abdomen shows no active inflammation.
Lipase 1300 >>>683
Continue n.p.o., IV fluids, optimal pain management.
#Protein calorie malnutrition
Nutrition consult
Will start TPN
#BRADEN
Serum creatinine improving with IV hydration
1.6 >>> 1.0
Trend serum creatinine.
#Hyperkalemia
Resolved with hydration.
Monitor BMP
#Normocytic anemia
Likely secondary to chronic disease, hemoglobin at 8.4 >>7.9 >>7.7 >>8.1
Continue to trend hemoglobin.
#Essential hypertension
Lisinopril restarted
Continue Coreg.
#Hyperlipidemia-
Hold statin for now.
Hypothyroidism-
IV levothyroxine at 84 mcg.
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
Oral carcinoma
History of ovarian cancer s/p MARK
Recurrent SBO
DVT prophylaxis-
Heparin.
CODE STATUS-
Full code.
Anticipated Discharge: 24 - 48 hours
Subjective/Interval History
-
Date of Service: August 18, 2024
Patient still did not have a bowel movement, flatus.
Objective Data
-
Labs:
Laboratory Results
08/18/24
06:41
WBC 5.0
Hgb 8.1 L
Hct 24.0 L
Plt Count 363
Sodium Pending
Potassium Pending
Chloride Pending
Carbon Dioxide Pending
BUN Pending
Creatinine Pending
Glucose Pending
Calcium Pending
Total Bilirubin Pending
AST Pending
ALT Pending
Alkaline Phosphatase Pending
Vital Signs:
Vital Signs
Temp Pulse Resp BP Pulse Ox
97.8 F 63 16 155/85 99
08/17/24 23:26 08/17/24 23:26 08/17/24 23:26 08/17/24 23:26 08/17/24 23:26
I&O
08/17/24 08/18/24 08/19/24
06:59 06:59 06:59
Intake Total 630 / 630 1430 / 1430
Output Total 950 / 1950 2350 / 2350
Balance -320 / -1320 -920 / -920
Physical Exam
-
General: No Apparent Distress
HEENT: Normocephalic, Atraumatic and Other (NG tube with suction)
Respiratory: Clear to Auscultation
Cardiac: Regular Rhythm and S1/S2
GI: Soft, Tender and Distended
Skin: Warm and Dry
Neuro: Awake, Alert, Oriented and AO x 3
Psych: Calm
[2024-08-18 08:02] LABS: ALT (SGPT) 10 U/L (0-35); AST (SGOT) 18 U/L (14-36); Albumin 3.5 g/dl (3.5-5.0); Alkaline Phosphatase 76 U/L (38-126); Blood Urea Nitrogen 22 mg/dl (7-17); Calcium 8.8 mg/dl (8.4-10.2); Carbon Dioxide 20 mmol/L (22-30); Chloride 109 mmol/L (98-107); Estimated Creatinine Clearance 40 ml/min; Glucose 63 mg/dl (70-99); Potassium 3.6 mmol/L (3.5-5.1); Sodium 142 mmol/L (135-145); Total Bilirubin 0.7 mg/dl (0.2-1.3); Total Protein 6.3 g/dl (6.3-8.2); eGFR 54.73
[2024-08-18] MEDS: ZESTRIL 10 MG TUBE (08:32)
[2024-08-18] MEDS: NSS (PRESERVATIVE FREE) 10 ML IV (08:32)
[2024-08-18] MEDS: PROTONIX IV 40 MG IV (08:32)
[2024-08-18] MEDS: COREG 6.25 MG TUBE ×2 (08:32→20:34)
[2024-08-18] MEDS: HEPARIN 5000 UNITS SC ×2 (08:32→20:34)
--- NOTE | 2024-08-18 08:39 | W.PN.GS2 ---
Addendum entered and electronically signed by Lalo Barillas MD 08/18/24 11:46:
XR reviewed, no improvement. Initiate TPN. SSI ordered for glucose control
Original Note:
Today's Communication / Plan
-
F/U XR
Consider TPN
Assessment / Plan
-
Patient is a 69 yo F with multiple abdominal surgeries as below was taken recently to the OR for lap converted to open lysis of adhesions with resection of necrotic bowel on 07/12/2024 p/w obstructive symptoms admitted [address] abdomen pelvis without oral contrast (08/14): mild small bowel dilation concerning for an early SBO versus ileus, her anastomosis looks patent as there is fluid going through it. Transition point appears to be in the pelvis.
SBFT (08/16): continued SB dilation, no air fluid levels, no contrast into colon
X-ray Abd (08/17): continued SB dilation, no air fluid levels, no contrast into colon, no air into descending colon or rectum
AFVSS
No leukocytosis
Chronic anemia persists
Cr stable
Elevated Ca125
Issues with SBO a little over 1 month out following laparoscopic converted to open HUGO. SBFT x-ray confirmed persistent obstruction. No passage of flatus or BM. Discussed options of continued medical management versus surgical management. Pros
and cons were reviewed. Continue with conservative measures for now
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
--F/U XR today
--Review case with Dr. Nettles
--Analgesics/antiemetics prn
--Continue IVF
--Follow labs/exams
--PPI for GI ppx
--Hep SQ for VTE ppx
Subjective Data
-
Date of Service: August 18, 2024
AFVSS, reports improvement in painful abd cramping, denies flatus/BM, denies nausea with NGT to suction; she reports after neck radiation she has compromised swallow function that deteriorates if she does not take PO, she is taking sips and chips
now but feels it may not be enough
Objective Data
-
Intake and Output
08/17/24 08/18/24 08/19/24
06:59 06:59 06:59
Intake Total 630 / 630 1430 / 1430
Output Total 950 / 1950 2350 / 2350
Balance -320 / -1320 -920 / -920
Intake:
Oral fluids 0 / 0 240 / 240
Amount of oral supplement(s) 0 / 0
consumed
IV fluids (Total) 600 / 600 1100 / 1100
IV piggybacks 0 / 0
Amount instilled into GI Tube ( 30 / 30 90 / 90
Total)
[place] Sump 30 / 30 90 / 90
Output:
Gastrointestinal tube output ( 950 / 1950 2350 / 2350
Total)
[place] Sump 950 / 1950 2350 / 2350
Other:
Number of approximated MODERATE 4 2
amounts of urine
Vital Signs
Temp Pulse Resp BP Pulse Ox
97.7 F 72 16 172/93 98
08/18/24 07:30 08/18/24 07:30 08/18/24 07:30 08/18/24 07:30 08/18/24 07:30
Lab Results
08/18/24 06:41
08/18/24 06:41
Calcium 8.8 mg/dl (8.4-10.2) 08/18/24 06:41
Phosphorus 3.2 mg/dl (2.5-4.5) 08/16/24 07:37
Magnesium 1.7 mg/dl (1.6-2.3) 08/16/24 07:37
Total Bilirubin 0.7 mg/dl (0.2-1.3) 08/18/24 06:41
AST 18 U/L (14-36) 08/18/24 06:41
ALT 10 U/L (0-35) 08/18/24 06:41
Alkaline Phosphatase 76 U/L (38-126) 08/18/24 06:41
Total Protein 6.3 g/dl (6.3-8.2) 08/18/24 06:41
Albumin 3.5 g/dl (3.5-5.0) 08/18/24 06:41
Physical Exam
-
Gen: NAD
Abd: soft, nt, softly distended, NGT with thin story fluid
Patient has a valdes catheter: No
Patient has a central line: No
[2024-08-18 12:41] LABS: ALT (SGPT) 11 U/L (0-35); AST (SGOT) 17 U/L (14-36); Albumin 3.5 g/dl (3.5-5.0); Alkaline Phosphatase 73 U/L (38-126); Blood Urea Nitrogen 21 mg/dl (7-17); Calcium 8.6 mg/dl (8.4-10.2); Carbon Dioxide 20 mmol/L (22-30); Chloride 110 mmol/L (98-107); Estimated Creatinine Clearance 44 ml/min; Glucose 68 mg/dl (70-99); Magnesium 1.7 mg/dl (1.6-2.3); Phosphorus 3.4 mg/dl (2.5-4.5); Potassium 3.5 mmol/L (3.5-5.1); Sodium 143 mmol/L (135-145); Total Bilirubin 0.7 mg/dl (0.2-1.3); Total Protein 6.3 g/dl (6.3-8.2); Triglycerides 102 mg/dl (10-149); eGFR > 60.00
[2024-08-18] MEDS: NSS 1000 IV ×2 (13:03→22:26)
--- NOTE | 2024-08-18 14:16 | CM ---
CM reviewed chart, patient seen bedside. Plan to initiate TPN. Patient confirms she lives with her spouse and daughter. CM will follow for all discharge planning needs.
Plan; initiating TPN, return home with /daughter, watch for needs upon d.c
[2024-08-18 16:00] VITALS: BP 174/87
[2024-08-18] MEDS: LEVOTHROID 84 MCG IV (17:53)
[2024-08-18 20:32] VITALS: BP 162/78
[2024-08-18 21:36] VITALS: BMI 16.5
[2024-08-18] MEDS: Parenteral Nutrition, Central 940 IV (21:40)
[2024-08-18] MEDS: NSS IV (22:25)
[2024-08-18 23:30] VITALS: BP 151/81
[2024-08-19 00:19] LABS: Glucose - Point of Care 121 mg/dl (70-99)
[2024-08-19 06:25] LABS: Glucose - Point of Care 160 mg/dl (70-99)
[2024-08-19 06:57] VITALS: BMI 16.6
[2024-08-19 07:00] VITALS: BP 173/89
[2024-08-19 07:38] LABS: Hematocrit 23.1 % (37.0-47.0); Mean Corp Hgb Conc. 34.6 g/dL (33.0-37.0); Mean Corpuscular Hgb 32.5 pg (27.0-31.0); Mean Corpuscular Volume 93.9 fL (81.0-99.0); Mean Platelet Volume 11.5 fL (7.4-10.4); Platelet Count 357 10^3/uL (130-400); Red Blood Cell Count 2.46 10^6/uL (4.20-5.40); Red Cell Dist. Width 13.8 % (11.5-14.5); White Blood Cell Count 4.7 10^3/uL (4.8-10.8)
[2024-08-19] MEDS: ZESTRIL 10 MG TUBE (08:12)
[2024-08-19] MEDS: COREG 6.25 MG TUBE (08:12)
[2024-08-19] MEDS: PROTONIX IV 40 MG IV (08:13)
[2024-08-19] MEDS: NSS (PRESERVATIVE FREE) 10 ML IV (08:13)
[2024-08-19] MEDS: HEPARIN 5000 UNITS SC ×2 (08:13→21:02)
[2024-08-19] MEDS: NSS 1000 IV (08:14)
[2024-08-19 08:22] LABS: ALT (SGPT) < 10 U/L (0-35); AST (SGOT) 16 U/L (14-36); Albumin 3.2 g/dl (3.5-5.0); Alkaline Phosphatase 64 U/L (38-126); Blood Urea Nitrogen 22 mg/dl (7-17); Calcium 8.9 mg/dl (8.4-10.2); Carbon Dioxide 27 mmol/L (22-30); Chloride 107 mmol/L (98-107); Estimated Creatinine Clearance 47 ml/min; Glucose 145 mg/dl (70-99); Magnesium 1.7 mg/dl (1.6-2.3); Phosphorus 3.2 mg/dl (2.5-4.5); Potassium 3.3 mmol/L (3.5-5.1); Sodium 141 mmol/L (135-145); Total Bilirubin 0.4 mg/dl (0.2-1.3); eGFR > 60.00
--- NOTE | 2024-08-19 10:26 | W.PN.GS2 ---
Addendum entered and electronically signed by Jamal Conte MD 08/19/24 11:25:
Patient seen and examined in follow-up with resident.
Patient comfortable with NG tube decompression
Denies abdominal pain
Tolerating NG tube well, no nausea or vomiting
No flatus but did have a formed bowel movement this a.m.
AFVSS
NAD AAO x 3 resting comfortably in hospital bed
ABD: Soft but remains distended and tympanitic. No percussion tenderness. No tenderness on palpation. Recent laparotomy surgical scar well-healed. No significant open wounds.
Assessment/plan: 69-year-old female with early postoperative small bowel obstruction status post lap converted to open lysis of adhesions/SBR 07/12/24.
NG tube outputs remain elevated and bilious but slightly improved from initially after small bowel follow-through study
Formed bowel movement today but not much flatus and still remains distended on exam
Continue NG tube decompression
Continue TPN
Follow-up abdominal x-ray imaging tomorrow to monitor for potential progression of oral contrast
Hypokalemia -replace
Original Note:
Today's Communication / Plan
-
Continue to keep n.p.o., TPN
Abdominal x-ray tomorrow
Monitor NGT output
Assessment / Plan
-
Impression
Patient is a 69 yo F with multiple abdominal surgeries , was taken recently to the OR for lap converted to open lysis of adhesions with resection of necrotic bowel on 07/12/2024 p/w obstructive symptoms admitted 5 days ago. Patient continues to
produce urine output through the NG tube.
CT abdomen pelvis without oral contrast (08/14): mild small bowel dilation concerning for an early SBO versus ileus, her anastomosis looks patent as there is fluid going through it. Transition point appears to be in the pelvis.
SBFT (08/16): continued SB dilation, no air fluid levels, no contrast into colon
X-ray Abd (08/17): continued SB dilation, no air fluid levels, no contrast into colon, no air into descending colon or rectum
On lab review
No leukocytosis
Hemoglobin stable at 8
Hypokalemia-potassium repleted
Stable liver and renal function tests
Assessment
Based on history examination and data review, patient had a complicated small bowel obstruction over a month out, following laparoscopic converted to open laparotomy. Small bowel follow-through x-ray confirmed persistent obstruction. Patient
reports having a bowel movement today. Discussed that that would not affect the management plan dramatically. She will continue on total parenteral nutrition and IV fluids. Given her bowel movements are decreased and she is still very distended
with a lot of NG output we will continue conservative measures for now. Pros and cons were reviewed with the patient
Plan
Continue to keep n.p.o./NGT, ice chips but no sips of clears
Continue TPN
Follow-up imaging tomorrow
continue to monitor for any further bowel movements
--Analgesics/antiemetics prn
--Continue IVF
--Follow labs/exams
--PPI for GI ppx
--Hep SQ for VTE ppx
Subjective Data
-
Date of Service: August 19, 2024
Had a bowel movement this morning, formed stool with no blood or mucus. Still having a lot of output through the nasogastric tube. Denies any nausea or abdominal pain
Objective Data
-
Intake and Output
08/18/24 08/19/24 08/20/24
06:59 06:59 06:59
Intake Total 1430 / 1430 2310 / 2310
Output Total 2350 / 2350 1150 / 1150
Balance -920 / -920 1160 / 1160
Intake:
Oral fluids 240 / 240 360 / 360
IV fluids (Total) 1100 / 1100 1210 / 1210
Amount instilled into GI Tube ( 740 / 740
Total)
[place] Sump 90 / 90 740 / 740
Output:
Gastrointestinal tube output ( 2350 / 2350 1150 / 1150
Total)
[place] Sump 2350 / 2350 1150 / 1150
Other:
Number of approximated MODERATE 2 4
amounts of urine
Vital Signs
Temp Pulse Resp BP Pulse Ox
98 F 66 19 173/89 99
08/19/24 07:00 08/19/24 08:12 08/19/24 07:00 08/19/24 08:12 08/19/24 07:00
Lab Results
08/19/24 06:39
08/19/24 06:39
Calcium 8.9 mg/dl (8.4-10.2) 08/19/24 06:39
Phosphorus 3.2 mg/dl (2.5-4.5) 08/19/24 06:39
Magnesium 1.7 mg/dl (1.6-2.3) 08/19/24 06:39
Total Bilirubin 0.4 mg/dl (0.2-1.3) 08/19/24 06:39
AST 16 U/L (14-36) 08/19/24 06:39
ALT < 10 U/L (0-35) 08/19/24 06:39
Alkaline Phosphatase 64 U/L (38-126) 08/19/24 06:39
Total Protein 6.0 g/dl (6.3-8.2) L 08/19/24 06:39
Albumin 3.2 g/dl (3.5-5.0) L 08/19/24 06:39
Physical Exam
-
No apparent distress
NGT with bilious output, 1150 output in last 24 hours through NG tube
Abdomen is soft, nontender, slightly distended, no guarding or rebound, bowel sounds decreased
Patient has a valdes catheter: No
Patient has a central line: No
[2024-08-19] MEDS: KCL 270 MEQ IV (11:23)
--- NOTE | 2024-08-19 11:35 | W.PN.HOSP.TC ---
Addendum entered and electronically signed by Nilesh Butts MD 08/19/24 19:41:
Attending Addendum-
I saw and evaluated the patient. I reviewed the resident�s note and agree with findings and plan as documented in the resident�s note. Sub: Feels greatly improved. 2 semi soft BM's no flatus. No fevers chills NV. denies abd discomfort. Full 12 point
ROS reviewed and negative except as documented Exam: Vitals reviewed in chart GEN-NAD heent NG tube in place draining bile non bloody, abd NT mild distention pos BS LE no edema
Plan:
# Recurrent small bowel obstruction with acute pancreatitis
-s/p recent bowel obs and resection on 07/12
-cont NG tube
-cont n.p.o. with ice chips.
-seems to be resolving-pos BM on 08/19
-cont IV hydration
-General surgery on board-appreciate input
-SBFT-08/16- Dilated proximal to mid small bowel, suspicious for mid to distal small bowel obstruction
-repeat x ray 08/17 personally reviewed-multiple distended loops of bowel with a/f levels - consistent with SBO
-repeat abd xr 08/18- appears improved but still obstipated
-cont TPN
-cont conservative management for now, high risk for surgery
#Acute pancreatitis
-resolved
-Continue n.p.o., IV fluids, optimal pain management
-lipase trended down
# Hypokalemia
- replete
- recheck BMP in am
# ? Colonic Mass
- c/s colorectal surgery for eval if warranted
#Recent mid line wound infection-
-S/p antibiotic course, local wound care
-Improving-granulation tissue noted
# BRADEN-
resolved
avoid nephrotoxic agents
cont iVF
# Severe PCM
- nutrition consult
- start TPN
#Normocytic anemia-
stable
tx for HB < 7
Continue to trend
#Essential hypertension-
- cont Lisinopril and Coreg via tube
#Hyperlipidemia-
-Hold statin for now.
#Hypothyroidism-
-IV levothyroxine as NPO
-TSH WNL
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
oral SCC carcinoma
met ovarian cancer s/p MARK- elevated ca 125 - will need f/u as OP d/w patient
Recurrent SBO
DVT prophylaxis-
Heparin
CODE STATUS-
Full code.
Time spent coordinating care, review of plan of care with resident, personally reviewed records in EMR, med rec, consults, notes, labs, radiology, d/w nursing and surgery � 52 mins
Original Note:
Today's Communication/Plan
-
Continue TPN
Assessment / Plan
Assessment / Plan
Wnevgzusbv-36-xlik-old female with PMHx significant for oral squamous cell carcinoma s/p resection, recurrent small bowel resections (2004, 2009, 2010), with most recent hospital admission at from 07/12 to 07/21/2024-for necrotic small bowel
resection secondary to adhesions presents to the hospital for constipation cramping abdominal pain nausea and vomiting with no flatus for 2 days-diagnosed to have recurrent small bowel obstruction.
Plan
#Small bowel obstruction
NG tube placement
Adequate pain control
Antiemetics as needed
Small bowel follow-through �Dilated proximal to mid small bowel, suspicious for mid to distal small bowel obstruction, no contrast into colon
X-ray Abd - continued SB dilation, no air fluid levels, no contrast into colon, no air into descending colon or rectum
General surgery on board
Continue TPN
NPO/NGT
Analgesics/antiemetics prn
Continue IVF
PPI for GI ppx
Will touch base with surgery for bringing colorectal on board,���mass in the descending colon??
#Acute pancreatitis
2/3 criteria met-cramping left upper quadrant abdominal pain, elevated lipase.
CT of the abdomen shows no active inflammation.
Lipase 1300 >>>683
Continue n.p.o., IV fluids, optimal pain management.
#Protein calorie malnutrition
Nutrition consult
Continue TPN
#BRADEN
Serum creatinine improving with IV hydration
1.6 >>> 1.0
Trend serum creatinine.
#Hyperkalemia
Resolved with hydration.
Monitor BMP
#Normocytic anemia
Likely secondary to chronic disease, hemoglobin at 8.4 > >8.0
Continue to trend hemoglobin.
#Essential hypertension
Hydralazine as needed
#Hyperlipidemia-
Hold statin for now.
Hypothyroidism-
IV levothyroxine at 84 mcg.
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
Oral carcinoma
History of ovarian cancer s/p MARK
Recurrent SBO
DVT prophylaxis-
Heparin.
CODE STATUS-
Full code.
Anticipated Discharge: 24 - 48 hours
Subjective/Interval History
-
Date of Service: August 19, 2024
Patient had a bowel movement, solid well-formed stool without any blood. No flatus.
Objective Data
-
Labs:
Laboratory Results
08/19/24
06:39
WBC 4.7 L
Hgb 8.0 L
Hct 23.1 L
Plt Count 357
Sodium 141
Potassium 3.3 L
Chloride 107
Carbon Dioxide 27
BUN 22 H
Creatinine 0.9
Glucose 145 H
Calcium 8.9
Total Bilirubin 0.4
AST 16
ALT < 10
Alkaline Phosphatase 64
Vital Signs:
Vital Signs
Temp Pulse Resp BP Pulse Ox
98 F 66 19 173/89 98
08/19/24 07:00 08/19/24 08:12 08/19/24 07:00 08/19/24 08:12 08/19/24 08:00
I&O
08/18/24 08/19/24 08/20/24
06:59 06:59 06:59
Intake Total 1430 / 1430 2310 / 2310
Output Total 2350 / 2350 1150 / 1150
Balance -920 / -920 1160 / 1160
Physical Exam
-
General: No Apparent Distress
HEENT: Normocephalic, Atraumatic and Other (NG tube in place)
Respiratory: Clear to Auscultation
Cardiac: Regular Rhythm and S1/S2
GI: Soft, Distended and Other (Hyperactive bowel sounds)
Skin: Warm and Dry
Neuro: Awake, Alert, Oriented and AO x 3
Psych: Calm
[2024-08-19 11:50] LABS: Glucose - Point of Care 157 mg/dl (70-99)
--- NOTE | 2024-08-19 14:14 | CM ---
CM reviewed chart, patient continues with NG tube, plan for abdominal x-ray tomorrow. Plan remains return home with spouse when stable. CM will continue to follow for all discharge planning needs.
Plan; remains with NG tube, home with spouse when stable likely
[2024-08-19 15:00] VITALS: BP 170/97
[2024-08-19 17:31] LABS: Glucose - Point of Care 136 mg/dl (70-99)
[2024-08-19] MEDS: LEVOTHROID 84 MCG IV (18:20)
[2024-08-19] MEDS: Parenteral Nutrition, Central 1200 IV (21:02)
[2024-08-19 23:44] LABS: Glucose - Point of Care 142 mg/dl (70-99)
[2024-08-19 23:46] VITALS: BP 137/89
[2024-08-20 06:00] VITALS: BMI 16.6
[2024-08-20 06:33] LABS: Glucose - Point of Care 132 mg/dl (70-99)
[2024-08-20] MEDS: HEPARIN 5000 UNITS SC ×2 (07:58→21:41)
[2024-08-20] MEDS: NSS (PRESERVATIVE FREE) 10 ML IV (08:02)
[2024-08-20] MEDS: PROTONIX IV 40 MG IV (08:02)
[2024-08-20 08:09] LABS: Hematocrit 26.8 % (37.0-47.0); Hemoglobin 9.1 g/dL (12.0-16.0); Mean Corpuscular Hgb 32.2 pg (27.0-31.0); Mean Corpuscular Volume 94.7 fL (81.0-99.0); Platelet Count 416 10^3/uL (130-400); Red Blood Cell Count 2.83 10^6/uL (4.20-5.40); White Blood Cell Count 4.5 10^3/uL (4.8-10.8)
[2024-08-20 08:11] VITALS: BP 153/96
--- NOTE | 2024-08-20 08:53 | W.PN.GS2 ---
Addendum entered and electronically signed by Lalo Barillas MD 08/20/24 15:28:
I saw and examined the patient.
The [employer]'s note was reviewed and I agree with the note.
Comment: Reports feeling less distended. BM yesterday. No flatus. Remains soft and tympanitic on exam but feels less distended. XR with slight improvement in sb distention but no clear contrast progression. Will cont current mgmt.
Original Note:
Today's Communication / Plan
-
ABD XR
Continue TPN
Assessment / Plan
-
Patient is a 69 yo F with multiple abdominal surgeries , was taken recently to the OR for lap converted to open lysis of adhesions with resection of necrotic bowel on 07/12/2024 p/w obstructive symptoms admitted 5 days ago. Patient continues to
produce urine output through the NG tube.
CT abdomen pelvis without oral contrast (08/14): mild small bowel dilation concerning for an early SBO versus ileus, her anastomosis looks patent as there is fluid going through it. Transition point appears to be in the pelvis.
SBFT (08/16): continued SB dilation, no air fluid levels, no contrast into colon
X-ray Abd (08/17): continued SB dilation, no air fluid levels, no contrast into colon, no air into descending colon or rectum
AFVSS
CBC stable, no leukocytosis
BMP pending
Plan
--Continue to keep n.p.o./NGT, ice chips but no sips of clears
--Strict I&O's
--Continue TPN, nutrition recs appreciated
--Replace electrolytes prn
--Follow-up imaging XR today
--Analgesics/antiemetics prn
--Follow labs/exams
--PPI for GI ppx
--Hep SQ for VTE ppx
Subjective Data
-
Date of Service: August 20, 2024
Patient seen and examined at bedside with Dr. Barillas. Denies n/v. Passed some small smears of stool yesterday. Not really passing flatus. Denies pain.
Objective Data
-
Intake and Output
08/19/24 08/20/24 08/21/24
06:59 06:59 06:59
Intake Total 2310 / 2310
Output Total 1150 / 1150
Balance 1160 / 1160
Intake:
Oral fluids 360 / 360
IV fluids (Total) 1210 / 1210
Amount instilled into GI Tube ( 740 / 740
Total)
[place] Sump 740 / 740
Output:
Gastrointestinal tube output ( 1150 / 1150
Total)
[place] Sump 1150 / 1150
Other:
Number of approximated MODERATE 4 2
amounts of urine
Vital Signs
Temp Pulse Resp BP Pulse Ox
97.4 F 73 14 153/96 95
08/20/24 08:11 08/20/24 08:11 08/20/24 08:11 08/20/24 08:11 08/20/24 08:11
Lab Results
08/20/24 06:45
Calcium 8.9 mg/dl (8.4-10.2) 08/19/24 06:39
Phosphorus 3.2 mg/dl (2.5-4.5) 08/19/24 06:39
Magnesium 1.7 mg/dl (1.6-2.3) 08/19/24 06:39
Total Bilirubin 0.4 mg/dl (0.2-1.3) 08/19/24 06:39
AST 16 U/L (14-36) 08/19/24 06:39
ALT < 10 U/L (0-35) 08/19/24 06:39
Alkaline Phosphatase 64 U/L (38-126) 08/19/24 06:39
Total Protein 6.0 g/dl (6.3-8.2) L 08/19/24 06:39
Albumin 3.2 g/dl (3.5-5.0) L 08/19/24 06:39
Physical Exam
-
No apparent distress
NGT with bilious output, outputs not recorded
Abdomen is soft, nontender, distended with +tympany, no guarding or rebound
Patient has a valdes catheter: No
Patient has a central line: No
--- NOTE | 2024-08-20 08:55 | W.PN.HOSP.TC ---
Addendum entered and electronically signed by Nilesh Butts MD 08/20/24 21:04:
Attending Addendum-
I saw and evaluated the patient. I reviewed the resident�s note and agree with findings and plan as documented in the resident�s note. Sub: no bm since yesterday morning. no flatus. feel less ditended. No fevers chills NV. denies abd discomfort.
Full 12 point ROS reviewed and negative except as documented Exam: Vitals reviewed in chart GEN-NAD heent NG tube in place draining bile non bloody fluid, abd NT mild distention tympanitic high pitched BS LE no edema
Plan:
# Recurrent small bowel obstruction
-s/p recent bowel obs and resection on 07/12
-cont NG tube still with sig output
-cont n.p.o. with ice chips.
-pos BM on 08/19
-no BM/flatus 08/20
-cont IV hydration
-General surgery on board-appreciate input
-SBFT-08/16- Dilated proximal to mid small bowel, suspicious for mid to distal small bowel obstruction
-repeat abd xr 08/20- appears minimally improved with no sig contrast progression
-cont TPN
-cont conservative management for now, high risk for surgery
#Acute pancreatitis
-resolved
-Continue n.p.o., IV fluids, optimal pain management
# Hypokalemia
- replete prn
- recheck BMP in am
# ? Colonic Mass
- d/w gen surg ok for OP eval not contributing to SBO
#Recent mid line wound infection-
-S/p antibiotic course, local wound care
-Improving-granulation tissue noted
# BRADEN-
resolved
avoid nephrotoxic agents
cont iVF
# Severe PCM
- cont TPN
#Normocytic anemia-
stable
tx for HB < 7
Continue to trend
#Essential hypertension-
- cont Lisinopril and Coreg via tube
#Hyperlipidemia-
-Hold statin for now.
#Hypothyroidism-
-IV levothyroxine
-TSH WNL
# Leukopenia
- CTM
- repeat CBC in am
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
oral SCC carcinoma
met ovarian cancer s/p MARK- elevated ca 125 - will need f/u as OP d/w patient
Recurrent SBO
DVT prophylaxis-
Heparin
CODE STATUS-
Full code.
Time spent coordinating care, review of plan of care with resident, personally reviewed records in EMR, med rec, consults, notes, labs, radiology, d/w nursing and surgery � 51 mins
Original Note:
Today's Communication/Plan
-
Continue TPN
Assessment / Plan
Assessment / Plan
Mertmcgmpw-50-gcon-old female with PMHx significant for oral squamous cell carcinoma s/p resection, recurrent small bowel resections (2004, 2009, 2010), with most recent hospital admission at from 07/12 to 07/21/2024-for necrotic small bowel
resection secondary to adhesions presents to the hospital for constipation cramping abdominal pain nausea and vomiting with no flatus for 2 days-diagnosed to have recurrent small bowel obstruction.
Plan
#Small bowel obstruction
NG tube placement
Adequate pain control
Antiemetics as needed
Small bowel follow-through �Dilated proximal to mid small bowel, suspicious for mid to distal small bowel obstruction, no contrast into colon
X-ray Abd - continued SB dilation, no air fluid levels, no contrast into colon, no air into descending colon or rectum
General surgery on board
Continue TPN
NPO/NGT, ice chips only
Analgesics/antiemetics prn
Continue IVF
PPI for GI ppx
Surgery does not think that colorectal needs to be involved, about the mass in the descending colon as it can be addressed later.
#Acute pancreatitis
2/3 criteria met-cramping left upper quadrant abdominal pain, elevated lipase.
CT of the abdomen shows no active inflammation.
Lipase 1300 >>>683
Continue n.p.o., IV fluids, optimal pain management.
#Protein calorie malnutrition
Nutrition consult
Continue TPN
#BRADEN
Serum creatinine improving with IV hydration
1.6 >>> 1.0
Trend serum creatinine.
#Hyperkalemia
Resolved with hydration.
Monitor BMP
#Normocytic anemia
Likely secondary to chronic disease, hemoglobin at 8.4 > > 9.1
Continue to trend hemoglobin.
#Essential hypertension
Hydralazine as needed
#Hyperlipidemia-
Hold statin for now.
Hypothyroidism-
IV levothyroxine at 84 mcg.
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
Oral carcinoma
History of ovarian cancer s/p MARK
Recurrent SBO
DVT prophylaxis-
Heparin.
CODE STATUS-
Full code.
Anticipated Discharge: 24 - 48 hours
Subjective/Interval History
-
Date of Service: August 20, 2024
Patient feels less distended. No flatus.
Objective Data
-
Labs:
Laboratory Results
08/20/24
06:45
WBC 4.5 L
Hgb 9.1 L
Hct 26.8 L
Plt Count 416 H
Sodium Pending
Potassium Pending
Chloride Pending
Carbon Dioxide Pending
BUN Pending
Creatinine Pending
Glucose Pending
Calcium Pending
Total Bilirubin Pending
AST Pending
ALT Pending
Alkaline Phosphatase Pending
Vital Signs:
Vital Signs
Temp Pulse Resp BP Pulse Ox
97.4 F 73 14 153/96 95
08/20/24 08:11 08/20/24 08:11 08/20/24 08:11 08/20/24 08:11 08/20/24 08:11
I&O
08/19/24 08/20/24 08/21/24
06:59 06:59 06:59
Intake Total 2310 / 2310
Output Total 1150 / 1150
Balance 1160 / 1160
Physical Exam
-
General: No Apparent Distress
HEENT: Normocephalic and Atraumatic
Respiratory: Clear to Auscultation
Cardiac: Regular Rhythm and S1/S2
GI: Nontender, Distended and Other (Hyperactive bowel sounds)
Skin: Warm and Dry
Neuro: Awake, Alert, Oriented and AO x 3
Psych: Calm
[2024-08-20 09:05] LABS: ALT (SGPT) 12 U/L (0-35); AST (SGOT) 17 U/L (14-36); Albumin 3.5 g/dl (3.5-5.0); Alkaline Phosphatase 64 U/L (38-126); Blood Urea Nitrogen 32 mg/dl (7-17); Calcium 9.2 mg/dl (8.4-10.2); Carbon Dioxide 24 mmol/L (22-30); Chloride 108 mmol/L (98-107); Estimated Creatinine Clearance 42 ml/min; Glucose 109 mg/dl (70-99); Magnesium 1.8 mg/dl (1.6-2.3); Phosphorus 3.5 mg/dl (2.5-4.5); Sodium 141 mmol/L (135-145); Total Bilirubin 0.3 mg/dl (0.2-1.3); Total Protein 6.4 g/dl (6.3-8.2); eGFR > 60.00
--- NOTE | 2024-08-20 10:09 | PTCARENOTE ---
Shared with resident that this pt had 700 ml out, last night, within her NG Tube and already put out 350-400 ml. Will share with her MD when she rounds.
[2024-08-20 12:03] LABS: Glucose - Point of Care 122 mg/dl (70-99)
[2024-08-20 15:55] VITALS: BP 135/78
--- NOTE | 2024-08-20 16:07 | CM ---
CM continues to follow for discharge planning needs. Pt known to [facility] and would like resumption of services when she goes home.
TPN has been initiated, NGT in place, draining bile.
Plan: Remains with NGT, Resume [facility] at discharge to home with spouse when stable.
[2024-08-20] MEDS: LEVOTHROID 84 MCG IV (16:38)
[2024-08-20 18:11] LABS: Glucose - Point of Care 85 mg/dl (70-99)
[2024-08-20] MEDS: Parenteral Nutrition, Central 1500 IV (21:19)
[2024-08-20 23:38] VITALS: BP 137/73
[2024-08-21 02:26] LABS: Glucose - Point of Care 137 mg/dl (70-99)
[2024-08-21 05:57] LABS: Glucose - Point of Care 116 mg/dl (70-99)
[2024-08-21 06:29] VITALS: BMI 16.6
[2024-08-21 07:39] LABS: % Basophils 0.2 % (0-2); % Eosinophils 4.6 % (0-6); % Immature Granulocytes 0.2 % (0-0.5); % Lymphocytes 19.8 % (20.5-51.1); % Monocytes 9.4 % (1.7-9.3); % Neutrophils 65.8 % (42.2-75.2); Absolute Eosinophils 0.2 10^3/uL (0-0.7); Absolute Monocytes 0.5 10^3/uL (0.1-0.6); Absolute Neutrophils 3.2 10^3/uL (1.4-6.5); Hematocrit 24.8 % (37.0-47.0); Hemoglobin 8.7 g/dL (12.0-16.0); Mean Corp Hgb Conc. 35.1 g/dL (33.0-37.0); Mean Corpuscular Hgb 32.6 pg (27.0-31.0); Mean Corpuscular Volume 92.9 fL (81.0-99.0); Mean Platelet Volume 10.6 fL (7.4-10.4); Nucleated Red Blood Cells % 0 %; Platelet Count 416 10^3/uL (130-400); Red Blood Cell Count 2.67 10^6/uL (4.20-5.40); White Blood Cell Count 4.8 10^3/uL (4.8-10.8)
[2024-08-21 07:53] VITALS: BP 149/84
[2024-08-21] MEDS: HEPARIN 5000 UNITS SC ×2 (08:09→20:54)
[2024-08-21] MEDS: NSS (PRESERVATIVE FREE) 10 ML IV (08:11)
[2024-08-21] MEDS: PROTONIX IV 40 MG IV (08:11)
[2024-08-21 08:19] LABS: ALT (SGPT) < 10 U/L (0-35); AST (SGOT) 14 U/L (14-36); Albumin 3.2 g/dl (3.5-5.0); Alkaline Phosphatase 55 U/L (38-126); Blood Urea Nitrogen 41 mg/dl (7-17); Calcium 9.3 mg/dl (8.4-10.2); Carbon Dioxide 25 mmol/L (22-30); Chloride 109 mmol/L (98-107); Estimated Creatinine Clearance 42 ml/min; Glucose 129 mg/dl (70-99); Magnesium 1.9 mg/dl (1.6-2.3); Phosphorus 4.5 mg/dl (2.5-4.5); Potassium 4.8 mmol/L (3.5-5.1); Sodium 140 mmol/L (135-145); Total Bilirubin 0.1 mg/dl (0.2-1.3); eGFR > 60.00
--- NOTE | 2024-08-21 11:33 | W.PN.HOSP.TC ---
Today's Communication/Plan
-
Monitor vital signs see plan
Continue with TPN per surgery
Maintain NG tube
Monitor electrolytes
Assessment / Plan
Assessment / Plan
[id number]-36-iuvx-old female with PMHx significant for oral squamous cell carcinoma s/p resection, recurrent small bowel resections (2004, 2009, 2010), with most recent hospital admission at from 07/12 to 07/21/2024-for necrotic small bowel
resection secondary to adhesions presents to the hospital for constipation cramping abdominal pain nausea and vomiting with no flatus for 2 days-diagnosed to have recurrent small bowel obstruction.
Plan
#Small bowel obstruction
NG tube placement
Adequate pain control
Antiemetics as needed
Small bowel follow-through �Dilated proximal to mid small bowel, suspicious for mid to distal small bowel obstruction, no contrast into colon
X-ray Abd - continued SB dilation, no air fluid levels, no contrast into colon, no air into descending colon or rectum
General surgery on board
Continue TPN per surgery
NPO/NGT, ice chips only; NGT tube still with drainage; monitor
Analgesics/antiemetics prn
PPI for GI ppx
Surgery does not think that colorectal needs to be involved, about the mass in the descending colon as it can be addressed later.
#Acute pancreatitis
2/3 criteria met-cramping left upper quadrant abdominal pain, elevated lipase.
CT of the abdomen shows no active inflammation.
Lipase 1300 >>>683
Continue n.p.o., IV fluids, optimal pain management.
#Protein calorie malnutrition
Nutrition consult
Continue TPN
#BRADEN
Serum creatinine improving with IV hydration
1.6 >>> 1.0
Trend serum creatinine.
#Hyperkalemia
Resolved with hydration.
Monitor BMP
#Normocytic anemia
Likely secondary to chronic disease
Continue to trend hemoglobin.
#Essential hypertension
Hydralazine as needed
#Hyperlipidemia-
Hold statin for now.
Hypothyroidism-
IV levothyroxine at 84 mcg.
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
Oral carcinoma
History of ovarian cancer s/p MARK
Recurrent SBO
DVT prophylaxis-
Heparin.
CODE STATUS-
Full code.
General: No Apparent Distress
HEENT: Normocephalic and Atraumatic; NGT
Respiratory: Clear to Auscultation
Cardiac: Regular Rhythm and S1/S2
GI: Nontender, Distended
Skin: Warm and Dry
Neuro: Awake, Alert, Oriented and AO x 3
Psych: Calm
Anticipated Discharge: > 48 hours
Subjective/Interval History
-
Date of Service: August 21, 2024
denies pain
Objective Data
-
Labs:
Laboratory Results
08/21/24
07:21
WBC 4.8
Hgb 8.7 L
Hct 24.8 L
Plt Count 416 H
Sodium 140
Potassium 4.8
Chloride 109 H
Carbon Dioxide 25
BUN 41 H
Creatinine 1.0
Glucose 129 H
Calcium 9.3
Total Bilirubin 0.1 L
AST 14
ALT < 10
Alkaline Phosphatase 55
Vital Signs:
Vital Signs
Temp Pulse Resp BP Pulse Ox
97.8 F 76 16 149/84 97
08/21/24 07:53 08/21/24 07:53 08/21/24 07:53 08/21/24 07:53 08/21/24 07:53
I&O
08/20/24 08/21/24 08/22/24
06:59 06:59 06:59
Intake Total 2648 / 2648
Output Total 1300 / 1300
Balance 1348 / 1348
--- NOTE | 2024-08-21 11:48 | PTCARENOTE ---
Assumed care of pt from previous nurse. pt denies pain. pt ng tube flushed per order, tolerated. Pt with hypoactive bowel sounds. No n/v noted. call noguera is within reach, pt rings tatyana. will cont to monitor.
--- NOTE | 2024-08-21 13:04 | W.PN.GS2 ---
Addendum entered and electronically signed by Lalo Barillas MD 08/21/24 13:15:
I saw and examined the patient.
The Silk Spotter's note was reviewed and I agree with the note.
Comment: Less distended, denies pain. denies flatus. non tender. cont current mgmt.
Original Note:
Today's Communication / Plan
-
NPO/TPN
Assessment / Plan
-
Patient is a 69 yo F with multiple abdominal surgeries , was taken recently to the OR for lap converted to open lysis of adhesions with resection of necrotic bowel on 07/12/2024 p/w obstructive symptoms admitted 5 days ago. Patient continues to
produce urine output through the NG tube.
CT abdomen pelvis without oral contrast (08/14): mild small bowel dilation concerning for an early SBO versus ileus, her anastomosis looks patent as there is fluid going through it. Transition point appears to be in the pelvis.
SBFT (08/16): continued SB dilation, no air fluid levels, no contrast into colon
X-ray Abd (08/17): continued SB dilation, no air fluid levels, no contrast into colon, no air into descending colon or rectum
AFVSS
CBC stable, no leukocytosis
BMP pending
May require surgery as SBO not resolving with medical measures; however, given her recent exploratory laparotomy, she is high risk for intraabdominal surgery at this time. Ideally, would not take back to OR until she is at least 6 weeks out from
prior open abdominal procedure. This was d/w the patient at bedside. Will continue decompression/bowel rest/IV nutrition and continue to follow.
Plan
--Continue to keep n.p.o./NGT, ice chips but no sips of clears
--Strict I&O's
--Continue TPN, nutrition recs appreciated
--Replace electrolytes prn
--Analgesics/antiemetics prn
--Follow labs/exams
--PPI for GI ppx
--Hep SQ for VTE ppx
Subjective Data
-
Date of Service: August 21, 2024
Patient seen and examined at bedside with Dr. Barillas. Denies n/v. Not passing flatus/stools. Denies pain.
Objective Data
-
Intake and Output
08/20/24 08/21/24 08/22/24
06:59 06:59 06:59
Intake Total 2648 / 2648
Output Total 1300 / 1300
Balance 1348 / 1348
Intake:
TPN/PPN 2648 / 2648
Amount instilled into GI Tube ( 0 / 0
Total)
[place] Sump 0 / 0
Output:
Gastrointestinal tube output ( 1300 / 1300
Total)
[place] Sump 1300 / 1300
Other:
Number of approximated MODERATE 2 2
amounts of urine
Vital Signs
Temp Pulse Resp BP Pulse Ox
97.8 F 76 16 149/84 97
08/21/24 07:53 08/21/24 07:53 08/21/24 07:53 08/21/24 07:53 08/21/24 08:00
Lab Results
08/21/24 07:21
08/21/24 07:21
Calcium 9.3 mg/dl (8.4-10.2) 08/21/24 07:21
Phosphorus 4.5 mg/dl (2.5-4.5) 08/21/24 07:21
Magnesium 1.9 mg/dl (1.6-2.3) 08/21/24 07:21
Total Bilirubin 0.1 mg/dl (0.2-1.3) L 08/21/24 07:21
AST 14 U/L (14-36) 08/21/24 07:21
ALT < 10 U/L (0-35) 08/21/24 07:21
Alkaline Phosphatase 55 U/L (38-126) 08/21/24 07:21
Total Protein 6.0 g/dl (6.3-8.2) L 08/21/24 07:21
Albumin 3.2 g/dl (3.5-5.0) L 08/21/24 07:21
Physical Exam
-
No apparent distress
NGT with bilious outputs
Abdomen is soft, nontender, mildly distended, no guarding or rebound
Patient has a valdes catheter: No
Patient has a central line: No
[2024-08-21 13:59] LABS: Glucose - Point of Care 124 mg/dl (70-99)
[2024-08-21 16:00] VITALS: BP 145/85
[2024-08-21 17:34] LABS: Glucose - Point of Care 128 mg/dl (70-99)
[2024-08-21] MEDS: LEVOTHROID 84 MCG IV (18:15)
[2024-08-21] MEDS: Parenteral Nutrition, Central 1500 IV (20:54)
[2024-08-21 23:31] VITALS: BP 128/74
[2024-08-22 01:05] LABS: Glucose - Point of Care 123 mg/dl (70-99)
[2024-08-22 06:12] LABS: % Basophils 0.7 % (0-2); % Eosinophils 5.3 % (0-6); % Immature Granulocytes 0.5 % (0-0.5); % Monocytes 10.1 % (1.7-9.3); % Neutrophils 63.4 % (42.2-75.2); Absolute Eosinophils 0.2 10^3/uL (0-0.7); Absolute Lymphocytes 0.9 10^3/uL (1.2-3.4); Absolute Monocytes 0.4 10^3/uL (0.1-0.6); Absolute Neutrophils 2.8 10^3/uL (1.4-6.5); Hematocrit 24.6 % (37.0-47.0); Hemoglobin 8.5 g/dL (12.0-16.0); Mean Corp Hgb Conc. 34.6 g/dL (33.0-37.0); Mean Corpuscular Hgb 32.6 pg (27.0-31.0); Mean Corpuscular Volume 94.3 fL (81.0-99.0); Mean Platelet Volume 10.6 fL (7.4-10.4); Nucleated Red Blood Cells % 0 %; Platelet Count 428 10^3/uL (130-400); Red Blood Cell Count 2.61 10^6/uL (4.20-5.40); Red Cell Dist. Width 14.3 % (11.5-14.5); White Blood Cell Count 4.3 10^3/uL (4.8-10.8)
[2024-08-22 06:15] VITALS: BMI 16.8
[2024-08-22 06:32] LABS: ALT (SGPT) 36 U/L (0-35); AST (SGOT) 41 U/L (14-36); Alkaline Phosphatase 54 U/L (38-126); Blood Urea Nitrogen 48 mg/dl (7-17); Calcium 9.1 mg/dl (8.4-10.2); Carbon Dioxide 27 mmol/L (22-30); Chloride 109 mmol/L (98-107); Estimated Creatinine Clearance 39 ml/min; Glucose 109 mg/dl (70-99); Potassium 4.9 mmol/L (3.5-5.1); Sodium 137 mmol/L (135-145); Total Bilirubin 0.2 mg/dl (0.2-1.3); Total Protein 5.8 g/dl (6.3-8.2); eGFR 54.73
[2024-08-22 06:35] LABS: Glucose - Point of Care 124 mg/dl (70-99)
[2024-08-22 07:22] VITALS: BP 124/82
[2024-08-22] MEDS: PROTONIX IV 40 MG IV (07:30)
[2024-08-22] MEDS: HEPARIN 5000 UNITS SC ×2 (07:30→21:21)
[2024-08-22] MEDS: NSS (PRESERVATIVE FREE) 10 ML IV (07:31)
--- NOTE | 2024-08-22 10:02 | W.PN.GS2 ---
Today's Communication / Plan
-
NGT/TPN
Assessment / Plan
-
Patient is a 69 yo F with multiple abdominal surgeries , was taken recently to the OR for lap converted to open lysis of adhesions with resection of necrotic bowel on 07/12/2024 p/w obstructive symptoms admitted 5 days ago. Patient continues to
produce urine output through the NG tube.
CT abdomen pelvis without oral contrast (08/14): mild small bowel dilation concerning for an early SBO versus ileus, her anastomosis looks patent as there is fluid going through it. Transition point appears to be in the pelvis.
SBFT (08/16): continued SB dilation, no air fluid levels, no contrast into colon
X-ray Abd (08/17): continued SB dilation, no air fluid levels, no contrast into colon, no air into descending colon or rectum
AFVSS
CBC stable, no leukocytosis
BMP pending
Passing flatus but still with tympany/distention
May require surgery if SBO not resolving with medical measures; however, given her recent exploratory laparotomy, she is high risk for intraabdominal surgery at this time. Ideally, would not take back to OR until she is at least 6 weeks out from
prior open abdominal procedure. This was d/w the patient at bedside. Will continue decompression/bowel rest/IV nutrition and continue to follow.
Plan
--Continue to keep n.p.o./NGT, ice chips but no sips of clears
--Strict I&O's
--Continue TPN, nutrition recs appreciated
--Replace electrolytes prn
--Analgesics/antiemetics prn
--Follow labs/exams
--PPI for GI ppx
--Hep SQ for VTE ppx
Subjective Data
-
Date of Service: August 22, 2024
Pt seen and examined at bedside. Denies n/v. Passed flatus a few time. No BM's. Denies pain.
Objective Data
-
Intake and Output
08/21/24 08/22/24 08/23/24
06:59 06:59 06:59
Intake Total 2648 / 2648 2183
Output Total 1300 / 1300 230 / 230
Balance 1348 / 1348 1953
Intake:
TPN/PPN 2648 / 2648 2093
Amount instilled into GI Tube ( 0 / 0 90 / 90
Total)
[place] Sump 0 / 0 90 / 90
Output:
Gastrointestinal tube output ( 1300 / 1300 230 / 230
Total)
[place] Sump 1300 / 1300 230 / 230
Other:
Number of approximated MODERATE 2 3
amounts of urine
Vital Signs
Temp Pulse Resp BP Pulse Ox
97.7 F 82 16 124/82 98
08/22/24 07:22 08/22/24 07:22 08/22/24 07:22 08/22/24 07:22 08/22/24 08:00
Lab Results
08/22/24 05:50
08/22/24 05:50
Calcium 9.1 mg/dl (8.4-10.2) 08/22/24 05:50
Phosphorus 4.5 mg/dl (2.5-4.5) 08/21/24 07:21
Magnesium 1.9 mg/dl (1.6-2.3) 08/21/24 07:21
Total Bilirubin 0.2 mg/dl (0.2-1.3) 08/22/24 05:50
AST 41 U/L (14-36) H 08/22/24 05:50
ALT 36 U/L (0-35) H 08/22/24 05:50
Alkaline Phosphatase 54 U/L (38-126) 08/22/24 05:50
Total Protein 5.8 g/dl (6.3-8.2) L 08/22/24 05:50
Albumin 3.0 g/dl (3.5-5.0) L 08/22/24 05:50
Physical Exam
-
No apparent distress
NGT with bilious outputs
Abdomen is soft, nontender, mildly distended, tympany to left hemiabdomen, no guarding or rebound
Patient has a valdes catheter: No
Patient has a central line: No
[2024-08-22 11:40] LABS: Glucose - Point of Care 114 mg/dl (70-99)
--- NOTE | 2024-08-22 11:51 | W.PN.HOSP.TC ---
Today's Communication/Plan
-
Monitor vital signs see plan
TPN per surgery
Maintain NG tube
Reports passing flatus, monitor
Assessment / Plan
Assessment / Plan
Acguiinctj-15-ce[age]-old female with PMHx significant for oral squamous cell carcinoma s/p resection, recurrent small bowel resections (2004, 2009, 2010), with most recent hospital admission at from 07/12 to 07/21/2024-for necrotic small bowel
resection secondary to adhesions presents to the hospital for constipation cramping abdominal pain nausea and vomiting with no flatus for 2 days-diagnosed to have recurrent small bowel obstruction.
Plan
#Small bowel obstruction
NG tube placement
Adequate pain control
Antiemetics as needed
Small bowel follow-through �Dilated proximal to mid small bowel, suspicious for mid to distal small bowel obstruction, no contrast into colon
X-ray Abd - continued SB dilation, no air fluid levels, no contrast into colon, no air into descending colon or rectum
General surgery on board
Continue TPN per surgery
NPO/NGT, ice chips only; NGT tube still with drainage; monitor
Analgesics/antiemetics prn
PPI for GI ppx
Surgery does not think that colorectal needs to be involved, about the mass in the descending colon as it can be addressed later.
#Acute pancreatitis
2/3 criteria met-cramping left upper quadrant abdominal pain, elevated lipase.
CT of the abdomen shows no active inflammation.
Lipase 1300 >>>683
Continue n.p.o., IV fluids, optimal pain management.
#Protein calorie malnutrition
Nutrition consult
Continue TPN
#BRADEN
Serum creatinine improving with IV hydration
1.6 >>> 1.0
Trend serum creatinine.
#Hyperkalemia
Resolved with hydration.
Monitor BMP
#Normocytic anemia
Likely secondary to chronic disease
Continue to trend hemoglobin.
#Essential hypertension
Hydralazine as needed
#Hyperlipidemia-
Hold statin for now.
Hypothyroidism-
IV levothyroxine at 84 mcg.
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
Oral carcinoma
History of ovarian cancer s/p MARK
Recurrent SBO
DVT prophylaxis-
Heparin.
CODE STATUS-
Full code.
General: No Apparent Distress
HEENT: Normocephalic and Atraumatic; NGT
Respiratory: Clear to Auscultation
Cardiac: Regular Rhythm and S1/S2
GI: Nontender, Distended
Skin: Warm and Dry
Neuro: Awake, Alert, Oriented and AO x 3
Psych: Calm
Anticipated Discharge: > 48 hours
Subjective/Interval History
-
Date of Service: August 22, 2024
passing flatus per patient
Objective Data
-
Labs:
Laboratory Results
08/22/24
05:50
WBC 4.3 L
Hgb 8.5 L
Hct 24.6 L
Plt Count 428 H
Sodium 137
Potassium 4.9
Chloride 109 H
Carbon Dioxide 27
BUN 48 H
Creatinine 1.1 H
Glucose 109 H
Calcium 9.1
Total Bilirubin 0.2
AST 41 H
ALT 36 H
Alkaline Phosphatase 54
Vital Signs:
Vital Signs
Temp Pulse Resp BP Pulse Ox
97.7 F 82 16 124/82 98
08/22/24 07:22 08/22/24 07:22 08/22/24 07:22 08/22/24 07:22 08/22/24 08:00
I&O
08/21/24 08/22/24 08/23/24
06:59 06:59 06:59
Intake Total 2648 / 2648 2184 / 2184
Output Total 1300 / 1300 230 / 230
Balance 1348 / 1348 1953
--- NOTE | 2024-08-22 13:02 | CM ---
CM reviewed chart, patient seen bedside, remains with NG tube, TPN. Patient denies needs from CM at this time. Patient plan remains home with family, [facility] upon discharge.
Plan; remains with NG tube, TPN, home with [facility], watch for further recommendations
[2024-08-22 15:21] VITALS: BP 144/86
[2024-08-22 16:17] LABS: Glucose - Point of Care 115 mg/dl (70-99)
[2024-08-22] MEDS: LEVOTHROID 84 MCG IV (17:20)
[2024-08-22] MEDS: Parenteral Nutrition, Central 1800 IV (21:17)
[2024-08-22 23:24] LABS: Glucose - Point of Care 124 mg/dl (70-99)
[2024-08-22 23:38] VITALS: BP 119/67
[2024-08-23 06:17] LABS: Glucose - Point of Care 133 mg/dl (70-99)
[2024-08-23 07:00] VITALS: BP 128/74
[2024-08-23 07:18] LABS: % Basophils 0.6 % (0-2); % Eosinophils 4.8 % (0-6); % Immature Granulocytes 0.4 % (0-0.5); % Lymphocytes 20.6 % (20.5-51.1); % Monocytes 9.9 % (1.7-9.3); % Neutrophils 63.7 % (42.2-75.2); Absolute Eosinophils 0.2 10^3/uL (0-0.7); Absolute Monocytes 0.5 10^3/uL (0.1-0.6); Hematocrit 25.5 % (37.0-47.0); Hemoglobin 8.7 g/dL (12.0-16.0); Mean Corp Hgb Conc. 34.1 g/dL (33.0-37.0); Mean Corpuscular Hgb 32.7 pg (27.0-31.0); Mean Corpuscular Volume 95.9 fL (81.0-99.0); Mean Platelet Volume 10.4 fL (7.4-10.4); Nucleated Red Blood Cells % 0 %; Platelet Count 448 10^3/uL (130-400); Red Blood Cell Count 2.66 10^6/uL (4.20-5.40); Red Cell Dist. Width 14.8 % (11.5-14.5); White Blood Cell Count 4.8 10^3/uL (4.8-10.8)
[2024-08-23] MEDS: PROTONIX IV 40 MG IV (08:11)
[2024-08-23] MEDS: NSS (PRESERVATIVE FREE) 10 ML IV (08:11)
[2024-08-23] MEDS: HEPARIN 5000 UNITS SC ×2 (08:11→19:25)
[2024-08-23 08:23] LABS: ALT (SGPT) 130 U/L (0-35); AST (SGOT) 116 U/L (14-36); Albumin 3.1 g/dl (3.5-5.0); Alkaline Phosphatase 68 U/L (38-126); Blood Urea Nitrogen 43 mg/dl (7-17); Calcium 9.1 mg/dl (8.4-10.2); Carbon Dioxide 24 mmol/L (22-30); Chloride 107 mmol/L (98-107); Estimated Creatinine Clearance 42 ml/min; Glucose 99 mg/dl (70-99); Phosphorus 4.5 mg/dl (2.5-4.5); Potassium 5.1 mmol/L (3.5-5.1); Sodium 137 mmol/L (135-145); Total Bilirubin 0.4 mg/dl (0.2-1.3); Triglycerides 95 mg/dl (10-149); eGFR > 60.00
--- NOTE | 2024-08-23 08:34 | W.PN.HOSP.TC ---
Today's Communication/Plan
-
NG clamp trial
Assessment / Plan
Assessment / Plan
Bszzxpuory-64-dwoi-old female with PMHx significant for oral squamous cell carcinoma s/p resection, recurrent small bowel resections (2004, 2009, 2010), with most recent hospital admission at from 07/12 to 07/21/2024-for necrotic small bowel
resection secondary to adhesions presents to the hospital for constipation cramping abdominal pain nausea and vomiting with no flatus for 2 days-diagnosed to have recurrent small bowel obstruction.
Plan
#Small bowel obstruction
NG tube placement, NG clamp trial today
Repeat x-ray today
Adequate pain control
Antiemetics as needed
General surgery on board
Continue TPN
NPO/ ice chips only; NGT tube still with drainage; monitor
Analgesics/antiemetics prn
PPI for GI ppx
Surgery does not think that colorectal needs to be involved, about the mass in the descending colon as it can be addressed later.
#Acute pancreatitis
2/3 criteria met-cramping left upper quadrant abdominal pain, elevated lipase.
CT of the abdomen shows no active inflammation.
Lipase 1300 >>>683
Continue n.p.o., IV fluids, optimal pain management.
#Protein calorie malnutrition
Nutrition consult
Continue TPN
#BRADEN
Serum creatinine improving with IV hydration
1.6 >>> 1.0
Trend serum creatinine.
#Hyperkalemia
Resolved with hydration.
Monitor BMP
#Normocytic anemia
Likely secondary to chronic disease
Continue to trend hemoglobin.
#Essential hypertension
Hydralazine as needed
#Hyperlipidemia-
Hold statin for now.
Hypothyroidism-
IV levothyroxine at 84 mcg.
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
Oral carcinoma
History of ovarian cancer s/p MARK
Recurrent SBO
DVT prophylaxis-
Heparin.
CODE STATUS-
Full code.
Anticipated Discharge: 24 - 48 hours
Subjective/Interval History
-
Date of Service: August 23, 2024
Patient reports having 3 bowel movements, passing flatus. Improved abdominal pain.
Objective Data
-
Labs:
Laboratory Results
08/23/24
07:07
WBC 4.8
Hgb 8.7 L
Hct 25.5 L
Plt Count 448 H
Sodium 137
Potassium 5.1
Chloride 107
Carbon Dioxide 24
BUN 43 H
Creatinine 1.0
Glucose 99
Calcium 9.1
Total Bilirubin 0.4
AST 116 H
ALT 130 H
Alkaline Phosphatase 68
Vital Signs:
Vital Signs
Temp Pulse Resp BP Pulse Ox
97.2 F 81 16 128/74 95
08/23/24 07:00 08/23/24 07:00 08/23/24 07:00 08/23/24 07:00 08/23/24 07:00
I&O
08/22/24 08/23/24 08/24/24
06:59 06:59 06:59
Intake Total 2184 / 2184 30 / 30
Output Total 230 / 230 150 / 150
Balance 1953 / 1953 -120 / -120
Physical Exam
-
General: No Apparent Distress
HEENT: Normocephalic, Atraumatic and Other (NG tube)
Respiratory: Clear to Auscultation
Cardiac: Regular Rhythm and S1/S2
GI: Soft and Distended
Skin: Warm and Dry
Neuro: Awake, Alert, Oriented and AO x 3
Psych: Calm
--- NOTE | 2024-08-23 10:26 | W.PN.GS2 ---
Addendum entered and electronically signed by Jayson Nettles MD 08/23/24 17:15:
I saw and examined the patient independently.
The Kosher Dietary Service Manager's note was reviewed and I agree with the note, assessment and plan except where noted below.
Comment: This is a 69-year-old female status post recent lap to open lysis of adhesions and SBR for a chronic SBO in late June now with recurrent obstructive symptoms. Given her recent surgery we will plan to manage this nonoperatively with NG
tube decompression, bowel rest and TPN. It appears the patient has finally started to improve both clinically and radiographically.
NG tube can be removed after clamp trial.
Continue TPN
General surgery will continue to follow, anticipate starting clears tomorrow and putting on a full liquid diet at the time of discharge for 2 weeks.
Original Note:
Today's Communication / Plan
-
Clamp NGT
Check XR
Assessment / Plan
-
Patient is a 69 yo F with multiple abdominal surgeries , was taken recently to the OR for lap converted to open lysis of adhesions with resection of necrotic bowel on 07/12/2024 p/w obstructive symptoms admitted 5 days ago. Patient continues to
produce urine output through the NG tube.
CT abdomen pelvis without oral contrast (08/14): mild small bowel dilation concerning for an early SBO versus ileus, her anastomosis looks patent as there is fluid going through it. Transition point appears to be in the pelvis.
SBFT (08/16): continued SB dilation, no air fluid levels, no contrast into colon
X-ray Abd (08/17): continued SB dilation, no air fluid levels, no contrast into colon, no air into descending colon or rectum
AFVSS
Labs stable
Now passing a good amount of flatus/stool; still with mild tympany/distention. NGT outputs overnight of 150ml.
Plan
--Continue to keep npo except sips/chips
--Clamp trial of NGT
--ABD XR
--Strict I&O's
--Continue TPN, nutrition recs appreciated
--Replace electrolytes prn
--Analgesics/antiemetics prn
--Follow labs/exams
--PPI for GI ppx
--Hep SQ for VTE ppx
Subjective Data
-
Date of Service: August 23, 2024
Patient seen and examined at bedside with Dr Philip. Palacios n/v. Passed a good deal of flatus and some loose stools overnight. '[place] like I had a bowel prep'. Denies pain.
Objective Data
-
Intake and Output
08/22/24 08/23/24 08/24/24
06:59 06:59 06:59
Intake Total 2184 / 2184 30 / 30
Output Total 230 / 230 150 / 150
Balance 1953 / 1953 -120 / -120
Intake:
Oral fluids 0 / 0
TPN/PPN 2093
Amount instilled into GI Tube ( 90 / 90 30 / 30
Total)
[place] Sump 90 / 90 30 / 30
Output:
Gastrointestinal tube output ( 230 / 230 150 / 150
Total)
[place] Sump 230 / 230 150 / 150
Other:
Number of approximated MODERATE 3 2
amounts of urine
Number of approximated LARGE 1
amounts of urine
Vital Signs
Temp Pulse Resp BP Pulse Ox
97.2 F 81 16 128/74 97
08/23/24 07:00 08/23/24 07:00 08/23/24 07:00 08/23/24 07:00 08/23/24 09:11
Lab Results
08/23/24 07:07
08/23/24 07:07
Calcium 9.1 mg/dl (8.4-10.2) 08/23/24 07:07
Phosphorus 4.5 mg/dl (2.5-4.5) 08/23/24 07:07
Magnesium 2.0 mg/dl (1.6-2.3) 08/23/24 07:07
Total Bilirubin 0.4 mg/dl (0.2-1.3) 08/23/24 07:07
AST 116 U/L (14-36) H 08/23/24 07:07
ALT 130 U/L (0-35) H 08/23/24 07:07
Alkaline Phosphatase 68 U/L (38-126) 08/23/24 07:07
Total Protein 6.0 g/dl (6.3-8.2) L 08/23/24 07:07
Albumin 3.1 g/dl (3.5-5.0) L 08/23/24 07:07
Physical Exam
-
NAD
ABD soft with mild distention, tympany to left hemiabdomen
NGT with light outputs.
Patient has a valdes catheter: No
Patient has a central line: Yes (port)
--- NOTE | 2024-08-23 11:28 | CM ---
Addendum entered by Peggy Pardo 08/23/24 13:56:
update patient is current with [facility], will place referral in [facility].
Original Note:
CM reviewed chart, patient seen bedside. Plan clamp trial of NGT, continue TPN. Plan home with family and [facility] when stable. CM will continue to follow for all discharge planning needs.
Plan; return home with family and [facility] when stable.
[2024-08-23 12:33] LABS: Glucose - Point of Care 90 mg/dl (70-99)
--- NOTE | 2024-08-23 13:45 | VNURNOTE ---
Chart reviewed. No record of previous [facility] episodes for this patient per [facility] database. Reached out to [facility] and confirmed with Christiana at [facility] that patient is current with them, her chart is hold.
Patient current with [facility], CM notified.
--- NOTE | 2024-08-23 15:01 | PTCARENOTE ---
NG Tube taken out
[2024-08-23 15:45] VITALS: BP 142/80
[2024-08-23] MEDS: LEVOTHROID 84 MCG IV (17:40)
[2024-08-23 17:54] LABS: Glucose - Point of Care 108 mg/dl (70-99)
[2024-08-23] MEDS: Parenteral Nutrition, Central 1800 IV (20:41)
[2024-08-23 23:42] VITALS: BP 156/83
[2024-08-23 23:50] LABS: Glucose - Point of Care 109 mg/dl (70-99)
[2024-08-24 06:45] LABS: Glucose - Point of Care 133 mg/dl (70-99)
[2024-08-24 07:52] VITALS: BP 133/71
[2024-08-24 08:12] LABS: Hematocrit 24.5 % (37.0-47.0); Hemoglobin 8.5 g/dL (12.0-16.0); Mean Corp Hgb Conc. 34.7 g/dL (33.0-37.0); Mean Corpuscular Hgb 32.6 pg (27.0-31.0); Mean Corpuscular Volume 93.9 fL (81.0-99.0); Mean Platelet Volume 11.2 fL (7.4-10.4); Platelet Count 437 10^3/uL (130-400); Red Blood Cell Count 2.61 10^6/uL (4.20-5.40); Red Cell Dist. Width 14.6 % (11.5-14.5); White Blood Cell Count 4.2 10^3/uL (4.8-10.8)
[2024-08-24] MEDS: NSS (PRESERVATIVE FREE) 10 ML IV (08:31)
[2024-08-24] MEDS: PROTONIX IV 40 MG IV (08:31)
[2024-08-24] MEDS: HEPARIN 5000 UNITS SC ×2 (08:31→20:27)
--- NOTE | 2024-08-24 08:50 | W.PN.HOSP.TC ---
Today's Communication/Plan
-
Continue clears
Hold TPN
Assessment / Plan
Assessment / Plan
Vqbpjqftzw-55-xrds-old female with PMHx significant for oral squamous cell carcinoma s/p resection, recurrent small bowel resections (2004, 2009, 2010), with most recent hospital admission at from 07/12 to 07/21/2024-for necrotic small bowel
resection secondary to adhesions presents to the hospital for constipation cramping abdominal pain nausea and vomiting with no flatus for 2 days-diagnosed to have recurrent small bowel obstruction.
Plan
#Small bowel obstruction
NG tube discontinued
Hold TPN for today
Advance diet, clears today
PPI for GI ppx
General surgery on board
Analgesics/antiemetics prn
Surgery does not think that colorectal needs to be involved, about the mass in the descending colon as it can be addressed later.
#Acute pancreatitis
Resolved
#Protein calorie malnutrition
Nutrition consult
Continue TPN
#BRADEN
Serum creatinine improving with IV hydration
1.6 >>> 1.0
Trend serum creatinine.
#Hyperkalemia
Resolved with hydration.
Monitor BMP
#Normocytic anemia
Likely secondary to chronic disease
Continue to trend hemoglobin.
#Essential hypertension
Hydralazine as needed
#Hyperlipidemia-
Hold statin for now.
Hypothyroidism-
IV levothyroxine at 84 mcg.
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
Oral carcinoma
History of ovarian cancer s/p MARK
Recurrent SBO
DVT prophylaxis-
Heparin. Subcu
CODE STATUS-
Full code.
Anticipated Discharge: 24 - 48 hours
Subjective/Interval History
-
Date of Service: August 24, 2024
Patient does not report any nausea/vomiting. She has tolerated clears well. Did not have a bowel movement, but is passing flatus.
Objective Data
-
Labs:
Laboratory Results
08/24/24 08/24/24
07:02 08:47
WBC 4.2 L
Hgb 8.5 L
Hct 24.5 L
Plt Count 437 H
Sodium Pending
Potassium Pending
Chloride Pending
Carbon Dioxide Pending
BUN Pending
Creatinine Pending
Glucose Pending
Calcium Pending
Total Bilirubin Pending
AST Pending
ALT Pending
Alkaline Phosphatase Pending
Vital Signs:
Vital Signs
Temp Pulse Resp BP Pulse Ox
98.1 F 73 18 133/71 98
08/24/24 07:52 08/24/24 07:52 08/24/24 07:52 08/24/24 07:52 08/24/24 07:52
I&O
08/23/24 08/24/24 08/25/24
06:59 06:59 06:59
Intake Total 30 / 30
Output Total 150 / 150
Balance -120 / -120
Physical Exam
-
General: No Apparent Distress
HEENT: Normocephalic and Atraumatic
Respiratory: Clear to Auscultation
Cardiac: Regular Rhythm and S1/S2
GI: Soft, Nontender, Nondistended and Other (On TPN)
Skin: Warm and Dry
Neuro: Awake, Alert, Oriented and AO x 3
Psych: Calm
Data Reviewed
-
Diagnostic Radiology: Report Reviewed by me
Labs: Labs Reviewed by me
--- NOTE | 2024-08-24 08:52 | W.PN.GS2 ---
Today's Communication / Plan
-
--Clears
--Hold on TPN for today
--Pain control: Tylenol, IV Dilaudid PRN, hold on Toradol given mild bump in Cr (would consider starting if Cr stable over the next few days to limit narcotics)
Assessment / Plan
-
Patient is a 69 yo F with multiple abdominal surgeries , was taken recently to the OR for lap converted to open lysis of adhesions with resection of necrotic bowel on 07/12/2024 p/w obstructive symptoms admitted 5 days ago. Patient continues to
produce urine output through the NG tube.
CT abdomen pelvis without oral contrast (08/14): mild small bowel dilation concerning for an early SBO versus ileus, her anastomosis looks patent as there is fluid going through it. Transition point appears to be in the pelvis.
SBFT (08/16): continued SB dilation, no air fluid levels, no contrast into colon
X-ray Abd (08/17): continued SB dilation, no air fluid levels, no contrast into colon, no air into descending colon or rectum
X-ray Abd (08/23): improved SB dilation, contrast into colon
AFVSS
Labs with leukopenia, stable Hb, improved reactive thrombocytosis, CMP pending
Clinical and radiographic improvement. Plan to start clears. Will hold on TPN for today
Plan
--Clears
--Hold on TPN for today
--Replace electrolytes prn
--Pain control: Tylenol, IV Dilaudid PRN, hold on Toradol given mild bump in Cr (would consider starting if Cr stable over the next few days to limit narcotics)
--PPI for GI ppx
--Hep SQ for VTE ppx
-- OOB/ambulate
Subjective Data
-
Date of Service: August 24, 2024
No complaints. Continues to pass flatus, no further BM from large amount yesterday. No nausea or emesis. No increased abdominal distension with NGT removed. No fevers.
Objective Data
-
Intake and Output
08/23/24 08/24/24 08/25/24
06:59 06:59 06:59
Intake Total 30 / 30
Output Total 150 / 150
Balance -120 / -120
Intake:
Oral fluids 0 / 0
Amount instilled into GI Tube ( 30 / 30
Total)
[place] Sump 30 / 30
Output:
Gastrointestinal tube output ( 150 / 150
Total)
[place] Sump 150 / 150
Other:
Number of approximated SMALL 1
amounts of urine
Number of approximated MODERATE 2 1
amounts of urine
Number of approximated LARGE 1
amounts of urine
Vital Signs
Temp Pulse Resp BP Pulse Ox
98.1 F 73 18 133/71 98
08/24/24 07:52 08/24/24 07:52 08/24/24 07:52 08/24/24 07:52 08/24/24 07:52
Lab Results
08/24/24 07:02
Calcium 9.1 mg/dl (8.4-10.2) 08/23/24 07:07
Phosphorus 4.5 mg/dl (2.5-4.5) 08/23/24 07:07
Magnesium 2.0 mg/dl (1.6-2.3) 08/23/24 07:07
Total Bilirubin 0.4 mg/dl (0.2-1.3) 08/23/24 07:07
AST 116 U/L (14-36) H 08/23/24 07:07
ALT 130 U/L (0-35) H 08/23/24 07:07
Alkaline Phosphatase 68 U/L (38-126) 08/23/24 07:07
Total Protein 6.0 g/dl (6.3-8.2) L 08/23/24 07:07
Albumin 3.1 g/dl (3.5-5.0) L 08/23/24 07:07
Physical Exam
-
Gen: NAD
Abd: soft, NT/ND, non-peritoneal, prior incision well healed
Patient has a valdes catheter: No
Patient has a central line: Yes
[2024-08-24 09:07] LABS: ALT (SGPT) 168 U/L (0-35); AST (SGOT) 114 U/L (14-36); Alkaline Phosphatase 80 U/L (38-126); Blood Urea Nitrogen 39 mg/dl (7-17); Calcium 8.9 mg/dl (8.4-10.2); Carbon Dioxide 23 mmol/L (22-30); Chloride 106 mmol/L (98-107); Estimated Creatinine Clearance 42 ml/min; Glucose 94 mg/dl (70-99); Sodium 132 mmol/L (135-145); Total Bilirubin 0.4 mg/dl (0.2-1.3); Total Protein 5.6 g/dl (6.3-8.2); eGFR > 60.00
--- NOTE | 2024-08-24 09:31 | PTCARENOTE ---
pt aaox3. states no pain. states she has been passing gas and having a bm. tpn running as ordered.
[2024-08-24 11:52] LABS: Glucose - Point of Care 140 mg/dl (70-99)
[2024-08-24 13:20] VITALS: BP 142/98; PULSE 102; O2SAT 98
[2024-08-24 15:38] VITALS: BP 132/75
--- NOTE | 2024-08-24 15:48 | CM ---
Patient without NG tube, Patient for discharge home with Arun to follow. [facility] accepted patient for [facility].
Plan; home with family and arun.
--- NOTE | 2024-08-24 16:37 | PTOTSP ---
Orders received. Chart reviewed. Nursing cleared pt for therapy. Pt currently at mod I level with ADLs, transfers and mobility in room and bathroom without AD. Skilled Occupational Therapy not indicated at this time. Will sign off.
[2024-08-24 17:59] LABS: Glucose - Point of Care 107 mg/dl (70-99)
[2024-08-24] MEDS: LEVOTHROID 84 MCG IV (18:46)
[2024-08-24 23:25] VITALS: BP 114/67
[2024-08-24 23:54] LABS: Glucose - Point of Care 102 mg/dl (70-99)
[2024-08-25 03:39] VITALS: BMI 16.5
[2024-08-25 05:49] LABS: Glucose - Point of Care 105 mg/dl (70-99)
[2024-08-25 06:55] LABS: Hematocrit 22.8 % (37.0-47.0); Hemoglobin 7.9 g/dL (12.0-16.0); Mean Corp Hgb Conc. 34.6 g/dL (33.0-37.0); Mean Corpuscular Hgb 32.4 pg (27.0-31.0); Mean Corpuscular Volume 93.4 fL (81.0-99.0); Mean Platelet Volume 11.5 fL (7.4-10.4); Platelet Count 401 10^3/uL (130-400); Red Blood Cell Count 2.44 10^6/uL (4.20-5.40); Red Cell Dist. Width 14.5 % (11.5-14.5)
[2024-08-25 07:13] LABS: ALT (SGPT) 181 U/L (0-35); AST (SGOT) 100 U/L (14-36); Albumin 2.8 g/dl (3.5-5.0); Alkaline Phosphatase 107 U/L (38-126); Blood Urea Nitrogen 38 mg/dl (7-17); Calcium 8.4 mg/dl (8.4-10.2); Carbon Dioxide 21 mmol/L (22-30); Chloride 104 mmol/L (98-107); Estimated Creatinine Clearance 42 ml/min; Glucose 89 mg/dl (70-99); Sodium 131 mmol/L (135-145); Total Bilirubin 0.5 mg/dl (0.2-1.3); Total Protein 5.4 g/dl (6.3-8.2); eGFR > 60.00
[2024-08-25 07:52] VITALS: BP 115/76
--- NOTE | 2024-08-25 08:29 | W.PN.HOSP.TC ---
Today's Communication/Plan
-
Advance to full liquids
Assessment / Plan
Assessment / Plan
[age]zeubezh-10-jhrc-old female with PMHx significant for oral squamous cell carcinoma s/p resection, recurrent small bowel resections (2004, 2009, 2010), with most recent hospital admission at from 07/12 to 07/21/2024-for necrotic small bowel
resection secondary to adhesions presents to the hospital for constipation cramping abdominal pain nausea and vomiting with no flatus for 2 days-diagnosed to have recurrent small bowel obstruction.
Plan
#Small bowel obstruction
Advance to full liquids with Ensure, twice daily
Discontinue TPN
Replete electrolytes as needed
Discontinue PPI
General surgery on board
Analgesics/antiemetics prn
#Acute pancreatitis
Resolved
#Protein calorie malnutrition
Nutrition consult
#BRADEN
Serum creatinine improving with IV hydration
1.6 >>> 1.0
Trend serum creatinine.
#Hyperkalemia
Resolved with hydration.
Monitor BMP
#Normocytic anemia
Likely secondary to chronic disease
Continue to trend hemoglobin.
#Essential hypertension
Hydralazine as needed
#Hyperlipidemia-
Hold statin for now.
Hypothyroidism-
IV levothyroxine at 84 mcg.
DVT prophylaxis-
Heparin. Subcu
CODE STATUS-
Full code.
Anticipated Discharge: 24 - 48 hours
Subjective/Interval History
-
Date of Service: August 25, 2024
Patient reports passing flatus. No bowel movement. Tolerated clears well.
Objective Data
-
Labs:
Laboratory Results
08/25/24
06:02
WBC 5.0
Hgb 7.9 L
Hct 22.8 L
Plt Count 401 H
Sodium 131 L
Potassium 5.0
Chloride 104
Carbon Dioxide 21 L
BUN 38 H
Creatinine 1.0
Glucose 89
Calcium 8.4
Total Bilirubin 0.5
AST 100 H
ALT 181 H
Alkaline Phosphatase 107
Vital Signs:
Vital Signs
Temp Pulse Resp BP Pulse Ox
97.8 F 84 16 115/76 97
08/25/24 07:52 08/25/24 07:52 08/25/24 07:52 08/25/24 07:52 08/25/24 07:52
I&O
08/24/24 08/25/24 08/26/24
06:59 06:59 06:59
Intake Total 480 / 480
Balance 480 / 480
Physical Exam
-
General: No Apparent Distress
HEENT: Normocephalic and Atraumatic
Respiratory: Clear to Auscultation
Cardiac: Regular Rhythm and S1/S2
GI: Soft, Nontender, Nondistended and Normal Bowel Sounds
Skin: Warm and Dry
Neuro: Awake, Alert, Oriented and AO x 3
Psych: Calm
[2024-08-25] MEDS: PROTONIX IV 40 MG IV (08:51)
[2024-08-25] MEDS: NSS (PRESERVATIVE FREE) 10 ML IV (08:51)
[2024-08-25] MEDS: FLUSH (NSS) 2 FLUSH IV ×2 (08:53→18:53)
[2024-08-25] MEDS: HEPARIN 5000 UNITS SC ×2 (08:53→19:29)
--- NOTE | 2024-08-25 10:11 | W.PN.GS2 ---
Today's Communication / Plan
-
Fulls
Assessment / Plan
-
Patient is a 69 yo F with multiple abdominal surgeries , was taken recently to the OR for lap converted to open lysis of adhesions with resection of necrotic bowel on 07/12/2024 p/w obstructive symptoms admitted 5 days ago. Patient continues to
produce urine output through the NG tube.
CT abdomen pelvis without oral contrast (08/14): mild small bowel dilation concerning for an early SBO versus ileus, her anastomosis looks patent as there is fluid going through it. Transition point appears to be in the pelvis.
SBFT (08/16): continued SB dilation, no air fluid levels, no contrast into colon
X-ray Abd (08/17): continued SB dilation, no air fluid levels, no contrast into colon, no air into descending colon or rectum
X-ray Abd (08/23): improved SB dilation, contrast into colon
AFVSS
Labs with leukopenia, stable Hb, improved reactive thrombocytosis, CMP pending
Clinical and radiographic improvement. Plan to adv to fulls. Discussed likelihood of persistent pSBO, thus recommended [facility] remaining on fulls with ensure BID and only select soft foods - this is what she had been doing up until she had 2
regular meals and was readmitted after that
Plan
--Adv to fulls with ensure bid
--Stop TPN
--Replace electrolytes prn
--Pain control: prn, minimize
--DC PPI
--Hep SQ for VTE ppx
--OOB/ambulate
Subjective Data
-
Date of Service: August 25, 2024
AFVSS, continues to improve, passing lots of flatus, hang cld, denies n/v
Objective Data
-
Intake and Output
08/24/24 08/25/24 08/26/24
06:59 06:59 06:59
Intake Total 480 / 480
Balance 480 / 480
Intake:
Oral fluids 480 / 480
Other:
Number of approximated SMALL 1
amounts of urine
Number of approximated MODERATE 1 3
amounts of urine
How many times incontinent 2
MODERATE amount urine
Vital Signs
Temp Pulse Resp BP Pulse Ox
97.8 F 84 16 115/76 97
08/25/24 07:52 08/25/24 07:52 08/25/24 07:52 08/25/24 07:52 08/25/24 07:52
Lab Results
08/25/24 06:02
08/25/24 06:02
Calcium 8.4 mg/dl (8.4-10.2) 08/25/24 06:02
Phosphorus 4.5 mg/dl (2.5-4.5) 08/23/24 07:07
Magnesium 2.0 mg/dl (1.6-2.3) 08/23/24 07:07
Total Bilirubin 0.5 mg/dl (0.2-1.3) 08/25/24 06:02
AST 100 U/L (14-36) H 08/25/24 06:02
ALT 181 U/L (0-35) H 08/25/24 06:02
Alkaline Phosphatase 107 U/L (38-126) 08/25/24 06:02
Total Protein 5.4 g/dl (6.3-8.2) L 08/25/24 06:02
Albumin 2.8 g/dl (3.5-5.0) L 08/25/24 06:02
Physical Exam
-
Gen: NAD
Abd: soft, nt, distention much improved
Patient has a valdes catheter: No
Patient has a central line: Yes
[2024-08-25 12:02] LABS: Glucose - Point of Care 126 mg/dl (70-99)
--- NOTE | 2024-08-25 12:11 | CM ---
CM reviewed chart, reviewed with Hospitalist, potential discharge tomorrow. Patient seen ambulating halls. NG tube removed, discontinue TPN, advance to full liquids. Patient will continue services with Arun when dicharged. CM will continue to
follow for all discharge planning needs.
Plan; home with family, BUFFY Dias
--- NOTE | 2024-08-25 14:25 | VATNOTE ---
Pt requested that port reaccess be deferred because she is possibly going home tomorrow. Will reassess tomorrow.
[2024-08-25 15:36] VITALS: BP 102/58
[2024-08-25] MEDS: LEVOTHROID 84 MCG IV (18:52)
[2024-08-25 18:54] LABS: Glucose - Point of Care 97 mg/dl (70-99)
[2024-08-25 21:35] LABS: Glucose - Point of Care 133 mg/dl (70-99)
[2024-08-25 23:00] VITALS: BP 98/61
[2024-08-26 04:02] LABS: Hematocrit 21.6 % (37.0-47.0); Hemoglobin 7.6 g/dL (12.0-16.0); Mean Corp Hgb Conc. 35.2 g/dL (33.0-37.0); Mean Corpuscular Hgb 32.6 pg (27.0-31.0); Mean Corpuscular Volume 92.7 fL (81.0-99.0); Mean Platelet Volume 10.6 fL (7.4-10.4); Platelet Count 385 10^3/uL (130-400); Red Blood Cell Count 2.33 10^6/uL (4.20-5.40); Red Cell Dist. Width 14.6 % (11.5-14.5); White Blood Cell Count 5.4 10^3/uL (4.8-10.8)
[2024-08-26 04:21] LABS: ALT (SGPT) 151 U/L (0-35); AST (SGOT) 61 U/L (14-36); Albumin 2.7 g/dl (3.5-5.0); Alkaline Phosphatase 129 U/L (38-126); Blood Urea Nitrogen 34 mg/dl (7-17); Calcium 8.7 mg/dl (8.4-10.2); Carbon Dioxide 23 mmol/L (22-30); Chloride 104 mmol/L (98-107); Estimated Creatinine Clearance 35 ml/min; Glucose 89 mg/dl (70-99); Potassium 4.8 mmol/L (3.5-5.1); Sodium 132 mmol/L (135-145); Total Bilirubin 0.4 mg/dl (0.2-1.3); Total Protein 5.4 g/dl (6.3-8.2); eGFR 49.31
[2024-08-26 05:29] VITALS: BMI 16.3
--- NOTE | 2024-08-26 07:32 | W.PN.GS2 ---
Addendum entered and electronically signed by Jamal Conte MD 08/26/24 11:01:
Patient seen and examined in follow-up with surgical aides teacher. Agree with documented progress note with additions noted here.
Patient reports some crampiness discomfort and bloating last evening similar to her previous obstructive symptoms.
She subsequently was able to pass flatus and had improvement.
Last bowel movement yesterday, prior to that was a couple days ago.
Feeling more comfortable this a.m.
AFVSS
NAD AAO x 3
ABD: Soft, not distended but there is some tympany on percussion. No tenderness.
Repeat abdominal x-ray today shows overall improvement from previous small bowel distention but there are continued air-fluid levels and gastric distention. Contrast slowly progressing through colon
Assessment/plan: 69-year-old female with early postoperative partial small bowel obstruction.
While there are signs of GI recovery there is likely a continued moderate partial obstructive component.
Advised patient that it is unlikely we will be able to advance her pass a full liquid diet.
Continue to monitor to ensure she can take in enough full liquids with supplements to ensure adequate hydration and nutritional intake.
Patient should be getting Ensure twice daily as ordered
Start MiraLAX daily
Monitor today for tolerance of full liquid intake
Repeat abdominal x-ray tomorrow
Possible DC in next 24 to 36 hours depending on tolerance of full liquid intake
Original Note:
Today's Communication / Plan
-
Abdominal x-ray
Add MiraLAX
Continue full liquid diet
Assessment / Plan
-
Impression
Patient is a 69 yo F with multiple abdominal surgeries , s/p laparoscopic converted to open lysis of adhesions with resection of necrotic bowel on 07/12/2024, p/w obstructive symptoms admitted 5 days ago. Patient continues to produce urine output
through the NG tube.
Progress of her bowel function in terms of imaging
CT abdomen pelvis without oral contrast (08/14): mild small bowel dilation concerning for an early SBO versus ileus, her anastomosis looks patent as there is fluid going through it. Transition point appears to be in the pelvis.
SBFT (08/16): continued SB dilation, no air fluid levels, no contrast into colon
X-ray Abd (08/17): continued SB dilation, no air fluid levels, no contrast into colon, no air into descending colon or rectum
X-ray Abd (08/23): improved SB dilation, contrast into colon
On lab review
No leukocytosis
Hemoglobin stable
Normal platelet count
Mild hyponatremia
Elevated creatinine possibly secondary to decreased intake
Transaminitis
Clinical and radiographic improvement. Discussed with the patient that there is persistent small bowel obstruction and she would likely remain on liquid diet for many months and patient demonstrates understanding and is agreeable to do that.
Plan
-- Continue full liquid diet along with Ensure twice daily
-- Add MiraLAX for constipation
-- Abdominal x-ray
--Replace electrolytes prn
--Pain control: prn, minimize
--Hep SQ for VTE ppx
--OOB/ambulate
Subjective Data
-
Date of Service: August 26, 2024
Patient seen at bedside, lying comfortably in bed
Overnight, she woke up in the middle of the night around 3 AM with complaint of feeling sick, she went to the bathroom passed flatus and then came out and took sips of water, felt fine
This morning, denies any abdominal cramping but feels scared as she had the symptoms recurring over the last few weeks
Had a bowel movement yesterday
Objective Data
-
Intake and Output
08/25/24 08/26/24 08/27/24
06:59 06:59 06:59
Intake Total 480 / 480 1200 / 1200
Balance 480 / 480 1200 / 1200
Intake:
Oral fluids 480 / 480 1200 / 1200
Other:
Number of approximated MODERATE 3 3
amounts of urine
Number of approximated LARGE 1
amounts of urine
How many times incontinent 2
MODERATE amount urine
Vital Signs
Temp Pulse Resp BP Pulse Ox
98.5 F 89 14 98/61 97
08/25/24 23:00 08/25/24 23:00 08/25/24 23:00 08/25/24 23:00 08/25/24 23:00
Lab Results
08/26/24 03:45
08/26/24 03:45
Calcium 8.7 mg/dl (8.4-10.2) 08/26/24 03:45
Phosphorus 4.5 mg/dl (2.5-4.5) 08/23/24 07:07
Magnesium 2.0 mg/dl (1.6-2.3) 08/23/24 07:07
Total Bilirubin 0.4 mg/dl (0.2-1.3) 08/26/24 03:45
AST 61 U/L (14-36) H 08/26/24 03:45
ALT 151 U/L (0-35) H 08/26/24 03:45
Alkaline Phosphatase 129 U/L (38-126) H 08/26/24 03:45
Total Protein 5.4 g/dl (6.3-8.2) L 08/26/24 03:45
Albumin 2.7 g/dl (3.5-5.0) L 08/26/24 03:45
Physical Exam
-
No apparent distress, appears very weak and fragile
Chest clear to auscultation bilaterally
Abdomen soft, mildly distended, nontender, normal bowel sounds
Patient has a valdes catheter: No
Patient has a central line: No
[2024-08-26 08:00] VITALS: BP 125/78
[2024-08-26] MEDS: HEPARIN 5000 UNITS SC ×2 (08:35→20:20)
--- NOTE | 2024-08-26 10:02 | W.PN.HOSP.TC ---
Today's Communication/Plan
-
Continue full liquid with Ensure
IV fluid
Assessment / Plan
Assessment / Plan
Ncgmgimoit-72-cvto-old female with PMHx significant for oral squamous cell carcinoma s/p resection, recurrent small bowel resections (2004, 2009, 2010), with most recent hospital admission at from 07/12 to 07/21/2024-for necrotic small bowel
resection secondary to adhesions presents to the hospital for constipation cramping abdominal pain nausea and vomiting with no flatus for 2 days-diagnosed to have recurrent small bowel obstruction.
Plan
#Small bowel obstruction
Continue to be on full liquids with Ensure, twice daily
Discontinue TPN
Replete electrolytes as needed
Discontinue PPI
General surgery on board
Analgesics/antiemetics prn
#Acute pancreatitis
Resolved
#Protein calorie malnutrition
Nutrition consulted
#BRADEN
Serum creatinine improving with IV hydration
1.6 >>> 1.2
IVF
Trend serum creatinine.
#Hyperkalemia
Resolved with hydration.
Monitor BMP
#Normocytic anemia
7.6
Likely secondary to chronic disease
Continue to trend hemoglobin.
Will transfuse if less than 7
#Essential hypertension
Hydralazine as needed
#Hyperlipidemia-
Hold statin for now.
Hypothyroidism-
IV levothyroxine at 84 mcg.
DVT prophylaxis-
Heparin. Subcu
CODE STATUS-
Full code.
Holding discharge for today
Anticipated Discharge: 24 - 48 hours
Subjective/Interval History
-
Date of Service: August 26, 2024
Patient reports having an episode of nausea at midnight, abdominal discomfort, but no vomiting. She passed flatus, no bowel movement. She is still on full liquid, tolerating well.
Objective Data
-
Labs:
Laboratory Results
08/26/24
03:45
WBC 5.4
Hgb 7.6 L
Hct 21.6 L
Plt Count 385
Sodium 132 L
Potassium 4.8
Chloride 104
Carbon Dioxide 23
BUN 34 H
Creatinine 1.2 H
Glucose 89
Calcium 8.7
Total Bilirubin 0.4
AST 61 H
ALT 151 H
Alkaline Phosphatase 129 H
Vital Signs:
Vital Signs
Temp Pulse Resp BP Pulse Ox
97.8 F 104 16 125/78 97
08/26/24 08:00 08/26/24 08:00 08/26/24 08:00 08/26/24 08:00 08/26/24 08:00
I&O
08/25/24 08/26/24 08/27/24
06:59 06:59 06:59
Intake Total 480 / 480 1200 / 1200
Balance 480 / 480 1200 / 1200
Physical Exam
-
General: No Apparent Distress
HEENT: Normocephalic and Atraumatic
Respiratory: Clear to Auscultation
Cardiac: Regular Rhythm and S1/S2
GI: Soft, Nontender and Nondistended; Negative Normal Bowel Sounds
Skin: Warm and Dry
Neuro: Awake, Alert, Oriented and AO x 3
[2024-08-26] MEDS: MIRALAX 17 GRAMS PO (11:18)
[2024-08-26] MEDS: NSS 1000 IV ×2 (11:18→21:24)
--- NOTE | 2024-08-26 11:26 | CM ---
CM reviewed chart, reviewed with Hospitalist, likely for d/c tomorrow. Patient seen ambulating halls. Patient remains on full liquid diet. CM will continue to follow for all discharge planning needs.
Plan; home with BU[facility] Dias when stable
[2024-08-26 16:02] VITALS: BP 109/64
[2024-08-26] MEDS: LEVOTHROID 84 MCG IV (17:21)
[2024-08-26 21:29] LABS: Glucose - Point of Care 93 mg/dl (70-99)
[2024-08-26 23:36] VITALS: BP 120/61
[2024-08-27] MEDS: NSS 1000 IV ×2 (06:32→17:00)
[2024-08-27 07:00] VITALS: BP 145/85
--- NOTE | 2024-08-27 07:34 | W.PN.GS2 ---
Addendum entered and electronically signed by Jayson Nettles MD 08/27/24 12:00:
I saw and examined the patient independently.
The resident's documentation was reviewed and I agree with the note, assessment and plan except where noted below.
Comment: 69-year-old female here with a resolving recurrent small bowel obstruction, Now with return of bowel function still having some GI issues.
Will do a calorie count to ensure adequate nutrition before discharge.
Original Note:
Today's Communication / Plan
-
Anticipated discharge in next 24 hours on full liquid diet with Ensure
Calorie count on discharge to ensure adequate nutrition
Assessment / Plan
-
Impression
Patient is a 69 yo F with multiple abdominal surgeries in 2004, 2009 and 2010, most recent s/p laparoscopic converted to open lysis of adhesions with resection of necrotic bowel on 07/12/2024, p/w obstructive symptoms admitted 5 days ago.
Progress of her bowel function in terms of imaging
CT abdomen pelvis without oral contrast (08/14): mild small bowel dilation concerning for an early SBO versus ileus, her anastomosis looks patent as there is fluid going through it. Transition point appears to be in the pelvis.
SBFT (08/16): continued SB dilation, no air fluid levels, no contrast into colon
X-ray Abd (08/17): continued SB dilation, no air fluid levels, no contrast into colon, no air into descending colon or rectum
X-ray Abd (08/23): improved SB dilation, contrast into colon
Abdominal x-ray (08/26): Shows overall radiographic improvement in bowel distention, but has gastric distention, and small bowel with dilation but the contrast passes through the colon
On lab review
No leukocytosis
Hemoglobin stable
Normal platelet count
Mild hyponatremia
BRADEN resolved
Transaminitis
Fresh labs pending
Clinical and radiographic improvement. Discussed with the patient that there is persistent small bowel obstruction and she would likely remain on liquid diet for many months and patient demonstrates understanding and is agreeable to do that.
Plan
-- Continue full liquid diet along with Ensure twice daily
-- Add MiraLAX for constipation
--Repeat imaging today
--Replace electrolytes prn
--Pain control: prn, minimize
--Hep SQ for VTE ppx
--OOB/ambulate
Subjective Data
-
Date of Service: August 27, 2024
Patient seen on bedside, lying comfortably in bed
Overnight events: Yesterday afternoon after lunch she was very uncomfortable, felt bloated and stuffed up and was worried that she might throw up. She went to the bathroom and had a bowel movement which was basically a pellet, soft in consistency
which she had to strain a lot to pass out.
She did not order dinner because she was scared
This morning, she feels fine but is worried that she would end up back in the hospital if she continues to eat
Objective Data
-
Intake and Output
08/26/24 08/27/24 08/28/24
06:59 06:59 06:59
Intake Total 1200 / 1200 960 / 960
Balance 1200 / 1200 960 / 960
Intake:
Oral fluids 1200 / 1200 960 / 960
Other:
Number of approximated MODERATE 3 2
amounts of urine
Number of approximated LARGE 1
amounts of urine
Vital Signs
Temp Pulse Resp BP Pulse Ox
98 F 88 20 120/61 96
08/26/24 23:36 08/26/24 23:36 08/26/24 23:36 08/26/24 23:36 08/26/24 23:36
Calcium 8.7 mg/dl (8.4-10.2) 08/26/24 03:45
Phosphorus 4.5 mg/dl (2.5-4.5) 08/23/24 07:07
Magnesium 2.0 mg/dl (1.6-2.3) 08/23/24 07:07
Total Bilirubin 0.4 mg/dl (0.2-1.3) 08/26/24 03:45
AST 61 U/L (14-36) H 08/26/24 03:45
ALT 151 U/L (0-35) H 08/26/24 03:45
Alkaline Phosphatase 129 U/L (38-126) H 08/26/24 03:45
Total Protein 5.4 g/dl (6.3-8.2) L 08/26/24 03:45
Albumin 2.7 g/dl (3.5-5.0) L 08/26/24 03:45
Physical Exam
-
No apparent distress, very weak and fragile
Abdomen soft, nontender, normal bowel sounds
Chest bilaterally clear to auscultation
Judgment and insight good
Patient has a valdes catheter: No
Patient has a central line: No
[2024-08-27] MEDS: HEPARIN 5000 UNITS SC ×2 (07:45→20:21)
[2024-08-27] MEDS: MIRALAX 17 GRAMS PO (07:45)
--- NOTE | 2024-08-27 07:56 | W.PN.HOSP.TC ---
Today's Communication/Plan
-
Full liquids with Ensure
Assessment / Plan
Assessment / Plan
Cbzzmtnbdy-16-hijb-old female with PMHx significant for oral squamous cell carcinoma s/p resection, recurrent small bowel resections (2004, 2009, 2010), with most recent hospital admission at from 07/12 to 07/21/2024-for necrotic small bowel
resection secondary to adhesions presents to the hospital for constipation cramping abdominal pain nausea and vomiting with no flatus for 2 days-diagnosed to have recurrent small bowel obstruction.
Plan
#Small bowel obstruction
Continue to be on full liquids with Ensure, twice daily
MiraLAX for constipation
Replete electrolytes as needed
General surgery on board
Analgesics/antiemetics prn
#Acute pancreatitis
Resolved
#Protein calorie malnutrition
Nutrition consulted
#BRADEN
Serum creatinine improving with IV hydration
1.6 >>> 1.2
IVF
Trend serum creatinine.
#Hyperkalemia
Resolved with hydration.
Monitor BMP
#Normocytic anemia
7.7
Likely secondary to chronic disease
Continue to trend hemoglobin.
Will transfuse if less than 7
#Essential hypertension
Hydralazine as needed
#Hyperlipidemia-
Hold statin for now.
Hypothyroidism-
IV levothyroxine at 84 mcg.
DVT prophylaxis-
Heparin. Subcu
CODE STATUS-
Full code.
Likely will discharge today if patient tolerates full liquids with Ensure
Anticipated Discharge: Today
Subjective/Interval History
-
Date of Service: August 27, 2024
Patient reports an episode of discomfort, bloating yesterday evening after she had her lunch. After some time she had a bowel movement, she felt relieved.
Objective Data
-
Labs:
Laboratory Results
08/27/24
07:38
WBC Pending
Hgb Pending
Hct Pending
Plt Count Pending
Sodium Pending
Potassium Pending
Chloride Pending
Carbon Dioxide Pending
BUN Pending
Creatinine Pending
Glucose Pending
Calcium Pending
Total Bilirubin Pending
AST Pending
ALT Pending
Alkaline Phosphatase Pending
Vital Signs:
Vital Signs
Temp Pulse Resp BP Pulse Ox
98.5 F 95 18 145/85 97
08/27/24 07:00 08/27/24 07:00 08/27/24 07:00 08/27/24 07:00 08/27/24 07:00
I&O
08/26/24 08/27/24 08/28/24
06:59 06:59 06:59
Intake Total 1200 / 1200 960 / 960
Balance 1200 / 1200 960 / 960
Physical Exam
-
General: No Apparent Distress
HEENT: Normocephalic and Atraumatic
Respiratory: Clear to Auscultation
Cardiac: Regular Rhythm and S1/S2
GI: Soft, Nontender, Nondistended and Normal Bowel Sounds
Skin: Warm and Dry
Neuro: Awake, Alert, Oriented and AO x 3
Psych: Calm
[2024-08-27 08:12] LABS: Hemoglobin 7.7 g/dL (12.0-16.0); Mean Corp Hgb Conc. 33.5 g/dL (33.0-37.0); Mean Corpuscular Hgb 32.2 pg (27.0-31.0); Mean Corpuscular Volume 96.2 fL (81.0-99.0); Mean Platelet Volume 11.2 fL (7.4-10.4); Platelet Count 362 10^3/uL (130-400); Red Blood Cell Count 2.39 10^6/uL (4.20-5.40); Red Cell Dist. Width 15.1 % (11.5-14.5); White Blood Cell Count 4.5 10^3/uL (4.8-10.8)
[2024-08-27 08:54] LABS: ALT (SGPT) 105 U/L (0-35); AST (SGOT) 35 U/L (14-36); Albumin 2.8 g/dl (3.5-5.0); Alkaline Phosphatase 117 U/L (38-126); Blood Urea Nitrogen 22 mg/dl (7-17); Calcium 8.8 mg/dl (8.4-10.2); Carbon Dioxide 23 mmol/L (22-30); Chloride 109 mmol/L (98-107); Estimated Creatinine Clearance 38 ml/min; Glucose 85 mg/dl (70-99); Potassium 4.5 mmol/L (3.5-5.1); Sodium 138 mmol/L (135-145); Total Bilirubin 0.5 mg/dl (0.2-1.3); Total Protein 5.6 g/dl (6.3-8.2); eGFR 54.73
--- NOTE | 2024-08-27 13:12 | CM ---
CM reviewed chart, reviewed with Hospitalist, potential discharge over weekend. Patient seen bedside, IMM reviewed verbally, patient declines need for copy, placed in chart. CM will continue to follow for all discharge planning needs.
Plan; home with family when stable, Arun BAER
Arun MAGDALENO
[2024-08-27 15:09] VITALS: BP 139/75
[2024-08-27] MEDS: LEVOTHROID 84 MCG IV (17:02)
[2024-08-27 23:38] VITALS: BP 133/76
[2024-08-28 07:00] VITALS: BP 142/79
[2024-08-28 07:09] LABS: Hematocrit 21.5 % (37.0-47.0); Hemoglobin 7.4 g/dL (12.0-16.0); Mean Corp Hgb Conc. 34.4 g/dL (33.0-37.0); Mean Corpuscular Hgb 32.5 pg (27.0-31.0); Mean Corpuscular Volume 94.3 fL (81.0-99.0); Mean Platelet Volume 10.9 fL (7.4-10.4); Platelet Count 348 10^3/uL (130-400); Red Blood Cell Count 2.28 10^6/uL (4.20-5.40); Red Cell Dist. Width 15.1 % (11.5-14.5); White Blood Cell Count 8.2 10^3/uL (4.8-10.8)
[2024-08-28 07:12] LABS: ALT (SGPT) 73 U/L (0-35); AST (SGOT) 24 U/L (14-36); Albumin 2.6 g/dl (3.5-5.0); Alkaline Phosphatase 106 U/L (38-126); Blood Urea Nitrogen 14 mg/dl (7-17); Calcium 8.7 mg/dl (8.4-10.2); Carbon Dioxide 24 mmol/L (22-30); Chloride 110 mmol/L (98-107); Estimated Creatinine Clearance 41 ml/min; Glucose 91 mg/dl (70-99); Potassium 4.7 mmol/L (3.5-5.1); Sodium 136 mmol/L (135-145); Total Bilirubin 0.4 mg/dl (0.2-1.3); Total Protein 5.3 g/dl (6.3-8.2); eGFR > 60.00
[2024-08-28 08:13] LABS: Iron 40 ug/dl (37-170)
[2024-08-28 08:24] LABS: Percent Saturation 19 % (20-50); Total Iron Binding Capacity 210 ug/dl (265-497)
[2024-08-28] MEDS: HEPARIN 5000 UNITS SC ×2 (08:50→20:19)
[2024-08-28] MEDS: MIRALAX 17 GRAMS PO (08:50)
[2024-08-28 09:20] LABS: Folate > 20.0 ng/ml (2.76-20); Vitamin B12 416 pg/ml (239-931)
[2024-08-28] MEDS: OMNIPAQUE 50 ML PO (10:44)
--- NOTE | 2024-08-28 10:50 | W.PN.GS2 ---
Addendum entered and electronically signed by Jamal Conte MD 08/28/24 11:14:
Patient seen and examined with surgical REIMBURSEMENT CONSULTANT. Agree with documented progress note.
Although we are doing calorie counts going forward it is still uncertain if partial obstruction is going to allow adequate nutritional intake.
Passing flatus on occasion. No bowel movement in the past couple days.
Marginally doing satisfactory with full liquid diet
AFVSS
NAD AAO x 3
ABD soft and no significant distention today. Very minimal tenderness.
A/P: 69-year-old female with early postoperative partial small bowel obstruction.
Challenging situation as uncertain degree of partial obstruction that remains persistent and how much nutritional intake patient will tolerate. She remains moderately symptomatic from a pSBO standpoint and subjectively feels as though she is still
obstructed. In the background she has a known history of metastatic ovarian cancer and suspicion for potential abdominal metastasis based on last operative findings although intraoperative biopsy was negative for malignancy.
We discussed risks and benefits of various options including considering surgical intervention (now 7 weeks postop) or ongoing care with full liquids +/- TPN at home over the next 4 to 5 weeks to see if further improvement with a 12-week course of
postoperative nonoperative management.
In an effort to help further guide her decisions we will repeat her CT imaging with oral contrast to evaluate for degree of potential persistent pSBO and presence of a defined transition point.
Original Note:
Today's Communication / Plan
-
Ct abd/pelvis
Assessment / Plan
-
Impression
Patient is a 69 yo F with multiple abdominal surgeries in 2004, 2009 and 2010, most recent s/p laparoscopic converted to open lysis of adhesions with resection of necrotic bowel on 07/12/2024, p/w early adhesive pSBO although there is the possibility
of malignant etiology as well given her h/o metastatic ovarian cancer (CA125 79.1). Was planning resumption of chemo this summer with her oncologist at [facility].
CT abdomen pelvis without oral contrast (08/14): mild small bowel dilation concerning for an early SBO versus ileus, her anastomosis looks patent as there is fluid going through it. Transition point appears to be in the pelvis.
SBFT (08/16): continued SB dilation, no air fluid levels, no contrast into colon
X-ray Abd (08/17): continued SB dilation, no air fluid levels, no contrast into colon, no air into descending colon or rectum
X-ray Abd (08/23): improved SB dilation, contrast into colon
Improved from admission but still with poor PO intake/tolerance. Follow up Xrays with retained contrast in the colon and persistent mild sb distention
Off TPN and on FLD
AFVSS
Labs stable
Plan
-- Continue full liquid diet along with Ensure twice daily
-- Calorie count started to ensure she is meeting nutritional needs
-- MiraLAX for constipation
-- Check CT abd/pelvis with IV/Po contrast today in further evaluation
-- Hep SQ for VTE ppx
-- OOB/ambulate
-- HTN management as per primary, coreg continues on hold at this time
Subjective Data
-
Date of Service: August 28, 2024
Patient seen and examined at bedside with Dr. Conte. OOB to chair. Tolerating slow PO intake. Still feels that her issues have not completely resolved. Early satiety/bloating with meals. Denies n/v. Continues to pass some flatus.
Objective Data
-
Intake and Output
08/27/24 08/28/24 08/29/24
06:59 06:59 06:59
Intake Total 960 / 960 540 / 540
Balance 960 / 960 540 / 540
Intake:
Oral fluids 960 / 960 540 / 540
Other:
Number of approximated MODERATE 2 4
amounts of urine
Vital Signs
Temp Pulse Resp BP Pulse Ox
98.2 F 95 16 142/79 95
08/28/24 07:00 08/28/24 07:00 08/28/24 07:00 06/14/25 07:00 08/28/24 07:00
Lab Results
08/28/24 06:40
08/28/24 06:40
Calcium 8.7 mg/dl (8.4-10.2) 08/28/24 06:40
Phosphorus 4.5 mg/dl (2.5-4.5) 08/23/24 07:07
Magnesium 2.0 mg/dl (1.6-2.3) 08/23/24 07:07
Total Bilirubin 0.4 mg/dl (0.2-1.3) 08/28/24 06:40
AST 24 U/L (14-36) 08/28/24 06:40
ALT 73 U/L (0-35) H 08/28/24 06:40
Alkaline Phosphatase 106 U/L (38-126) 08/28/24 06:40
Total Protein 5.3 g/dl (6.3-8.2) L 08/28/24 06:40
Albumin 2.6 g/dl (3.5-5.0) L 08/28/24 06:40
Physical Exam
-
NAD, underweight
ABD soft, mild distention, nt
Patient has a valdes catheter: No
Patient has a central line: Yes ([facility]
--- NOTE | 2024-08-28 11:25 | W.PN.HOSP.TC ---
Today's Communication/Plan
-
Follow-up repeat CT
Continue MiraLAX
Serial abdomen exams
Full liquids with Ensure indefinitely
Surgery appreciated
Assessment / Plan
Assessment / Plan
#Recurrent small bowel obstruction
#H/O SBO with resection and HUGO
-Suspected adhesive disease, presented 14 days ago with recurrent
-S/p NG tube and course of TPN, bowel status has improved though not her baseline
-Abdomen x-ray showing poor transit though most recent shows some worsening dilation
-Surgery following, stable for discharge from their perspective, patient still with anxiety
-Continue with MiraLAX and serial abdomen exams
-Continue full liquid diet indefinitely
-Surgery ordered repeat CT with contrast, follow-up results
#Severe protein calorie malnutrition
-BMI 16.3, was n.p.o. here for multiple days due to small bowel obstruction as above
-Likely multifactorial with chronic disease and period of n.p.o. here
-Currently on Ensure with meals and full liquid diet with calorie count
#Normocytic anemia
-Has anemia of chronic disease related to previous ovarian cancer and other chronic illness
-Hemoglobin has downtrended some here, suspected to be due to nutritional status
-Will check iron studies, B12 and folate; replete if needed
-Trend CBC and monitor for bleeding
#Essential hypertension
-No known history of hypertensive systemic disease
-Remains on home carvedilol and lisinopril
-Continue as needed hydralazine
#Dyslipidemia
-No known history of ASCVD
-Home meds include low-dose atorvastatin
#Hypothyroidism
-Unclear cause, Home regimen includes levothyroxine 84 mcg
-No signs of thyroid dysfunction at this time
#Ovarian cancer s/p MARK
#H/O oral cancer
Diet: Full liquids, Ensure with meals
DVT prophylaxis: SQ heparin
CODE STATUS: Full code
Anticipated Discharge: Within 24 hours
Subjective/Interval History
-
Date of Service: August 28, 2024
Seen and examined at the bedside. No acute events reported overnight. AFVSS this morning
Abdomen x-ray showing stool burden in the left colon, some bowel loop dilation. Has not had bowel movement
Denies any abdomen pain, nausea or vomiting. Anxious about inability to pass stool
Objective Data
-
Labs:
Laboratory Results
08/28/24
06:40
WBC 8.2
Hgb 7.4 L
Hct 21.5 L
Plt Count 348
Sodium 136
Potassium 4.7
Chloride 110 H
Carbon Dioxide 24
BUN 14
Creatinine 1.0
Glucose 91
Calcium 8.7
Total Bilirubin 0.4
AST 24
ALT 73 H
Alkaline Phosphatase 106
Vital Signs:
Vital Signs
Temp Pulse Resp BP Pulse Ox
98.2 F 95 16 142/79 95
08/28/24 07:00 08/28/24 07:00 08/28/24 07:00 08/28/24 07:00 08/28/24 07:00
I&O
08/27/24 08/28/24 08/29/24
06:59 06:59 06:59
Intake Total 960 / 960 540 / 540
Balance 960 / 960 540 / 540
Review of Systems
-
History Source: Patient
All other systems: Reviewed and negative
Physical Exam
-
General: Well Developed, No Apparent Distress and Cachectic
HEENT: Normocephalic, Atraumatic, Moist Mucous Membranes and Anicteric
Respiratory: Clear to Auscultation and Non Labored Respirations; Negative Accessory Resp Muscle Use
Cardiac: Regular Rhythm and S1/S2; Negative Murmur, Rub or Gallop
GI: Soft, Nontender and Nondistended; Negative Normal Bowel Sounds (Reduced bowel sounds) or Organomegaly
Musculoskeletal: No Clubbing, No Cyanosis and No Edema
Skin: Warm and Dry; Negative Rash or Jaundice
Neuro: AO x 3 and Nonfocal/Grossly Intact; Negative Tremors
Psych: Anxious
Data Reviewed
-
Labs: Labs Reviewed by me and Discussed with Patient
[2024-08-28 15:07] VITALS: BP 147/78
[2024-08-28] MEDS: LEVOTHROID 84 MCG IV (17:24)
[2024-08-28] MEDS: ZOFRAN 4 MG IV (18:30)
[2024-08-28 23:05] VITALS: BP 122/68
[2024-08-29 05:50] VITALS: BMI 16.6
[2024-08-29 06:17] LABS: Hematocrit 21.2 % (37.0-47.0); Hemoglobin 7.3 g/dL (12.0-16.0); Mean Corp Hgb Conc. 34.4 g/dL (33.0-37.0); Mean Corpuscular Hgb 32.6 pg (27.0-31.0); Mean Corpuscular Volume 94.6 fL (81.0-99.0); Mean Platelet Volume 10.8 fL (7.4-10.4); Platelet Count 330 10^3/uL (130-400); Red Blood Cell Count 2.24 10^6/uL (4.20-5.40); Red Cell Dist. Width 14.7 % (11.5-14.5); White Blood Cell Count 9.5 10^3/uL (4.8-10.8)
[2024-08-29 06:45] LABS: Blood Urea Nitrogen 14 mg/dl (7-17); Calcium 8.4 mg/dl (8.4-10.2); Carbon Dioxide 23 mmol/L (22-30); Chloride 104 mmol/L (98-107); Estimated Creatinine Clearance 38 ml/min; Glucose 93 mg/dl (70-99); Potassium 4.4 mmol/L (3.5-5.1); Sodium 133 mmol/L (135-145); eGFR 54.73
[2024-08-29 07:01] VITALS: BP 139/86
--- NOTE | 2024-08-29 07:42 | W.DCSUMMARY ---
Discharge Summary
Discharge Data
Date of Admission: 08/14/24
Date of Discharge: 08/29/24
-
Pending Results: No
Hospital Course
Discharging Physician : Dr. Campos.
Disposition : Home
Principal Discharge diagnosis : Small bowel Obstruction
Hospital Course : 69-year-old female past medical history of recurrent small bowel obstruction, protein calorie malnutrition, chronic anemia, metastatic ovarian cancer, oral cancer, hypertension, hyperlipidemia, hypothyroidism, presenting with
abdominal discomfort, vomiting, constipation. Denies significant pain. Denies fevers or chills.She was recently admitted from 07/12 to 08/03 for acute bowel obstruction requiring bowel resection. This was complicated by midline wound infection
treated with antibiotics. General surgery consulted. CT abdomen pelvis without oral contrast demonstrated mild small bowel dilation concerning for an early SBO versus ileus, her anastomosis looks patent as there is fluid going through it.
Transition point appears to be in the pelvis. NG tube placed successfully at bedside, by the surgical team. Patient started on IV fluids, NPO, electrolytes repleted as needed. Patient developed BRADEN, hyperkelemia which resolved with IVFluids. SBFT
x-ray confirmed persistent obstruction. No passage of flatus or BM. Discussed options of continued medical management versus surgical management, decided to go with conservative measures. NGT with still significant output, and patient was NPO for
sometime, adding to her PCM, so patient was started on TPN on 08/18/24. Patient had a BM and was passing flatus, serial abd x rays showed improvement of her SBO, clinically patient felt better. NGT discontinued, diet advanced as tolerated to full
liquids. TPN discontinued on 08/24/24.All her chronic conditions have been managed during her hospital stay. Patient is anemic, her Hb levels monitored regularly. Will need iron supplementation at discharge. She will on full liquids with Ensure,
twice daily at discharge, until seen by general surgery in 1- 2 weeks. Monitor CBC in 1 week.
Discharge Plan
-
Patient Disposition: Home (Routine Discharge)
Discharge Diagnosis/Procedures: Small bowel obstruction
Condition: Fair
Diet: Supplements
Additional Diets: Full liquids with supplements
Activity: As tolerated
Driving Restrictions: As prior to admission
Bathing Restrictions: None
Blood Work: CBC 1 week after discharge
Activity Restrictions/Additional Instructions:
Schedule follow-up appointment with your family doctor to be seen in office within 1 to 2 weeks of discharge
Follow-up with surgery in office in 2 to 3 weeks
Instructions: Full liquid diet
Referrals:
Larissa Reynoso DO [Family Provider, Family Practice]
Jayson Nettles MD [Active, Surgical] - in two to three weeks
Prescriptions:
Continued
carvedilol 6.25 MG tablet
6.25 mg PO BID
atorvastatin 10 mg Tablet
10 mg PO HS
levothyroxine 112 mcg Tablet
112 mcg PO DAILY
polyethylene glycol 3350 [Miralax] 17 gram Powder In Packet
17 g PO DAILYPRN PRN (Reason: constipation)
Held
lisinopril 10 mg Tablet
10 mg PO DAILY
Hold Instructions: Until you see your family doctor in office
Patient Comments:
patient says that she is taking this only occasionally because her BP has been very low.
Discharge Date and Time
Print Language: MOROCCAN
[2024-08-29] MEDS: HEPARIN 5000 UNITS SC ×2 (07:58→20:19)
[2024-08-29] MEDS: MIRALAX 17 GRAMS PO (07:58)
[2024-08-29 08:19] LABS: Nucleated Red Blood Cells % 0 %
[2024-08-29 08:20] LABS: Absolute Neutrophils -Man Diff 6.2 10^3/uL (1.4-6.5); Band Neutrophils 2 % (0-3); Eosinophils 1 % (0-6); Lymphocytes 12 % (20-51); Monocytes 21 % (2-9); Segmented Neutrophils 64 % (42-75)
[2024-08-29 08:21] LABS: Platelets Checked Yes; Total Cells Counted 100
[2024-08-29 08:22] LABS: Hypochromasia 1+; Normal RBC Morphology No; Target Cells FEW
--- NOTE | 2024-08-29 11:41 | W.PN.HOSP.TC ---
Addendum entered and electronically signed by Montana Campos DO 08/29/24 13:57:
surgery with concern for recurrence of ovarian cancer for which she received treatment at [facility]. Recommending transfer there. Pt. dalton. Will contact [facility] transfer center to begin process
Original Note:
Today's Communication/Plan
-
Full liquids for now though low threshold to de-escalate
IV iron
Trend CBC
Surgery recs appreciated
Assessment / Plan
Assessment / Plan
#Recurrent small bowel obstruction
#Descending colon mass with obstruction
#H/O SBO with resection and HUGO
-Suspected adhesive disease, presented 14 days ago with recurrent
-S/p NG tube and course of TPN, bowel status has improved though not her baseline
-Abdomen x-ray showing poor transit though most recent shows some worsening dilation
-CT enterography with possible signs of colon carcinomatosis, repeat AXR with descending colon mass (?)
-Continue full liquid for now although low threshold to de-escalate back to CLD
-Continue with MiraLAX and serial abdomen exams
-Surgery following, recommendations appreciated
-May need GI consult for colonoscopy to obtain tissue diagnosis
#Severe protein calorie malnutrition
-BMI 16.3, was n.p.o. here for multiple days due to small bowel obstruction as above
-Likely multifactorial with chronic disease and period of n.p.o. here
-Currently on Ensure with meals and full liquid diet with calorie count
#Multifactorial anemia
-Has anemia of chronic disease related to previous ovarian cancer and other chronic illness
-Hemoglobin has downtrended some here, suspected to be due to nutritional status
-Iron studies with low TIBC and ferritin, likely AOCD with ILDA
-Trend CBC and monitor for bleeding
-Start IV iron
#Essential hypertension
-No known history of hypertensive systemic disease
-Remains on home carvedilol and lisinopril
-Continue as needed hydralazine
#Dyslipidemia
-No known history of ASCVD
-Home meds include low-dose atorvastatin
#Hypothyroidism
-Unclear cause, Home regimen includes levothyroxine 84 mcg
-No signs of thyroid dysfunction at this time
#Ovarian cancer s/p MARK
#H/O oral cancer
Diet: Full liquids, Ensure with meals
DVT prophylaxis: SQ heparin
CODE STATUS: Full code
Anticipated Discharge: > 48 hours
Subjective/Interval History
-
Date of Service: August 29, 2024
Seen and examined at the bedside. No acute events reported overnight. AFVSS this morning
Remains without bowel movement. Repeat x-ray of the abdomen today with signs of possible descending colon mass causing obstruction
She denies any complaints including abdomen pain, nausea, vomiting.
Objective Data
-
Labs:
Laboratory Results
08/29/24
05:35
WBC 9.5
Hgb 7.3 L
Hct 21.2 L
Plt Count 330
Sodium 133 L
Potassium 4.4
Chloride 104
Carbon Dioxide 23
BUN 14
Creatinine 1.1 H
Glucose 93
Calcium 8.4
Vital Signs:
Vital Signs
Temp Pulse Resp BP Pulse Ox
98.1 F 103 18 139/86 96
08/29/24 07:01 08/29/24 07:01 08/29/24 07:01 08/29/24 07:01 08/29/24 07:01
I&O
08/28/24 08/29/24 08/30/24
06:59 06:59 06:59
Intake Total 540 / 540 600 / 600
Balance 540 / 540 600 / 600
Review of Systems
-
History Source: Patient
All other systems: Reviewed and negative
Physical Exam
-
General: Well Developed, No Apparent Distress, Appears Chronically Ill and Cachectic
HEENT: Normocephalic, Atraumatic, Moist Mucous Membranes and Anicteric
Respiratory: Clear to Auscultation and Non Labored Respirations; Negative Accessory Resp Muscle Use
Cardiac: Regular Rhythm and S1/S2; Negative Murmur, Rub or Gallop
GI: Soft, Nontender, Normal Bowel Sounds and Distended (Mildly)
Musculoskeletal: No Clubbing, No Cyanosis and No Edema
Skin: Warm and Dry; Negative Rash or Jaundice
Neuro: AO x 3 and Nonfocal/Grossly Intact
Psych: Calm
Data Reviewed
-
Labs: Labs Reviewed by me and Discussed with Patient
--- NOTE | 2024-08-29 12:29 | W.DCSUMMARY ---
Addendum entered and electronically signed by Zohra Gooden MD 09/02/24 20:23:
Read, reviewed, and agree. See same day progress note for additional details. Time spent coordinating care, DC planning, review of DC plan of care with resident, transition of care, review of records in EMR, med rec, consults, notes, d/w
consultants, nursing, family, and CM = 31 minutes
Original Note:
Discharge Summary
Discharge Data
Date of Admission: 08/14/24
Date of Discharge: 09/02/24
-
Pending Results: No
Hospital Course
Disposition : [facility]
Discharging physician�Dr. Gooden, Dr. Love.
Principal Discharge diagnosis : Small bowel Obstruction, descending colon mass
Hospital Course : 69-year-old female past medical history of recurrent small bowel obstruction, protein calorie malnutrition, chronic anemia, metastatic ovarian cancer, oral cancer, hypertension, hyperlipidemia, hypothyroidism, presenting with
abdominal discomfort, vomiting, constipation. Denies significant pain. Denies fevers or chills.She was recently admitted from 07/12 to 08/03 for acute bowel obstruction requiring bowel resection. This was complicated by midline wound infection
treated with antibiotics. General surgery consulted. CT abdomen pelvis without oral contrast demonstrated mild small bowel dilation concerning for an early SBO versus ileus, her anastomosis looks patent as there is fluid going through it.
Transition point appears to be in the pelvis. NG tube placed successfully at bedside, by the surgical team. Patient started on IV fluids, NPO, electrolytes repleted as needed. Patient developed BRADEN, hyperkelemia which resolved with IVFluids. SBFT
x-ray confirmed persistent obstruction. No passage of flatus or BM. Discussed options of continued medical management versus surgical management, decided to go with conservative measures. NGT with still significant output, and patient was NPO for
sometime, adding to her PCM, so patient was started on TPN on 08/18/24. Patient had a BM and was passing flatus, serial abd x rays showed improvement of her SBO, clinically patient felt better. NGT discontinued, diet advanced as tolerated to full
liquids. TPN discontinued on 08/24/24, restarted again because she was calorie deficient. Surgery plan on sending her home with full liquids and Ensure twice daily and follow-up with them as outpatient before she advances her diet to solids. But
patient had worsening abdominal pain intermittently and radiological evidence of worsening SBO/descending colon mass. Patient's prior management of her ovarian cancer and bowel resection was at [facility] and she requested to be
transferred to [place]. Hospitalist and surgery has initiated the transfer, awaiting bed at [facility]. All her chronic conditions have been managed during her hospital stay. Patient is anemic, her Hb levels monitored regularly.
Patient was given IV iron 5/5 bags. Her hemoglobin dropped down to 7.2 and she was transfused with 1 PRBC. She is on full liquids with Ensure, twice daily, hemodynamically stable at the time of transfer on 09/02/2024.
CT abdomen/pelvis�08/14/2024�Moderate small bowel dilatation concerning for developing obstruction versus ileus. Improved in comparison to the previous exam. Considering the history of multiple previous surgeries, this is likely due to adhesions. The
transition point is not identified.
Mild free fluid in the pelvis. Improved
Abdominal x-ray�08/29/2024�
1. Mild distention of the ascending, transverse, and proximal descending colon secondary to a PARTIALLY OBSTRUCTING MALIGNANT MASS in the DISTAL DESCENDING COLON.
2. No radiographic evidence for small bowel obstruction.
Abdominal/pelvis CT�08/28/2024�
Although small bowel dilatation is less prominent in comparison to prior CT of August 14, 2024, there are numerous segments of thickening of the wall of the small bowel in the left abdomen and true pelvis as well as some likely adjacent thickening of
the wall of a segment of the descending colon. Although these findings may be on an inflammatory/infectious process, in light of the history of ovarian carcinoma, involvement with carcinomatosis cannot be excluded.
Small volume free fluid in the dependent true pelvis.
Discharge Plan
-
Patient Disposition: Acute Care Hospital
Condition: Fair
Discharge Orders:
Discharge Patient (As Directed); Ordered 08/29/24
Ordered By: Montana Campos
Discharge Date and Time
Discharge Date/Time: 09/02/24 19:06
Print Language: ALBANIAN
[2024-08-29] MEDS: FERRLECIT 110 MG IV (13:43)
--- NOTE | 2024-08-29 14:08 | W.PN.GS2 ---
Addendum entered and electronically signed by Jamal Conte MD 08/29/24 14:20:
Patient seen and examined with surgical PHARMACY INFORMATICS SPECIALIST.
Partial obstructive symptoms are persistent.
No nausea or vomiting poor appetite.
Occasional flatus but she has not moved her bowels in a couple days now.
AF VSS
NAD AAO x 3
Assessment/plan: 69-year-old female with known history of metastatic ovarian cancer having previously undergone multiple abdominal surgeries. Recent lap converted to mini laparotomy with small bowel resection at [facility] 07/12/2024 for SBO.
Early postop bowel obstruction again developed and CT imaging from yesterday 08/28/2024 more suspicious than previously for malignant bowel obstruction which may be involving both the descending colon and adjacent small bowel.
Reviewed with patient CT imaging findings. She is still an active patient at [facility] where she has both managed by her medical oncologist and prior surgical oncology team. Given the increasing suspicion that this is now a malignant
bowel obstruction which is separate from her most recent laparotomy at [facility] patient questioning whether would be beneficial for further care at [facility] which I was in agreement with.
Discussed with hospitalist service and transfer will be initiated.
Will continue to be available for assistance until bed becomes available at [place]
Otherwise continue with current supportive care
Original Note:
Today's Communication / Plan
-
Transfer to [place]
Assessment / Plan
-
Impression
Patient is a 69 yo F with multiple abdominal surgeries in 2004, 2009 and 2010, most recent s/p laparoscopic converted to open lysis of adhesions with resection of necrotic bowel on 07/12/2024, p/w early adhesive pSBO although there is the possibility
of malignant etiology as well given her h/o metastatic ovarian cancer (CA125 79.1). Was planning resumption of chemo this summer with her oncologist at [facility].
CT abdomen pelvis without oral contrast (08/14): mild small bowel dilation concerning for an early SBO versus ileus, her anastomosis looks patent as there is fluid going through it. Transition point appears to be in the pelvis.
SBFT (08/16): continued SB dilation, no air fluid levels, no contrast into colon
X-ray Abd (08/17): continued SB dilation, no air fluid levels, no contrast into colon, no air into descending colon or rectum
X-ray Abd (08/23): improved SB dilation, contrast into colon
CT abd/pelvis with iv and po contrast (08/28): with multiple segments of small bowel wall thickening in the left abdomen/pelvis with associated adjacent descending colon thickening as well. High suspicion for metastatic disease/carcinomatosis.
Improved from admission but still with poor PO intake/tolerance.
Off TPN and on FLD
AFVSS
Labs stable
Plan
-- Reviewed CT findings with patient. She has had all her oncologic care at [facility] (surgical and medical) and for the purposes of continuity of care, would like to be transferred to [facility] to continue her care
-- Continue full liquid diet along with Ensure twice daily, low threshold for restarting tpn
-- Medical management as per primary team
D/C Dr Campos regarding transfer to [facility], medical team agreeable to facilitate
Subjective Data
-
Date of Service: August 29, 2024
Patient seen and examined at bedside with Dr. Conte. Denies n/v. Poor appetite, not tolerating much PO intake. No BM for several days.
Objective Data
-
Intake and Output
08/28/24 08/29/24 08/30/24
06:59 06:59 06:59
Intake Total 540 / 540 600 / 600
Balance 540 / 540 600 / 600
Intake:
Oral fluids 540 / 540 600 / 600
Other:
Number of approximated MODERATE 4
amounts of urine
Vital Signs
Temp Pulse Resp BP Pulse Ox
98.1 F 103 18 139/86 96
08/29/24 07:01 08/29/24 07:01 08/29/24 07:01 08/29/24 07:01 08/29/24 07:01
Lab Results
08/29/24 05:35
08/29/24 05:35
Calcium 8.4 mg/dl (8.4-10.2) 08/29/24 05:35
Phosphorus 4.5 mg/dl (2.5-4.5) 08/23/24 07:07
Magnesium 2.0 mg/dl (1.6-2.3) 08/23/24 07:07
Total Bilirubin 0.4 mg/dl (0.2-1.3) 08/28/24 06:40
AST 24 U/L (14-36) 08/28/24 06:40
ALT 73 U/L (0-35) H 08/28/24 06:40
Alkaline Phosphatase 106 U/L (38-126) 08/28/24 06:40
Total Protein 5.3 g/dl (6.3-8.2) L 08/28/24 06:40
Albumin 2.6 g/dl (3.5-5.0) L 08/28/24 06:40
Physical Exam
-
NAD, underweight
ABD soft, mild distention, nt
Patient has a valdes catheter: No
Patient has a central line: Yes (medport)
[2024-08-29 15:32] VITALS: BP 145/82
--- NOTE | 2024-08-29 15:57 | CM ---
Chart reviewed and patient is for possible transfer to [facility] when bed available, patient has Medicare primary insurance no auth required, ambulance transfer.
Plan; Physician to physician transfer to [facility] when bed is available.
[2024-08-29] MEDS: LEVOTHROID 84 MCG IV (17:51)
[2024-08-29 23:26] VITALS: BP 149/76
[2024-08-30 07:00] VITALS: BP 133/91
[2024-08-30 07:05] LABS: % Basophils 0.2 % (0-2); % Eosinophils 1.8 % (0-6); % Immature Granulocytes 0.2 % (0-0.5); % Lymphocytes 13.9 % (20.5-51.1); % Monocytes 16.5 % (1.7-9.3); % Neutrophils 67.4 % (42.2-75.2); Absolute Eosinophils 0.2 10^3/uL (0-0.7); Absolute Lymphocytes 1.2 10^3/uL (1.2-3.4); Absolute Monocytes 1.4 10^3/uL (0.1-0.6); Absolute Neutrophils 5.7 10^3/uL (1.4-6.5); Hematocrit 21.3 % (37.0-47.0); Hemoglobin 7.4 g/dL (12.0-16.0); Mean Corp Hgb Conc. 34.7 g/dL (33.0-37.0); Mean Corpuscular Volume 95.1 fL (81.0-99.0); Mean Platelet Volume 11.2 fL (7.4-10.4); Nucleated Red Blood Cells % 0 %; Platelet Count 319 10^3/uL (130-400); Red Blood Cell Count 2.24 10^6/uL (4.20-5.40); Red Cell Dist. Width 15.1 % (11.5-14.5); White Blood Cell Count 8.5 10^3/uL (4.8-10.8)
[2024-08-30 07:46] LABS: ALT (SGPT) 42 U/L (0-35); AST (SGOT) 15 U/L (14-36); Albumin 2.8 g/dl (3.5-5.0); Alkaline Phosphatase 97 U/L (38-126); Blood Urea Nitrogen 15 mg/dl (7-17); Calcium 8.7 mg/dl (8.4-10.2); Carbon Dioxide 25 mmol/L (22-30); Chloride 105 mmol/L (98-107); Estimated Creatinine Clearance 38 ml/min; Glucose 89 mg/dl (70-99); Magnesium 1.6 mg/dl (1.6-2.3); Phosphorus 4.1 mg/dl (2.5-4.5); Potassium 4.5 mmol/L (3.5-5.1); Sodium 136 mmol/L (135-145); Total Bilirubin 0.5 mg/dl (0.2-1.3); Total Protein 5.6 g/dl (6.3-8.2); Triglycerides 70 mg/dl (10-149); eGFR 54.73
[2024-08-30] MEDS: HEPARIN 5000 UNITS SC ×2 (08:39→19:53)
[2024-08-30] MEDS: MIRALAX 17 GRAMS PO (08:40)
--- NOTE | 2024-08-30 09:15 | W.PN.GS2 ---
Addendum entered and electronically signed by Jayson Nettles MD 08/30/24 15:54:
I saw and examined the patient independently.
The resident's documentation was reviewed and I agree with the note, assessment and plan except where noted below.
Comment: Awaiting transfer. Partial return of bowel function. Okay for fulls as tolerated. Clear supplements shakes ordered. TPN to be reordered pending calorie count.
Original Note:
Today's Communication / Plan
-
Calorie count
Discharge planning to [facility] once bed becomes available
Assessment / Plan
-
Impression
Patient is a 69 yo F with multiple abdominal surgeries in 2004, 2009 and 2010, most recent s/p laparoscopic converted to open lysis of adhesions with resection of necrotic bowel on 07/12/2024, p/w early adhesive pSBO although there is the possibility
of malignant etiology as well given her h/o metastatic ovarian cancer (CA125 79.1). Was planning resumption of chemo this summer with her oncologist at [facility]. Repeat CT abdomen, on 08/28 suggested malignant small bowel obstruction. Contact initiated
with [facility] and patient would be transferred as soon as the bed becomes available
Imaging review
CT abdomen pelvis without oral contrast (08/14): mild small bowel dilation concerning for an early SBO versus ileus, her anastomosis looks patent as there is fluid going through it. Transition point appears to be in the pelvis.
SBFT (08/16): continued SB dilation, no air fluid levels, no contrast into colon
X-ray Abd (08/17): continued SB dilation, no air fluid levels, no contrast into colon, no air into descending colon or rectum
X-ray Abd (08/23): improved SB dilation, contrast into colon
CT abd/pelvis with iv and po contrast (08/28): with multiple segments of small bowel wall thickening in the left abdomen/pelvis with associated adjacent descending colon thickening as well. High suspicion for metastatic disease/carcinomatosis.
On labs review
No leukocytosis
Hemoglobin stable
ALT improved
BMP grossly normal, ALT improving, creatinine 1.1
Improved from admission but still with poor PO intake/tolerance.
TPN decision pending based on the calorie count
AFVSS
Labs stable
Plan
-Patient aware of her CT scan findings. And she would like to be transferred to [facility] to continue her care since all her medical and surgical oncological care was being taken care of at that center
-- Continue full liquid diet along with Ensure twice daily, low threshold for restarting tpn based on calorie count
-- Medical management as per primary team
Subjective Data
-
Date of Service: August 30, 2024
Patient feeling well, tolerates full liquid diet in the morning but feels full and bloated in the evenings
Did not have a bowel movement in 4 days
Passing flatus
Denies any nausea or vomiting
Moving around with the help of walker
Objective Data
-
Intake and Output
08/29/24 08/30/24 08/31/24
06:59 06:59 06:59
Intake Total 600 / 600 240 / 240
Balance 600 / 600 240 / 240
Intake:
Oral fluids 600 / 600 240 / 240
Other:
Number of approximated MODERATE 3
amounts of urine
Vital Signs
Temp Pulse Resp BP Pulse Ox
97.3 F 89 18 149/76 100
08/29/24 23:26 08/29/24 23:26 08/29/24 23:26 08/29/24 23:26 08/29/24 23:26
Lab Results
08/30/24 06:17
08/30/24 06:17
Calcium 8.7 mg/dl (8.4-10.2) 08/30/24 06:17
Phosphorus 4.1 mg/dl (2.5-4.5) 08/30/24 06:17
Magnesium 1.6 mg/dl (1.6-2.3) 08/30/24 06:17
Total Bilirubin 0.5 mg/dl (0.2-1.3) 08/30/24 06:17
AST 15 U/L (14-36) 08/30/24 06:17
ALT 42 U/L (0-35) H 08/30/24 06:17
Alkaline Phosphatase 97 U/L (38-126) 08/30/24 06:17
Total Protein 5.6 g/dl (6.3-8.2) L 08/30/24 06:17
Albumin 2.8 g/dl (3.5-5.0) L 08/30/24 06:17
Physical Exam
-
Appears very weak and fragile, no apparent distress
Chest clear to auscultation bilaterally
Abdomen soft, mildly distended, normal bowel sounds and nontender
Patient has a valdes catheter: No
Patient has a central line: No
--- NOTE | 2024-08-30 14:04 | W.PN.HOSP.TC ---
Addendum entered and electronically signed by Zohra Gooden MD 08/30/24 18:17:
I saw and evaluated the patient independently. I reviewed the resident�s note and agree with findings and plan as documented by Dr. Berrios.
GENERAL: well developed, well nourished, female in no apparent distress
HEENT: NC/AT
HEART: regular rate and rhythm, +S1, +S2
LUNGS : clear to auscultation bilaterally
ABDOM: soft, nontender, nondistended, + hyperactive bowel sounds
EXT: no cyanosis, clubbing, or edema
NEUROLOGIC: grossly intact
Small bowel obstruction likely due to Descending colon mass--S/p NG tube and course of TPN--CT abdomen/pelvis�IV and oral contrast�with possible signs of colon carcinomatosis, likely recurrence of her ovarian cancer
Repeat abdominal x-ray�descending colon mass--Continue to be on full liquids with Ensure, twice daily--MiraLAX for constipation--TPN if needed, based on calorie count--apprec gen surgery--plans for transfer to [facility] were initiated by surgery
Anemia--Likely iron deficiency due to small bowel obstruction/bowel resection or anemia of chronic disease from malignancy--Hemoglobin trended down to 7.4 today, during this admission--Continue IV iron--Will transfuse if less than 7
Severe protein calorie malnutrition--BMI 16.3, was n.p.o. here for multiple days --Continue full liquid diet with Ensure twice daily--Calorie count--TPN if required based on calorie count
BRADEN--Resolved--Creatinine 1.1 today
Hyperkalemia--Resolved with hydration.
Essential hypertension--Continue carvedilol, lisinopril--Hydralazine as needed
Hypothyroidism--IV levothyroxine at 84 mcg.
Ovarian cancer s/p AMRK--follows at [facility]
H/O oral cancer
DVT prophylaxis-- SC Heparin
CODE STATUS--Full code.
Original Note:
Today's Communication/Plan
-
Continue full liquid diet, with Ensure twice daily
Assessment / Plan
Assessment / Plan
[id number]-old female with PMHx significant for oral squamous cell carcinoma s/p resection, recurrent small bowel resections (2004, 2009, 2010), with most recent hospital admission at from 07/12 to 07/21/2024-for necrotic small bowel
resection secondary to adhesions presents to the hospital for constipation cramping abdominal pain nausea and vomiting with no flatus for 2 days-diagnosed to have recurrent small bowel obstruction.
Plan
Surgery and hospitalist has initiated transfer to [place] yesterday.
#Small bowel obstruction
#Descending colon mass
S/p NG tube and course of TPN
Resolution of the symptoms during the hospital stay, but has worsened over the weekend.
CT abdomen/pelvis�IV and oral contrast�with possible signs of colon carcinomatosis, likely recurrence of her ovarian cancer
Repeat abdominal x-ray�descending colon mass
Continue to be on full liquids with Ensure, twice daily
MiraLAX for constipation
TPN if needed, based on calorie count.
Replete electrolytes as needed
General surgery on board
Analgesics/antiemetics prn
Serial abdominal x-rays
#Anemia
Likely iron deficiency due to small bowel obstruction/bowel resection or anemia of chronic disease from malignancy
Hemoglobin trended down to 7.4 today, during this admission
Continue IV iron
Will transfuse if less than 7
Monitor CBC
#Severe protein calorie malnutrition
BMI 16.3, was n.p.o. here for multiple days
Continue full liquid diet with Ensure twice daily
Calorie count
TPN if required based on calorie count
#BRADEN
Resolved
Creatinine 1.1 today
Monitor BMP for now
#Hyperkalemia
Resolved with hydration.
Monitor BMP
#Essential hypertension
Continue carvedilol, lisinopril
Hydralazine as needed
Hypothyroidism-
IV levothyroxine at 84 mcg.
#Ovarian cancer s/p MARK
#H/O oral cancer
DVT prophylaxis-
Heparin. Subcu
CODE STATUS-
Full code.
Anticipated Discharge: 24 - 48 hours
Subjective/Interval History
-
Date of Service: August 30, 2024
Patient reports passing gas, but no bowel movement. No nausea/vomiting. She is on full liquids.
Objective Data
-
Labs:
Laboratory Results
08/30/24
06:17
WBC 8.5
Hgb 7.4 L
Hct 21.3 L
Plt Count 319
Sodium 136
Potassium 4.5
Chloride 105
Carbon Dioxide 25
BUN 15
Creatinine 1.1 H
Glucose 89
Calcium 8.7
Total Bilirubin 0.5
AST 15
ALT 42 H
Alkaline Phosphatase 97
Vital Signs:
Vital Signs
Temp Pulse Resp BP Pulse Ox
98.2 F 82 18 133/91 99
08/30/24 07:00 08/30/24 07:00 08/30/24 07:00 08/30/24 07:00 08/30/24 07:00
I&O
08/29/24 08/30/24 08/31/24
06:59 06:59 06:59
Intake Total 600 / 600 240 / 240
Balance 600 / 600 240 / 240
Physical Exam
-
General: No Apparent Distress
HEENT: Normocephalic and Atraumatic
Respiratory: Clear to Auscultation
Cardiac: Regular Rhythm and S1/S2
GI: Soft, Nontender, Normal Bowel Sounds and Other (Mildly distended)
Skin: Warm and Dry
Neuro: Awake, Alert, Oriented, AO x 3 and Nonfocal/Grossly Intact
Psych: Calm
--- NOTE | 2024-08-30 14:39 | CM ---
Addendum entered by Samreen Cisse 08/30/24 16:22:
CM called to check on patient status with transfer. [phone] and per bed board patient has 6 others ahead of her waiting for beds. CM will continue to follow for discharge planning needs.
Original Note:
Patient seen at bedside with physicians. Patient stated that she was understanding that the plan was possibly for transfer to [facility]. Surgery consult placed for TPN when at home. CM will continue to follow for discharge planning needs.
Plan; transfer to [facility].
[2024-08-30] MEDS: FERRLECIT 110 MG IV (14:43)
[2024-08-30 15:00] VITALS: BP 136/76
[2024-08-30] MEDS: LEVOTHROID 84 MCG IV (19:10)
[2024-08-30] MEDS: Parenteral Nutrition, Central 1800 IV (20:56)
[2024-08-30 23:00] VITALS: BP 130/69
[2024-08-31 06:02] LABS: Hematocrit 22.2 % (37.0-47.0); Hemoglobin 7.6 g/dL (12.0-16.0); Mean Corp Hgb Conc. 34.2 g/dL (33.0-37.0); Mean Corpuscular Hgb 32.5 pg (27.0-31.0); Mean Corpuscular Volume 94.9 fL (81.0-99.0); Mean Platelet Volume 10.7 fL (7.4-10.4); Platelet Count 351 10^3/uL (130-400); Red Blood Cell Count 2.34 10^6/uL (4.20-5.40); Red Cell Dist. Width 15.3 % (11.5-14.5); White Blood Cell Count 7.5 10^3/uL (4.8-10.8)
[2024-08-31 06:20] VITALS: BMI 16.3
[2024-08-31 06:24] LABS: ALT (SGPT) 34 U/L (0-35); AST (SGOT) 14 U/L (14-36); Alkaline Phosphatase 93 U/L (38-126); Blood Urea Nitrogen 16 mg/dl (7-17); Carbon Dioxide 27 mmol/L (22-30); Chloride 102 mmol/L (98-107); Estimated Creatinine Clearance 46 ml/min; Glucose 114 mg/dl (70-99); Potassium 4.3 mmol/L (3.5-5.1); Sodium 135 mmol/L (135-145); Total Bilirubin 0.3 mg/dl (0.2-1.3); Total Protein 5.9 g/dl (6.3-8.2); eGFR > 60.00
--- NOTE | 2024-08-31 06:47 | W.PN.HOSP.TC ---
Addendum entered and electronically signed by Zohra Gooden MD 08/31/24 16:20:
I saw and evaluated the patient independently. I reviewed the resident�s note and agree with findings and plan as documented by Dr. Berrios.
GENERAL: well developed, well nourished, female in no apparent distress
HEENT: NC/AT
HEART: regular rate and rhythm, +S1, +S2
LUNGS : clear to auscultation bilaterally
ABDOM: soft, nontender, nondistended, + hyperactive bowel sounds
EXT: no cyanosis, clubbing, or edema
NEUROLOGIC: grossly intact
Small bowel obstruction likely due to Descending colon mass--S/p NG tube and course of TPN--CT abdomen/pelvis�IV and oral contrast�with possible signs of colon carcinomatosis, likely recurrence of her ovarian cancer
Repeat abdominal x-ray�descending colon mass--Continue to be on full liquids with Ensure, twice daily--MiraLAX for constipation--TPN started as not taking enough calories in, based on calorie count--apprec gen surgery--plans for transfer to [facility]
were initiated by surgery, still waiting for a bed
Anemia--Likely iron deficiency due to small bowel obstruction/bowel resection or anemia of chronic disease from malignancy--Hemoglobin trended down to 7.4 today, during this admission--Continue IV iron--Will transfuse if less than 7
Severe protein calorie malnutrition--BMI 16.3, was n.p.o. here for multiple days --Continue full liquid diet with Ensure twice daily--Calorie count--TPN
BRADEN--Resolved--Creatinine 1.1 today
Hyperkalemia--Resolved with hydration.
Essential hypertension--Continue carvedilol, lisinopril--Hydralazine as needed
Hypothyroidism--IV levothyroxine at 84 mcg.
Ovarian cancer s/p MARK--follows at [facility]
H/O oral cancer
DVT prophylaxis-- SC Heparin
CODE STATUS--Full code.
Original Note:
Today's Communication/Plan
-
Continue TPN
Assessment / Plan
Assessment / Plan
[id number]-old female with PMHx significant for oral squamous cell carcinoma s/p resection, recurrent small bowel resections (2004, 2009, 2010), with most recent hospital admission at from 07/12 to 07/21/2024-for necrotic small bowel
resection secondary to adhesions presents to the hospital for constipation cramping abdominal pain nausea and vomiting with no flatus for 2 days-diagnosed to have recurrent small bowel obstruction.
Plan
Surgery and hospitalist has initiated transfer to [place] on 08/29/2024
#Small bowel obstruction
#Descending colon mass
S/p NG tube and course of TPN
Resolution of the symptoms during the hospital stay with intermittent worsening.
CT abdomen/pelvis�IV and oral contrast�with possible signs of colon carcinomatosis, likely recurrence of her ovarian cancer
Repeat abdominal x-ray�descending colon mass
Continue to be on full liquids with Ensure, twice daily
Bowel regimen
Restarted on TPN on 08/30/2024, as patient is deficient of calories.
Continue SSI
Replete electrolytes as needed
General surgery on board
Analgesics/antiemetics prn
#Anemia
Likely iron deficiency due to small bowel obstruction/bowel resection or anemia of chronic disease from malignancy
Hemoglobin 7.6
Continue IV iron
Will transfuse if less than 7
Monitor CBC
#Severe protein calorie malnutrition
BMI 16.3, was n.p.o. here for multiple days
Continue full liquid diet with Ensure twice daily
Calorie count
Restarted on TPN on 08/30/2024, as patient is deficient of calories.
#BRADEN
Resolved
Creatinine 0.9 today
Monitor BMP for now
#Hyperkalemia
Resolved with hydration.
Monitor BMP
#Essential hypertension
Continue carvedilol, lisinopril
Hydralazine as needed
Hypothyroidism-
Will resume her home levothyroxine�112 mcg daily
#Ovarian cancer s/p MARK
#H/O oral cancer
DVT prophylaxis-
Heparin. Subcu
CODE STATUS-
Full code.
Anticipated Discharge: 24 - 48 hours
Subjective/Interval History
-
Date of Service: August 31, 2024
Patient reports having bowel movement, is passing flatus.
Objective Data
-
Labs:
Laboratory Results
08/31/24
05:39
WBC 7.5
Hgb 7.6 L
Hct 22.2 L
Plt Count 351
Sodium 135
Potassium 4.3
Chloride 102
Carbon Dioxide 27
BUN 16
Creatinine 0.9
Glucose 114 H
Calcium 9.0
Total Bilirubin 0.3
AST 14
ALT 34
Alkaline Phosphatase 93
Vital Signs:
Vital Signs
Temp Pulse Resp BP Pulse Ox
98 F 88 18 130/69 100
08/30/24 23:00 08/30/24 23:00 08/30/24 23:00 08/30/24 23:00 08/30/24 23:00
I&O
08/29/24 08/30/24 08/31/24
06:59 06:59 06:59
Intake Total 600 / 600 240 / 240 0 / 0
Balance 600 / 600 240 / 240 0 / 0
Physical Exam
-
General: No Apparent Distress
HEENT: Normocephalic and Atraumatic
Respiratory: Clear to Auscultation
Cardiac: Regular Rhythm and S1/S2
GI: Soft, Nontender, Normal Bowel Sounds and Distended
Skin: Warm and Dry
Neuro: Awake, Alert, Oriented and AO x 3
Psych: Calm
[2024-08-31 07:00] VITALS: BP 146/84
--- NOTE | 2024-08-31 07:45 | W.PN.GS2 ---
Addendum entered and electronically signed by Jayson Nettles MD 08/31/24 10:43:
I saw and examined the patient independently.
The resident's documentation was reviewed and I agree with the note, assessment and plan except where noted below.
Comment:
Suppository
TPN
Original Note:
Today's Communication / Plan
-
Add bowel regimen
Continue TPN
Assessment / Plan
-
Impression
Patient is a 69 yo F with multiple abdominal surgeries in 2004, 2009 and 2010, most recent s/p laparoscopic converted to open lysis of adhesions with resection of necrotic bowel on 07/12/2024, p/w early adhesive pSBO although there is the possibility
of malignant etiology as well given her h/o metastatic ovarian cancer (CA125 79.1). Was planning resumption of chemo this summer with her oncologist at [facility]. Repeat CT abdomen, on 08/28 suggested malignant small bowel obstruction. Contact initiated
with [facility] and patient would be transferred as soon as the bed becomes available
Imaging review
CT abdomen pelvis without oral contrast (08/14): mild small bowel dilation concerning for an early SBO versus ileus, her anastomosis looks patent as there is fluid going through it. Transition point appears to be in the pelvis.
SBFT (08/16): continued SB dilation, no air fluid levels, no contrast into colon
X-ray Abd (08/17): continued SB dilation, no air fluid levels, no contrast into colon, no air into descending colon or rectum
X-ray Abd (08/23): improved SB dilation, contrast into colon
CT abd/pelvis with iv and po contrast (08/28): with multiple segments of small bowel wall thickening in the left abdomen/pelvis with associated adjacent descending colon thickening as well. High suspicion for metastatic disease/carcinomatosis.
X-ray abdomen (08/29): Mild distention of the ascending, transverse, and proximal descending colon secondary to a PARTIALLY OBSTRUCTING MALIGNANT MASS in the DISTAL DESCENDING COLON. No radiographic evidence for small bowel obstruction.
On labs review
No leukocytosis
Hemoglobin stable
LFTs improving
BRADEN resolved
Improved from admission but still with poor PO intake/tolerance.
Restarted TPN yesterday on 08/30
AFVSS
Labs stable
Plan
-Patient aware of her CT scan findings. And she would like to be transferred to [facility] to continue her care since all her medical and surgical oncological care was being taken care of at that center
-- Continue full liquid diet along with Ensure twice daily, continue TPN as patient is not getting enough calories with diet alone
-- Medical management as per primary team
-- Add bowel regimen
Subjective Data
-
Date of Service: August 31, 2024
Patient seen and examined at bedside this morning
No bowel movement in the past 5 days
Passing flatus
Not eating enough, calorie counts done, TPN restarted yesterday
Some cramps in left lower quadrant
Objective Data
-
Intake and Output
08/30/24 08/31/24 09/01/24
06:59 06:59 06:59
Intake Total 240 / 240 0 / 0
Balance 240 / 240 0 / 0
Intake:
Oral fluids 240 / 240 0 / 0
Other:
Number of approximated MODERATE 3 2
amounts of urine
Vital Signs
Temp Pulse Resp BP Pulse Ox
98 F 88 18 130/69 100
08/30/24 23:00 08/30/24 23:00 08/30/24 23:00 08/30/24 23:00 08/30/24 23:00
Lab Results
08/31/24 05:39
08/31/24 05:39
Calcium 9.0 mg/dl (8.4-10.2) 08/31/24 05:39
Phosphorus 4.1 mg/dl (2.5-4.5) 08/30/24 06:17
Magnesium 1.6 mg/dl (1.6-2.3) 08/30/24 06:17
Total Bilirubin 0.3 mg/dl (0.2-1.3) 08/31/24 05:39
AST 14 U/L (14-36) 08/31/24 05:39
ALT 34 U/L (0-35) 08/31/24 05:39
Alkaline Phosphatase 93 U/L (38-126) 08/31/24 05:39
Total Protein 5.9 g/dl (6.3-8.2) L 08/31/24 05:39
Albumin 3.0 g/dl (3.5-5.0) L 08/31/24 05:39
Physical Exam
-
Very weak and fragile, no apparent distress
Abdomen soft, nontender, mildly distended and normal bowel sounds
Chest bilaterally clear to auscultation
Alert, oriented, good insight and judgment
Patient has a valdes catheter: No
Patient has a central line: No
[2024-08-31] MEDS: HEPARIN 5000 UNITS SC ×2 (07:56→19:45)
[2024-08-31] MEDS: MIRALAX 17 GRAMS PO (07:56)
[2024-08-31] MEDS: GLYCERIN SUPPOSITORY ADULT 1 SUPP RECTAL (09:49)
[2024-08-31] MEDS: FERRLECIT 110 MG IV (13:31)
[2024-08-31 16:03] VITALS: BP 154/83
--- NOTE | 2024-08-31 16:11 | CM ---
Patient seen at bedside with physician Tara garibay. Patient continues to wait for bed at [facility], CM will place TPN form for script on chart for completion. CM will continue to follow for discharge planning needs.
Plan; transfer to [facility]
[2024-08-31] MEDS: Parenteral Nutrition, Central 1800 IV (21:13)
[2024-08-31 23:12] VITALS: BP 145/87
[2024-09-01 06:00] VITALS: BMI 16.5
--- NOTE | 2024-09-01 06:30 | PTCARENOTE ---
There was a [employer] D[employer]atologist Downtime on 09/01/2024 from 0100 to 09/01/2024 at 0415. Downtime documentation of patient's care, including medication administrations, has been reconciled in the electronic record per guidelines. Refer to the
patient's paper chart under the miscellaneous tab to see printed paper medication records and downtime forms.
[2024-09-01] MEDS: SYNTHROID 112 MCG PO (06:31)
[2024-09-01 08:00] LABS: Hematocrit 21.4 % (37.0-47.0); Hemoglobin 7.6 g/dL (12.0-16.0); Mean Corp Hgb Conc. 35.5 g/dL (33.0-37.0); Mean Corpuscular Hgb 33.5 pg (27.0-31.0); Mean Corpuscular Volume 94.3 fL (81.0-99.0); Mean Platelet Volume 11.4 fL (7.4-10.4); Platelet Count 371 10^3/uL (130-400); Red Blood Cell Count 2.27 10^6/uL (4.20-5.40); Red Cell Dist. Width 15.3 % (11.5-14.5)
[2024-09-01] MEDS: HEPARIN 5000 UNITS SC ×2 (08:18→21:15)
[2024-09-01] MEDS: MIRALAX 17 GRAMS PO (08:19)
[2024-09-01 08:33] LABS: ALT (SGPT) 26 U/L (0-35); AST (SGOT) 14 U/L (14-36); Albumin 2.9 g/dl (3.5-5.0); Alkaline Phosphatase 83 U/L (38-126); Blood Urea Nitrogen 24 mg/dl (7-17); Calcium 8.8 mg/dl (8.4-10.2); Carbon Dioxide 26 mmol/L (22-30); Chloride 102 mmol/L (98-107); Estimated Creatinine Clearance 47 ml/min; Glucose 109 mg/dl (70-99); Potassium 5.2 mmol/L (3.5-5.1); Sodium 134 mmol/L (135-145); Total Bilirubin 0.3 mg/dl (0.2-1.3); Total Protein 5.6 g/dl (6.3-8.2); eGFR > 60.00
--- NOTE | 2024-09-01 09:02 | W.PN.HOSP.TC ---
Addendum entered and electronically signed by Zohra Gooden MD 09/01/24 19:39:
I saw and evaluated the patient independently. I reviewed the resident�s note and agree with findings and plan as documented by Dr. Berrios.
GENERAL: well developed, well nourished, female in no apparent distress
HEENT: NC/AT
HEART: regular rate and rhythm, +S1, +S2
LUNGS : clear to auscultation bilaterally
ABDOM: soft, nontender, nondistended, + hyperactive bowel sounds
EXT: no cyanosis, clubbing, or edema
NEUROLOGIC: grossly intact
Small bowel obstruction likely due to Descending colon mass--S/p NG tube and continues on TPN--CT abdomen/pelvis�IV and oral contrast with possible signs of colon carcinomatosis, likely recurrence of her ovarian cancer
Repeat abdominal x-ray�descending colon mass--Continue to be on full liquids with Ensure, twice daily--MiraLAX for constipation--TPN re-started as not taking enough calories in, based on calorie count--apprec gen surgery--plans for transfer to [facility]
were initiated by surgery, still waiting for a bed
Anemia--Likely iron deficiency due to small bowel obstruction/bowel resection or anemia of chronic disease from malignancy--Hemoglobin trended down to 7.4 today, during this admission--Continue IV iron--Will transfuse if less than 7
Severe protein calorie malnutrition--BMI 16.3, was n.p.o. here for multiple days --Continue full liquid diet with Ensure twice daily--Calorie count--TPN
BRADEN--Resolved--Creatinine 1.1 today
Hyperkalemia--Resolved with hydration.
Essential hypertension--Continue carvedilol, lisinopril--Hydralazine as needed
Hypothyroidism--IV levothyroxine at 84 mcg.
Ovarian cancer s/p MARK--follows at [facility]
H/O oral cancer
DVT prophylaxis-- SC Heparin
CODE STATUS--Full code.
Original Note:
Today's Communication/Plan
-
Continue PPN
Assessment / Plan
Assessment / Plan
[id number]-36-xnjv-old female with PMHx significant for oral squamous cell carcinoma s/p resection, recurrent small bowel resections (2004, 2009, 2010), with most recent hospital admission at from 07/12 to 07/21/2024-for necrotic small bowel
resection secondary to adhesions presents to the hospital for constipation cramping abdominal pain nausea and vomiting with no flatus for 2 days-diagnosed to have recurrent small bowel obstruction.
Plan
Surgery and hospitalist has initiated transfer to [place] on 08/29/2024. Reached out to transfer center at [place], spoke to Dr. Larios from [facility] about who would be the accepting physician. He mentioned it is going to be DrEileen
Conor, but would like to confirm first. Said he would update with the necessary information. Will reach out to them again.
#Small bowel obstruction
#Descending colon mass
S/p NG tube and course of TPN
Resolution of the symptoms during the hospital stay with intermittent worsening.
CT abdomen/pelvis�IV and oral contrast�with possible signs of colon carcinomatosis, likely recurrence of her ovarian cancer
Repeat abdominal x-ray�descending colon mass
Continue to be on full liquids with Ensure, twice daily
Bowel regimen
Restarted on TPN on 08/30/2024, as patient is deficient of calories. Continue
Continue SSI
Replete electrolytes as needed
General surgery on board
Analgesics/antiemetics prn
#Anemia
Likely iron deficiency due to small bowel obstruction/bowel resection or anemia of chronic disease from malignancy
Hemoglobin 7.6
Continue IV iron
Will transfuse if less than 7
Monitor CBC
#Severe protein calorie malnutrition
BMI 16.3, was n.p.o. here for multiple days
Continue full liquid diet with Ensure twice daily
Calorie count
Restarted on TPN on 08/30/2024, as patient is deficient of calories.
#BRADEN
Resolved
Creatinine 0.9 today
Monitor BMP for now
#Hyperkalemia
5.2 today
Monitor BMP
#Essential hypertension
Continue carvedilol, lisinopril
Hydralazine as needed
Hypothyroidism-
levothyroxine�112 mcg daily
#Ovarian cancer s/p MARK
#H/O oral cancer
DVT prophylaxis-
Heparin. Subcu
CODE STATUS-
Full code.
Anticipated Discharge: 24 - 48 hours
Subjective/Interval History
-
Date of Service: September 01, 2024
Patient reports having bowel movement and passing flatus.
Objective Data
-
Labs:
Laboratory Results
09/01/24
07:08
WBC 6.0
Hgb 7.6 L
Hct 21.4 L
Plt Count 371
Sodium 134 L
Potassium 5.2 H
Chloride 102
Carbon Dioxide 26
BUN 24 H
Creatinine 0.9
Glucose 109 H
Calcium 8.8
Total Bilirubin 0.3
AST 14
ALT 26
Alkaline Phosphatase 83
Vital Signs:
Vital Signs
Temp Pulse Resp BP Pulse Ox
98.0 F 94 14 145/87 96
08/31/24 23:12 08/31/24 23:12 08/31/24 23:12 08/31/24 23:12 08/31/24 23:12
I&O
08/31/24 09/01/24 09/02/24
06:59 06:59 06:59
Intake Total 0 / 0 1500 / 1500
Balance 0 / 0 1500 / 1500
Physical Exam
-
General: No Apparent Distress
HEENT: Normocephalic and Atraumatic
Respiratory: Clear to Auscultation
Cardiac: Regular Rhythm and S1/S2
GI: Soft, Nontender and Normal Bowel Sounds (Hyperactive bowel sounds)
Skin: Warm and Dry
Neuro: Awake, Alert, Oriented, AO x 3 and Nonfocal/Grossly Intact
Psych: Calm
--- NOTE | 2024-09-01 10:02 | CM ---
CM called to [facility] patient is 'one of the first on the list for transfer' per nursing postal supervisor, updated physician. CM will continue to follow for discharge planning needs.
Plan; transfer to [facility]
[2024-09-01] MEDS: FERRLECIT 110 MG IV (13:24)
[2024-09-01 15:39] VITALS: BP 145/79
--- NOTE | 2024-09-01 17:17 | W.PN.UPDATE ---
Update Note
Progress Note Update
Patient is hyperkalemic at 5.2. Reached out to surgery for decreasing potassium in TPN. Okay as per surgery.
[2024-09-01] MEDS: Parenteral Nutrition, Central 1800 IV (21:15)
[2024-09-02 00:12] VITALS: BP 130/64
[2024-09-02 06:06] VITALS: BMI 16.8
[2024-09-02] MEDS: SYNTHROID 112 MCG PO (06:15)
[2024-09-02 06:50] LABS: Hematocrit 20.8 % (37.0-47.0); Hemoglobin 7.2 g/dL (12.0-16.0); Mean Corp Hgb Conc. 34.6 g/dL (33.0-37.0); Mean Corpuscular Hgb 32.1 pg (27.0-31.0); Mean Corpuscular Volume 92.9 fL (81.0-99.0); Mean Platelet Volume 9.8 fL (7.4-10.4); Platelet Count 357 10^3/uL (130-400); Red Blood Cell Count 2.24 10^6/uL (4.20-5.40); Red Cell Dist. Width 14.9 % (11.5-14.5); White Blood Cell Count 5.4 10^3/uL (4.8-10.8)
[2024-09-02 06:53] LABS: ALT (SGPT) 22 U/L (0-35); AST (SGOT) 14 U/L (14-36); Albumin 2.8 g/dl (3.5-5.0); Alkaline Phosphatase 76 U/L (38-126); Blood Urea Nitrogen 29 mg/dl (7-17); Calcium 8.8 mg/dl (8.4-10.2); Carbon Dioxide 25 mmol/L (22-30); Chloride 104 mmol/L (98-107); Estimated Creatinine Clearance 47 ml/min; Glucose 117 mg/dl (70-99); Potassium 4.8 mmol/L (3.5-5.1); Sodium 134 mmol/L (135-145); Total Bilirubin 0.3 mg/dl (0.2-1.3); Total Protein 5.5 g/dl (6.3-8.2); eGFR > 60.00
[2024-09-02 07:00] VITALS: BP 145/90
--- NOTE | 2024-09-02 07:23 | W.PN.GS2 ---
Addendum entered and electronically signed by Jamal Conte MD 09/02/24 11:12:
Patient seen and examined with surgical services assistant in follow-up. Agree with documented progress note with additions noted here.
Ms. Pham is in good spirits this morning and states that she feels better than she has in numerous days. Abdominal distention less, no nausea, tolerated full liquids. Had loose bowel movement which gave relief of some of her distention and
discomfort.
AF VSS
NAD AAO x 3
Resting comfortably in chair at hospital bedside
A/P: 69-year-old female with probable malignant obstructing affecting descending colon and potentially adjacent small bowel although this appears to be more of a partial colonic obstruction. Known metastatic ovarian cancer with left-sided
retroperitoneal mass/metastasis.
Although patient is feeling well today continue to recommend transfer to [facility] as a palliative procedure (endoscopic stenting, proximal diversion, resection likely not feasible) would improve long-term treatment of her obstruction.
Will continue with TPN awaiting bed availability for transfer
Original Note:
Today's Communication / Plan
-
Continue TPN
Assessment / Plan
-
Impression
Patient is a 69 yo F with multiple abdominal surgeries in 2004, 2009 and 2010, most recent s/p laparoscopic converted to open lysis of adhesions with resection of necrotic bowel on 07/12/2024, p/w early adhesive pSBO although there is the possibility
of malignant etiology as well given her h/o metastatic ovarian cancer (CA125 79.1). Was planning resumption of chemo this summer with her oncologist at [facility] Repeat CT abdomen, on 08/28 suggested malignant small bowel obstruction. Contact initiated
with [facility] and patient would be transferred as soon as the bed becomes available
Imaging review
CT abdomen pelvis without oral contrast (08/14): mild small bowel dilation concerning for an early SBO versus ileus, her anastomosis looks patent as there is fluid going through it. Transition point appears to be in the pelvis.
SBFT (08/16): continued SB dilation, no air fluid levels, no contrast into colon
X-ray Abd (08/17): continued SB dilation, no air fluid levels, no contrast into colon, no air into descending colon or rectum
X-ray Abd (08/23): improved SB dilation, contrast into colon
CT abd/pelvis with iv and po contrast (08/28): with multiple segments of small bowel wall thickening in the left abdomen/pelvis with associated adjacent descending colon thickening as well. High suspicion for metastatic disease/carcinomatosis.
X-ray abdomen (08/29): Mild distention of the ascending, transverse, and proximal descending colon secondary to a PARTIALLY OBSTRUCTING MALIGNANT MASS in the DISTAL DESCENDING COLON. No radiographic evidence for small bowel obstruction.
On labs review
No leukocytosis
Mild anemia-getting blood transfusions as per primary team
Mild hyponatremia
Potassium levels normal
LFTs within normal limits
BRADEN resolved
Improved from admission but still with poor PO intake/tolerance.
Restarted TPN on 08/30-given the potassium levels are normal no need to adjust potassium
Plan
-Patient aware of her CT scan findings. And she would like to be transferred to [facility] to continue her care since all her medical and surgical oncological care was being taken care of at that center
-- Continue full liquid diet along with Ensure twice daily, continue TPN as patient is not getting enough calories with diet alone
-- Medical management as per primary team
Subjective Data
-
Date of Service: September 02, 2024
Patient seen at bedside, sitting comfortably in chair
Feels fine, reports feels the best she had in weeks
Objective Data
-
Intake and Output
09/01/24 09/02/24 09/03/24
06:59 06:59 06:59
Intake Total 1500 / 1500 480 / 480
Balance 1500 / 1500 480 / 480
Intake:
Oral fluids 600 / 600 480 / 480
TPN/PPN 900 / 900
Other:
Number of approximated SMALL 2
amounts of urine
Number of approximated MODERATE 3
amounts of urine
Vital Signs
Temp Pulse Resp BP Pulse Ox
98.5 F 93 18 130/64 97
09/02/24 00:12 09/02/24 00:12 09/02/24 00:12 09/02/24 00:12 09/02/24 00:12
Lab Results
09/02/24 06:30
09/02/24 06:30
Calcium 8.8 mg/dl (8.4-10.2) 09/02/24 06:30
Phosphorus 4.1 mg/dl (2.5-4.5) 08/30/24 06:17
Magnesium 1.6 mg/dl (1.6-2.3) 08/30/24 06:17
Total Bilirubin 0.3 mg/dl (0.2-1.3) 09/02/24 06:30
AST 14 U/L (14-36) 09/02/24 06:30
ALT 22 U/L (0-35) 09/02/24 06:30
Alkaline Phosphatase 76 U/L (38-126) 09/02/24 06:30
Total Protein 5.5 g/dl (6.3-8.2) L 09/02/24 06:30
Albumin 2.8 g/dl (3.5-5.0) L 09/02/24 06:30
Physical Exam
-
No apparent distress, weak and fragile
Abdomen soft, nontender, normal bowel sounds
Chest bilaterally clear to auscultation, no wheezes rales or rhonchi
Patient has a valdes catheter: No
Patient has a central line: No
[2024-09-02] MEDS: MIRALAX 17 GRAMS PO (07:40)
[2024-09-02] MEDS: HEPARIN 5000 UNITS SC (07:40)
[2024-09-02 08:07] VITALS: BP 145/90
--- NOTE | 2024-09-02 10:16 | W.PN.HOSP.TC ---
Addendum entered and electronically signed by Zohra Gooden MD 09/02/24 19:04:
I saw and evaluated the patient independently. I reviewed the resident�s note and agree with findings and plan as documented by Dr. Berrios.
GENERAL: well developed, well nourished, female in no apparent distress
HEENT: NC/AT
HEART: regular rate and rhythm, +S1, +S2
LUNGS : clear to auscultation bilaterally
ABDOM: soft, nontender, nondistended, + hyperactive bowel sounds
EXT: no cyanosis, clubbing, or edema
NEUROLOGIC: grossly intact
Small bowel obstruction likely due to Descending colon mass--S/p NG tube and continues on TPN--CT abdomen/pelvis�IV and oral contrast with possible signs of colon carcinomatosis, likely recurrence of her ovarian cancer
Repeat abdominal x-ray�descending colon mass--Continue to be on full liquids with Ensure, twice daily--MiraLAX for constipation--TPN re-started as not taking enough calories in, based on calorie count--apprec gen surgery--plans for transfer to [facility]
were initiated by surgery, has bed and OK for transfer
Anemia--Likely iron deficiency due to small bowel obstruction/bowel resection or anemia of chronic disease from malignancy--Hemoglobin trended down to 7.2 today, during this admission--Continue IV iron--agree with transfusion of pRBC
Severe protein calorie malnutrition--BMI 16.3, was n.p.o. here for multiple days --Continue full liquid diet with Ensure twice daily--Calorie count--TPN
BRADEN--Resolved
Hyperkalemia--Resolved with hydration.
Essential hypertension--Continue carvedilol, lisinopril--Hydralazine as needed
Hypothyroidism--IV levothyroxine at 84 mcg.
Ovarian cancer s/p MARK--follows at [facility]
H/O oral cancer
DVT prophylaxis-- SC Heparin
CODE STATUS--Full code.
Original Note:
Today's Communication/Plan
-
1 PRBC transfusion
Continue TPN
Continue full liquids
Assessment / Plan
Assessment / Plan
[place]-53-ezci-old female with PMHx significant for oral squamous cell carcinoma s/p resection, recurrent small bowel resections (2004, 2009, 2010), with most recent hospital admission at from 07/12 to 07/21/2024-for necrotic small bowel
resection secondary to adhesions presents to the hospital for constipation cramping abdominal pain nausea and vomiting with no flatus for 2 days-diagnosed to have recurrent small bowel obstruction.Resolution of the symptoms during the hospital stay
with intermittent worsening.
CT abdomen/pelvis�IV and oral contrast�with possible signs of colon carcinomatosis, likely recurrence of her ovarian cancer
Repeat abdominal x-ray�descending colon mass
Plan
Surgery and hospitalist has initiated transfer to [place] on 08/29/2024. Transfer when bed available. Reached out to transfer center at [facility] [place], spoke to Dr. Larios from [facility] [place] about who would be the accepting physician. He
mentioned it is going to be Dr. Perdomo, but would like to confirm first. Said he would update with the necessary information.
#Anemia
Likely iron deficiency due to small bowel obstruction/bowel resection or anemia of chronic disease from malignancy
Hemoglobin 7.6 >>7.2
Plan for 1 PRBC today
Consent obtained
Type and crossmatch
Monitor H&H
Continue IV iron
#Small bowel obstruction
#Descending colon mass
S/p NG tube and course of TPN
Continue to be on full liquids with Ensure, twice daily
Bowel regimen
Restarted on TPN on 08/30/2024, as patient is deficient of calories. Continue
Continue SSI
Replete electrolytes as needed
General surgery on board
Analgesics/antiemetics prn
#Severe protein calorie malnutrition
BMI 16.3, was n.p.o. here for multiple days
Continue full liquid diet with Ensure twice daily
Calorie count
Restarted on TPN on 08/30/2024, as patient is deficient of calories.
#BRADEN
Resolved
Creatinine 0.9 today
Monitor BMP for now
#Hyperkalemia
5.2 >>>4.8
Adjust potassium in TPN
Monitor BMP
#Essential hypertension
Continue carvedilol, lisinopril
Hydralazine as needed
Hypothyroidism-
levothyroxine�112 mcg daily
#Ovarian cancer s/p MARK
#H/O oral cancer
DVT prophylaxis-
Heparin. Subcu
CODE STATUS-
Full code.
Anticipated Discharge: 24 - 48 hours
Subjective/Interval History
-
Date of Service: September 02, 2024
Patient does not report any abdominal pain/discomfort, nausea/vomiting. She is tolerating full liquid diet well.
Objective Data
-
Labs:
Laboratory Results
09/02/24
06:30
WBC 5.4
Hgb 7.2 L
Hct 20.8 L*
Plt Count 357
Sodium 134 L
Potassium 4.8
Chloride 104
Carbon Dioxide 25
BUN 29 H
Creatinine 0.9
Glucose 117 H
Calcium 8.8
Total Bilirubin 0.3
AST 14
ALT 22
Alkaline Phosphatase 76
Vital Signs:
Vital Signs
Temp Pulse Resp BP Pulse Ox
97.8 F 105 20 145/90 100
09/02/24 07:00 09/02/24 07:00 09/02/24 07:00 09/02/24 07:00 09/02/24 07:00
I&O
09/01/24 09/02/24 09/03/24
06:59 06:59 06:59
Intake Total 1500 / 1500 480 / 480
Balance 1500 / 1500 480 / 480
Review of Systems
-
All other systems: Reviewed and negative
Physical Exam
-
General: Comfortable and Appears Chronically Ill
HEENT: Normocephalic and Atraumatic
Respiratory: Clear to Auscultation
Cardiac: Regular Rhythm and S1/S2
GI: Soft, Nontender, Nondistended and Normal Bowel Sounds
Skin: Warm and Dry
Neuro: Awake, Alert, Oriented, AO x 3 and Nonfocal/Grossly Intact
Psych: Calm
[2024-09-02 11:36] VITALS: BP 137/90
[2024-09-02 11:55] VITALS: BP 136/83
--- NOTE | 2024-09-02 13:26 | CM ---
Addendum entered by Samreen Cisse 09/02/24 16:58:
Patient for discharge to [place]; per physician bed confirmed at [facility]. Patient will need ambulance transportation.
Original Note:
CM called to check on patient status with transfer. [phone] and per bed board patient is top of the list and she is anticipating transfer today or at the latest tomorrow. Patient seen at bedside with physician on . Patient plan is for
transition to [facility]. CM will continue to follow for discharge planning needs.
Plan; transfer to [place].
[2024-09-02 14:47] VITALS: BP 160/90
[2024-09-02] MEDS: FERRLECIT 110 MG IV (14:49)
--- NOTE | 2024-09-02 16:52 | PTCARENOTE ---
report given to Nurse Bobby at [phone]
== END 2024-09-02 19:06 | disposition home health service (06) | DRG 374 ==
LOC: 4 WEST ACU 14:39
PROVIDERS: Internal Medicine; Registered Nurse; Student in an Organized Health Care Education/Training Program; Surgery; ADMITTING PHYSICIAN Hospitalist; ATTENDING PHYSICIAN Internal Medicine; CONSULT PHYSICIAN Surgery; EMERGENCY PHYSICIAN Student in an Organized Health Care Education/Training Program; FAMILY PHYSICIAN Family Medicine
PROC: 3E0436Z Introduction of Nutritional Substance into Central Vein, Percutaneous Approach (ICD-10-PCS; 2024-08-18)
PROC: 30233N1 Transfusion of Nonautologous Red Blood Cells into Peripheral Vein, Percutaneous Approach (ICD-10-PCS; 2024-09-02)
DX: C18.6 Malignant neoplasm of descending colon (principal); E43 Unspecified severe protein-calorie malnutrition; K85.90 Acute pancreatitis without necrosis or infection, unspecified; K56.609 Unspecified intestinal obstruction, unspecified as to partial versus complete obstruction; N17.9 Acute kidney failure, unspecified; Z68.1 Body mass index [BMI] 19.9 or less, adult; E87.6 Hypokalemia; D64.9 Anemia, unspecified; I10 Essential (primary) hypertension; E78.00 Pure hypercholesterolemia, unspecified; E03.9 Hypothyroidism, unspecified; E87.5 Hyperkalemia; Z85.43 Personal history of malignant neoplasm of ovary
CPT/HCPCS: 71045; 74018; 74019; 74177; 74250; 80048; 80053; 81003; 81015; 82607; 82728; 82746; 82962; 83540; 83550; 83690; 83735; 84100; 84443; 84478; 85025; 85027; 86304; 86850; 86900; 86901; 86920; 87086; 96360; 97161; 97530; 99284; J2916; P9016; Q9967